=== PATIENT | female | born 1955 | race Caucasian/White ===

== ENCOUNTER → 2023-08-30 11:39 | Outpatient (REF) | payer OTHER, MEDICARE, SELFPAY | LOC: RAD 11:39 | PROVIDERS: ATTENDING PHYSICIAN Surgery Vascular Surgery; FAMILY PHYSICIAN Psychiatry & Neurology Neurology | DX: I65.22 Occlusion and stenosis of left carotid artery (principal) | CPT/HCPCS: 93880 ==

== ENCOUNTER 2023-10-27 18:59 | Inpatient (IN) | payer OTHER, MEDICARE, SELFPAY ==
[2023-10-27 15:24] VITALS: BP 167/66
[2023-10-27 15:29] LABS: Glucose - Point of Care 462 mg/dl (70-99)
[2023-10-27 15:51] VITALS: BMI 39.2
--- NOTE | 2023-10-27 16:17 | ED.GENMED ---
History of Present Illness
<Blaise Quintana PA-C - Last Filed: 10/27/23 17:53>
General
Chief Complaint: Blood Sugar Problem
Source: patient
Exam Limitations: none
Time Seen by Provider: 10/27/23 15:53
Travel History
Have you had any contact with someone who has COVID-19?: No
Do you have any symptoms of coronavirus? Fever > 100 degrees, chills, cough, shortness of breath, sore throat, loss of taste or smell, muscle aches, or headache?: No
History of Present Illness
History of Present Illness:
68-year-old female insulin-dependent diabetic with history of kidney transplant presents with generalized feeling of fatigue and weakness. She states she has had elevated blood sugars at home. She is on insulin. She denies chest pain. No
shortness of breath. She denies abdominal pain but does note about 7 episodes of loose stool daily. No urinary symptoms. She denies any blood in the stool. No other complaints at this time
Past History
<Blaise Quintana PA-C - Last Filed: 10/27/23 17:53>
Past History
ED Past Medical History: Asthma, CHF, HTN, Hypercholesterolemia, IDDM, NIDDM, Renal failure, Hypothyroidism, Psychiatric (Depression), Other (Left internal carotid artery 70% stenosis May 2022) and Other (History of sarcoidosis, diverticulitis,
pancreatitis, IBS, Migraine, TIA May 2022); Negative CAD
ED Past Surgical History: Cholecystectomy, Gynecological (Hysterectomy), Orthopedic (Carpal tunnel), Urological (Kidney tranplant 2013) and Other (Left arm fistula, hysterectomy and D&C, carpal tunnel surgery)
Social History
Tobacco: Former smoker
Alcohol: None
Drug: None and Former user
Personal:
Living: with family
Employment: Disabled
Family History
Family History: Hypertension
Phy Exam
<Blaise Quintana PA-C - Last Filed: 10/27/23 17:53>
Physical Exam
Physical Exam:
General: Well-appearing female no acute respiratory distress
HEENT: Normocephalic atraumatic
Heart: Regular rate and rhythm no murmurs
Lungs: Clear to auscultation bilaterally no wheezing
Abdomen: Soft nontender nondistended no guarding or rebound
Extremities: No cyanosis or edema
Course
<Blaise Quintana PA-C - Last Filed: 10/27/23 17:53>
Orders/Labs/Results
Orders:
Orders
10/27/23 Dinner
1800 calorie (15 carb) Diabetic
At Your Request: Limited Participation
Diabetic Diet: Low Residue
10/27/23 16:44
Complete Blood Count/With Diff Urgent
Comprehensive Metabolic Panel Urgent
Magnesium Urgent
10/27/23 17:29
0.9% Sodium Chloride 1000 ml [Nss] 1,000 ml IV BOLUS
10/27/23 17:39
Urinalysis Reflex To Culture Urgent
Date Specimen was Collected: 10/27/23
Time Specimen was Collected: 17:37
Urine Microscopic Reflex Cult Urgent
Urine Culture Urgent
KYMBER[facility] Source: U
Specimen Description:
Date Specimen was Collected: 10/27/23
Time Specimen was Collected: 17:37
10/27/23 17:50
Stool Culture Urgent
KYMBERLY Source: Feces/Stool
Specimen Description:
10/27/23 17:51
STOOL [C difficile Antigen & Toxins] Urgent
KYMB[facility] Source: Feces/Stool
Specimen Description:
Stool Culture Urgent
KYMB[facility] Source: Feces/Stool
Specimen Description:
10/27/23 17:55
Giardia/Cryptosporidium Ag Urgent
KYMBER[facility] Source: Feces/Stool
Specimen Description:
10/27/23 17:56
Add On- LAB Routine
Tests Added?: mag level
10/27/23 18:11
CR Abdomen - 2 Views Urgent
Comment:
Reason For Exam: abdominal pain
10/27/23 18:13
Insulin Aspart Pen [Novolog Flexpen] 20 units SC NOW STA
10/27/23 18:18
Insulin Aspart Pen [Novolog Flexpen] 25 units SC NOW STA
10/27/23 18:30
0.9% Sodium Chloride 1000 ml [Nss] 1,000 ml IV 120 mls/hr
Abnormal Lab Results
10/27/23 10/27/23 10/27/23
15:27 16:44 17:39
RBC 3.99 L 10^6/uL
(4.20-5.40)
Hgb 10.9 L g/dL
(12.0-16.0)
Hct 33.4 L %
(37.0-47.0)
MCHC 32.6 L g/dL
(33.0-37.0)
MPV 10.7 H fL
(7.4-10.4)
Absolute Neuts (auto) 7.4 H 10^3/uL
(1.4-6.5)
Absolute Monos (auto) 0.7 H 10^3/uL
(0.1-0.6)
Neutrophils % 75.5 H %
(42.2-75.2)
Lymphocytes % 12.6 L %
(20.5-51.1)
Sodium 127 L mmol/L
(135-145)
Potassium 5.7 H mmol/L
(3.5-5.1)
Carbon Dioxide 21 L mmol/L
(22-30)
BUN 26 H mg/dl
(7-17)
Glucose 422 H mg/dl
(70-99)
Leukocyte Esterase Rfl Trace A
(Negative)
Urine Bacteria (Reflex) Moderate A
(Negative)
Urine Glucose 3+ A
(Negative)
POC Glucose 462 H* mg/dl
(70-99)
10/27/23 16:44
10/27/23 16:44
Vital Signs
Initial and Last Documented VS:
Initial Vital Signs
Temp Pulse Resp BP Pulse Ox
97.9 F 64 18 167/66 98
10/27/23 15:24 10/27/23 15:24 10/27/23 15:24 10/27/23 15:24 10/27/23 15:24
Last Documented Vital Signs
Temp Pulse Resp BP Pulse Ox
97.9 F 64 18 167/66 97
10/27/23 15:24 10/27/23 15:24 10/27/23 15:24 10/27/23 15:24 10/27/23 16:38
<Jamia Miller MD - Last Filed: 10/27/23 18:20>
Orders/Labs/Results
Orders:
Orders
10/27/23 Dinner
1800 calorie (15 carb) Diabetic
At Your Request: Limited Participation
Diabetic Diet: Low Residue
10/27/23 16:44
Complete Blood Count/With Diff Urgent
Comprehensive Metabolic Panel Urgent
Magnesium Urgent
10/27/23 17:29
0.9% Sodium Chloride 1000 ml [Nss] 1,000 ml IV BOLUS
10/27/23 17:39
Urinalysis Reflex To Culture Urgent
Date Specimen was Collected: 10/27/23
Time Specimen was Collected: 17:37
Urine Microscopic Reflex Cult Urgent
Urine Culture Urgent
KYMB[facility] Source: U
Specimen Description:
Date Specimen was Collected: 10/27/23
Time Specimen was Collected: 17:37
10/27/23 17:50
Stool Culture Urgent
[facility] Source: Feces/Stool
Specimen Description:
10/27/23 17:51
STOOL [C difficile Antigen & Toxins] Urgent
[facility] Source: Feces/Stool
Specimen Description:
Stool Culture Urgent
[facility] Source: Feces/Stool
Specimen Description:
10/27/23 17:55
Giardia/Cryptosporidium Ag Urgent
[facility] Source: Feces/Stool
Specimen Description:
10/27/23 17:56
Add On- LAB Routine
Tests Added?: mag level
10/27/23 18:11
CR Abdomen - 2 Views Urgent
Comment:
Reason For Exam: abdominal pain
10/27/23 18:13
Insulin Aspart Pen [Novolog Flexpen] 20 units SC NOW STA
10/27/23 18:18
Insulin Aspart Pen [Novolog Flexpen] 25 units SC NOW STA
10/27/23 18:30
0.9% Sodium Chloride 1000 ml [Nss] 1,000 ml IV 120 mls/hr
Abnormal Lab Results
10/27/23 10/27/23 10/27/23
15:27 16:44 17:39
RBC 3.99 L 10^6/uL
(4.20-5.40)
Hgb 10.9 L g/dL
(12.0-16.0)
Hct 33.4 L %
(37.0-47.0)
MCHC 32.6 L g/dL
(33.0-37.0)
MPV 10.7 H fL
(7.4-10.4)
Absolute Neuts (auto) 7.4 H 10^3/uL
(1.4-6.5)
Absolute Monos (auto) 0.7 H 10^3/uL
(0.1-0.6)
Neutrophils % 75.5 H %
(42.2-75.2)
Lymphocytes % 12.6 L %
(20.5-51.1)
Sodium 127 L mmol/L
(135-145)
Potassium 5.7 H mmol/L
(3.5-5.1)
Carbon Dioxide 21 L mmol/L
(22-30)
BUN 26 H mg/dl
(7-17)
Glucose 422 H mg/dl
(70-99)
Leukocyte Esterase Rfl Trace A
(Negative)
Urine Bacteria (Reflex) Moderate A
(Negative)
Urine Glucose 3+ A
(Negative)
POC Glucose 462 H* mg/dl
(70-99)
10/27/23 16:44
10/27/23 16:44
Vital Signs
Initial and Last Documented VS:
Initial Vital Signs
Temp Pulse Resp BP Pulse Ox
97.9 F 64 18 167/66 98
10/27/23 15:24 10/27/23 15:24 10/27/23 15:24 10/27/23 15:24 10/27/23 15:24
Last Documented Vital Signs
Temp Pulse Resp BP Pulse Ox
97.9 F 64 18 167/66 97
10/27/23 15:24 10/27/23 15:24 10/27/23 15:24 10/27/23 15:24 10/27/23 16:38
<Blaise Quintana PA-C - Last Filed: 10/27/23 17:53>
MDM/Problems Addressed
Differential Diagnosis Includes:
Diarrhea. Elevated blood sugars. Benign abdominal exam. Will check labs to evaluate for acidosis. Fingerstick blood sugar 462. Check for electrolyte abnormality otherwise.
<Blaise Quintana PA-C - Last Filed: 10/27/23 17:53>
*Critical Care Note
Total Time (30-74mins, 75-104mins- exclusive of procedures): Not Applicable
<Blaise Quintana PA-C - Last Filed: 10/27/23 17:53>
Update Note
Update Note:
Sodium 127. Serum glucose 422. No anion gap. Patient overall feels unwell looks dry on exam will hydrate. Stool studies ordered secondary to diarrhea. Will hydrate with saline. Admit to hospitalist. Renal transplant status hyperglycemia and
dehydration
ED Attending Note
<Blaise Quintana PA-C - Last Filed: 10/27/23 17:53>
-
Portions of this chart may have been created with voice recognition software.� Occasional wrong word or��sound alike� substitutions may have occurred due to the inherent limitations of voice recognition software.
<Jamia Miller MD - Last Filed: 10/27/23 18:20>
ED Attending Note
Patient seen and examined by attending physician: Yes
I performed the substantive portion of visit, reviewed & personally made and approve the management plan that is documented in note by myself or LOTTIE.: Yes
ED Attending Note:
Patient appears nontoxic. Lungs are clear abdomen is soft nontender. Patient will be admitted for [id number] blood sugar and dehydration.
Discharge Plan
Departure
Patient Disposition: Admit
Date of Disposition: 10/27/23
Time of Disposition: 17:52
Admit to: Med/Surg
Presentation/result/management discussed w/ accepting MD/DO: Hospitalist
Discharge Problem:
Dehydration
Prescriptions:
No Action
pantoprazole 40 MG tablet,delayed release (DR/EC)
40 mg PO DAILY
tacrolimus 1 MG capsule
4 mg PO BID
escitalopram oxalate 20 MG tablet
20 mg PO DAILY
mycophenolate sodium 180 MG tablet,delayed release (DR/EC)
360 mg PO BID
acetaminophen [Tylenol Extra Strength] 500 MG tablet
1,000 mg PO BIDPRN PRN (Reason: mild pain)
cyanocobalamin (vitamin B-12) 1,000 MCG tablet
1,000 mcg PO HS
magnesium oxide 500 MG tablet
500 mg PO BID
ezetimibe 10 MG tablet
10 mg PO DAILY
spironolactone 25 mg Tablet
25 mg PO DAILY Qty: 30 0RF
losartan 50 mg Tablet
50 mg PO BID Qty: 60 0RF
carvedilol 6.25 mg Tablet
6.25 mg PO BID
loperamide [Imodium] 2 mg Capsule
2 mg PO DAILY
aspirin 81 mg Tablet,Delayed Release (Dr/Ec)
81 mg PO HS
albuterol sulfate 90 mcg/actuation Hfa Aerosol Inhaler
2 puff INHALATION R Q4HPRN PRN (Reason: sob)
insulin lispro [Humalog KwikPen Insulin] 100 unit/mL Insulin Pen
15 unit SC AC
budesonide-formoterol 160-4.5 mcg/actuation HFA aerosol inhaler
1 puff INHALATION R BID
omega 2-syl-hos-fish oil [Fish Oil] 1,000 mg (120 mg-180 mg) Capsule
1 cap PO BID
insulin glargine U-300 conc [Toujeo Max U-300 SoloStar] 300 unit/mL (3 mL) Insulin Pen
68 unit SC HS
atorvastatin 80 mg tablet
80 mg PO HS
hydralazine 50 mg tablet
50 mg PO BID
Referrals:
PRIVATE,PHYSICIAN [Family Provider] -
Interventions
Interventions:
*Risk Screen - Suicide Last Done: 10/27/23 15:24
*General Assessment Last Done: 10/27/23 15:24
*Neglect/Abuse Screening Last Done: 10/27/23 15:24
*ED COVID-19 Vaccine History Last Done: 10/27/23 15:24
ED- Cardiac Assessment Last Done: 10/27/23 15:52
ED- Neurological Assessment Last Done: 10/27/23 16:38
ED- Pulmonary Assessment Last Done: 10/27/23 16:38
Discharge Date and Time
Print Language: CAP[place] VERDE[place]
[2023-10-27 16:52] LABS: % Basophils 0.5 % (0-2); % Eosinophils 3.9 % (0-6); % Immature Granulocytes 0.4 % (0-0.5); % Lymphocytes 12.6 % (20.5-51.1); % Monocytes 7.1 % (1.7-9.3); % Neutrophils 75.5 % (42.2-75.2); Absolute Basophils 0.1 10^3/uL (0-0.2); Absolute Eosinophils 0.4 10^3/uL (0-0.7); Absolute Lymphocytes 1.2 10^3/uL (1.2-3.4); Absolute Monocytes 0.7 10^3/uL (0.1-0.6); Absolute Neutrophils 7.4 10^3/uL (1.4-6.5); Hematocrit 33.4 % (37.0-47.0); Hemoglobin 10.9 g/dL (12.0-16.0); Mean Corp Hgb Conc. 32.6 g/dL (33.0-37.0); Mean Corpuscular Hgb 27.3 pg (27.0-31.0); Mean Corpuscular Volume 83.7 fL (81.0-99.0); Mean Platelet Volume 10.7 fL (7.4-10.4); Nucleated Red Blood Cells % 0 %; Platelet Count 241 10^3/uL (130-400); Red Blood Cell Count 3.99 10^6/uL (4.20-5.40); Red Cell Dist. Width 13.7 % (11.5-14.5); White Blood Cell Count 9.8 10^3/uL (4.8-10.8)
[2023-10-27 17:07] LABS: ALT (SGPT) 15 U/L (0-35); AST (SGOT) 17 U/L (14-36); Albumin 3.5 g/dl (3.5-5.0); Alkaline Phosphatase 82 U/L (38-126); Blood Urea Nitrogen 26 mg/dl (7-17); Calcium 9.9 mg/dl (8.4-10.2); Carbon Dioxide 21 mmol/L (22-30); Chloride 100 mmol/L (98-107); Estimated Creatinine Clearance 90 ml/min; Glucose 422 mg/dl (70-99); Potassium 5.7 mmol/L (3.5-5.1); Sodium 127 mmol/L (135-145); Total Bilirubin 0.6 mg/dl (0.2-1.3); Total Protein 6.6 g/dl (6.3-8.2); eGFR > 60.00
[2023-10-27] MEDS: NSS 1000 IV ×2 (17:45→20:37)
[2023-10-27 17:53] LABS: Urine Albumin Negative (Neg - Trace); Urine Bilirubin Negative (Negative); Urine Character Clear (Clear); Urine Color Yellow; Urine Glucose 3+ (Negative); Urine Ketone Negative (Negative); Urine Leukocyte Trace (Negative); Urine Nitrite Negative (Negative); Urine Occult Blood Negative (Negative); Urine Urobilinogen Negative (Neg - 1+)
[2023-10-27 18:01] LABS: Urine Red Blood Cell 0-2 /HPF (0-2); Urine White Cell 0-2 /HPF (0-5)
[2023-10-27 18:02] LABS: Urine Bacteria Moderate (Negative)
--- NOTE | 2023-10-27 18:04 | HPS.HSE ---
Addendum entered and electronically signed by Mohit Lugo MD 10/28/23 07:48:
see separate note
Original Note:
Family Physician
-
Family Physician: PHYSICIAN PRIVATE
Chief Complaint
-
Diarrhea and Elevated Glucose
History of Present Illness
Patient is a 68 y/o female who a past medical history of diabetes mellitus, kidney transplant, asthma/chronic obstructive pulmonary disease, heart failure, hypertension, hyperlipidemia, depression, left carotid artery stenosis, and gastroesophageal
reflux disease who presents for chronic diarrhea for about 8 months and high blood sugars with fatigue for the past few months. She reports intermittent episodes of diarrhea with 7 to 8 loose to liquid stools per day. She admits to occasional
constipation during this time period with the last episode occurring many weeks ago. She reports blood sugar readings in the 300s to 400s over the past few months. She states that she sometimes titrates her insulin to account for high blood sugar
but does not often do this. She denies vomiting, abdominal pain, hematochezia, chest pain, and shortness of breath.
Medical History
Past Medical History
Past Medical History: Reports Other
Additional Past Medical History:
Diabetes Mellitus, Insulin Dependent
Essential Hypertension
Hyperlipidemia
Renal Transplant
Sarcoidosis
Asthma
Depression
GERD
Irritable Bowel Syndrome
Left Carotid Artery Stenosis s/p Endarterectomy
Past Surgical History: Reports Other
Additional Past Surgical History:
Kidney Transplant
Left Endarterectomy
Hysterectomy
Bilateral Carpal Tunnel
Social History
Tobacco: Former Smoker
Alcohol: Occasional
Family History
Family History: Not pertinent
Allergies / Home Medications
Allergies reflects when Allergies were last updated in [facility].
Home Medications with original date entered in [facility]
Allergy/Medication List:
Allergies
Allergy/AdvReac Type Severity Reaction Status Date / Time
adhesive tape [Adhesive Tape] Allergy Rash Verified 10/27/23 15:26
Cephalosporins Allergy resp.failur Verified 10/27/23 15:26
e
exenatide [From [place]] Allergy pancreatiti Verified 10/27/23 18:17
s
penicillin V Allergy resp.failur Verified 10/27/23 15:26
e
pollen extracts Allergy Hayfever Verified 10/27/23 15:26
sulfamethoxazole Allergy low blood Verified 10/27/23 18:17
sugar
tree and shrub pollen Allergy Unknown Verified 10/27/23 15:26
trimethoprim Allergy low blood Verified 10/27/23 18:17
sugar
SOME BERRIES Allergy Unknown Uncoded 10/27/23 15:26
Home Medications
escitalopram oxalate 20 mg tablet 20 mg PO DAILY Mental Health/Anxiety 08/05/16
mycophenolate sodium 180 mg tablet,delayed release 360 mg PO BID Transplant 08/05/16
pantoprazole 40 mg tablet,delayed release 40 mg PO DAILY Gastrointestinal issue 08/05/16
tacrolimus 1 mg capsule, immediate-release 4 mg PO BID Transplant 08/05/16
acetaminophen 500 mg tablet (Tylenol Extra Strength) 1,000 mg PO BIDPRN PRN mild pain 09/05/19
cyanocobalamin (vitamin B-12) 1,000 mcg tablet 1,000 mcg PO HS Supplement 09/01/21
ezetimibe 10 mg tablet 10 mg PO DAILY High cholesterol 09/01/21
magnesium oxide 500 mg PO BID Electrolyte Repletion 09/01/21
losartan 50 mg tablet 50 mg PO BID Blood pressure #60 tabs 06/10/22
spironolactone 25 mg tablet 25 mg PO DAILY Blood pressure #30 tabs 06/10/22
albuterol sulfate 90 mcg/actuation aerosol inhaler 2 puff inhalation R Q4HPRN PRN sob 10/27/23
aspirin 81 mg tablet,delayed release 81 mg PO HS 10/27/23
atorvastatin 80 mg tablet 80 mg PO HS High cholesterol 10/27/23
budesonide-formoterol HFA 160 mcg-4.5 mcg/actuation aerosol inhaler 1 puff inhalation R BID 10/27/23
carvedilol 6.25 mg tablet 6.25 mg PO BID 10/27/23
hydralazine 50 mg tablet 50 mg PO BID Blood pressure 10/27/23
insulin glargine U-300 conc 300 unit/mL (3 mL) subcutaneous pen (Toujeo Max U-300 SoloStar) 68 unit SC HS 10/27/23
insulin lispro 100 unit/mL subcutaneous pen (Humalog KwikPen (U-100) Insulin) 15 unit SC AC 10/27/23
loperamide 2 mg capsule 2 mg PO DAILY 10/27/23
omega 4-pau-cix-fish oil 1,000 mg (120 mg-180 mg) capsule (Fish Oil) 1 cap PO BID 10/27/23
Review of Systems
-
A 12 point ROS was completed and negative except as noted: Yes
Constitutional: Denies Fever or Chills
Respiratory: Denies Cough or Trouble Breathing
Cardiac: Denies Chest Pain or Palpitations
Abdomen/GI: Reports See HPI
Physical Exam
Vital Signs
Vital Signs
Temp Pulse Resp BP Pulse Ox
97.9 F 64 18 167/66 97
10/27/23 15:24 10/27/23 15:24 10/27/23 15:24 10/27/23 15:24 10/27/23 16:38
Physical Exam
General: Comfortable and Conversant
HEENT: Anicteric and Atraumatic
Respiratory: Clear and Non Labored Respirations
Cardiac: S1/S2 and Regular Rhythm
GI: Soft, Non Tender and Non Distended
Rectal: Deferred by Provider
Musculoskeletal: No Clubbing, No Cyanosis and No Edema
Skin: Warm and Dry
Neuro: Awake, Alert and Oriented
Psych: Calm
Laboratory Results
-
10/27/23 16:44
10/27/23 16:44
Laboratory Results
Total Bilirubin 0.6 mg/dl (0.2-1.3) 10/27/23 16:44
AST 17 U/L (14-36) 10/27/23 16:44
ALT 15 U/L (0-35) 10/27/23 16:44
Alkaline Phosphatase 82 U/L (38-126) 10/27/23 16:44
Data Reviewed
-
Lab Data: Labs Reviewed by me
Old Records: Reviewed
Impression/Plan
-
Diarrhea
-Patient with prior history of irritable bowel syndrome
-Consult GI
-Check stool studies
-Change Protonix to Pepcid
-Hold magnesium supplement as possible contributing factor
-Allow low residue diet
Hyperkalemia
-Hold losartan and Spironolactone
-Continue IVFs
-Recheck potassium later this evening
Hyponatremia, mild
-Corrected sodium 132
-Continue IVFs
-Recheck sodium in AM
Diabetes Mellitus, Insulin Dependent - Currently with Hyperglycemia
-Check HgbA1c
-Continue Lantus 35 units BID
-Give Novolog 25 units Now- then continue 15 units with meals
-Further changes based on sugars
Essential Hypertension
-Continue Coreg, and hydralazine
-Hold losartan and spironolactone due to hyperkalemia
Hyperlipidemia
-Continue atorvastatin and ezetimibe
Renal Transplant
-Continue mycophenolate and tacrolimus
Asthma / COPD, no acute exacerbation
-Continue budesonide
Depression
-Continue Lexapro
GERD
-Change Protonix to Pepcid
Hx Left Carotid Artery Stenosis s/p Left Carotid Endarterectomy
-Continue aspirin
Sarcoidosis with Bone/Joint Involvement
-Stable
DVT Proph: Lovenox
Code Status: Full Code
--- NOTE | 2023-10-27 18:15 | W.PN.UPDATE ---
Update Note
Progress Note Update
I saw and examined the patient.
The WELL TESTER or PA's note was reviewed and I agree with the note.
Formulated the plan together
Comment:
Female with multiple medical problems has been having diarrhea for the past 8 months. She has not seen a GI doctor since then. She has also been seeing elevated blood sugars for the past couple of months. She usually follows up with Dr. Valerio
from GI and also with Dr. Duffy from endocrinology. Patient denies any abdominal pain. She denies any recent antibiotic intake. Patient has a history of cadaveric renal transplant at [facility] 10 years ago. Follows up with
Glory .
She was feeling weak and blood sugars were elevated therefore came to the hospital. On examination nontoxic-appearing awake alert oriented
Not in any distress denies any abdominal pain cardiovascular system S1-S2 appreciated
Chest clear to auscultation
Abdomen soft and nontender
Neuroexam is nonfocal
No pedal edema
# Diarrhea
Immunocompromised patient
Stool studies ordered
Check x-ray of the abdomen to rule out constipation
Colonoscopy 03/04/2022-stool in the entire examined colon diverticulosis in sigmoid colon and descending colon. Internal hemorrhoids
Hold magnesium
GI consultation
# Hyponatremia-spurious from elevated blood sugar
Repeat BMP later tonight
# Hyperkalemia secondary to hyperglycemia
Repeat BMP tonight
# Poorly controlled diabetes with neuropathy
Change Lantus insulin to 35 units twice daily
NovoLog insulin 25 units now
update hemoglobin A1c
IV Fluids
15 units with sliding scale coverage
1800 ADA diet
Dietary consultation
# Renal transplant 10 years ago- donor transplant at [facility]-2013
Continue tacrolimus 4 mg p.o. twice daily, mycophenolate 360 g p.o. twice daily
Check tacrolimus level
# Ugoqsovyymzo-yvvdduhgt-xlinzehhc
hold losartan and Aldactone until potassium is stable
Continue hydralazine, Coreg
# Hyperlipidemia-continue Zetia, atorvastatin
# Depression-continue Lexapro
# Anemia check iron studies
# History of TIA 05/30/22-status post left CEA 06/01/2022
# Asthma-continue desonide and albuterol inhalers or:
# Fibromyalgia
# Chronic HFpEF
Echo 10/21/2021-normal LV size and function. EF 55 to 60%. Mild to moderate LVH.
# Chronic back pain
# Diverticulosis
# Sarcoidosis by history
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
# Obesity with a BMI of 39 weight loss recommended
# DVT prophylaxis-Lovenox
# Full code
See H&P for details
complex decision making
[2023-10-27 18:30] LABS: Magnesium 1.8 mg/dl (1.6-2.3)
[2023-10-27 18:35] LABS: Iron 66 ug/dl (37-170)
[2023-10-27 18:44] LABS: Percent Saturation 25 % (20-50); Total Iron Binding Capacity 257 ug/dl (265-497)
[2023-10-27 18:59] LABS: Glucose - Point of Care 353 mg/dl (70-99)
[2023-10-27 19:29] LABS: Ferritin 53.9 ng/ml (11.1-264.0)
[2023-10-27 19:43] LABS: Vitamin B12 898 pg/ml (239-931)
[2023-10-27 19:50] VITALS: BMI 39.4
[2023-10-27 19:59] VITALS: BP 200/94
[2023-10-27] MEDS: SYMBICORT 160/4.5 MCG INHALER 1 PUFF INH (20:01)
[2023-10-27 20:37] LABS: Glucose - Point of Care 325 mg/dl (70-99)
[2023-10-27] MEDS: NOVOLOG FLEXPEN 25 UNITS SC (20:37)
[2023-10-27] MEDS: APRESOLINE 50 MG PO (20:38)
[2023-10-27] MEDS: COREG 6.25 MG PO (20:38)
[2023-10-27] MEDS: MYFORTIC DELAYED REL. 360 MG PO (20:38)
[2023-10-27] MEDS: PROGRAF 4 MG PO (20:39)
[2023-10-27 20:45] VITALS: BP 148/56
[2023-10-27 21:05] LABS: Blood Urea Nitrogen 24 mg/dl (7-17); Calcium 9.7 mg/dl (8.4-10.2); Carbon Dioxide 20 mmol/L (22-30); Chloride 101 mmol/L (98-107); Estimated Creatinine Clearance 90 ml/min; Glucose 316 mg/dl (70-99); Potassium 5.3 mmol/L (3.5-5.1); Sodium 129 mmol/L (135-145); eGFR > 60.00
[2023-10-27 21:15] VITALS: BMI 39.2
[2023-10-27 21:36] LABS: TSH Reflex To Free T4 1.18 uIU/ml (0.47-4.68)
[2023-10-27 22:58] LABS: Glucose - Point of Care 240 mg/dl (70-99)
[2023-10-27] MEDS: LANTUS 0.349999999999999978 UNITS SC (23:00)
[2023-10-27] MEDS: LIPITOR 80 MG PO (23:12)
[2023-10-27] MEDS: VITAMIN B-12 1000 MCG PO (23:12)
[2023-10-27] MEDS: ASPIR LOW (ENTERIC COATED) 81 MG PO (23:12)
[2023-10-27 23:18] VITALS: BP 145/58
[2023-10-28] VITALS (12 sets, daily range): BP systolic 16–187; BP diastolic 37–85; PULSE 64; BMI 39.2
[2023-10-28] MEDS: NSS 1000 IV (04:57)
[2023-10-28 06:00] LABS: Hematocrit 30.2 % (37.0-47.0); Hemoglobin 9.8 g/dL (12.0-16.0); Mean Corp Hgb Conc. 32.5 g/dL (33.0-37.0); Mean Corpuscular Hgb 27.5 pg (27.0-31.0); Mean Corpuscular Volume 84.6 fL (81.0-99.0); Mean Platelet Volume 10.7 fL (7.4-10.4); Platelet Count 239 10^3/uL (130-400); Red Blood Cell Count 3.57 10^6/uL (4.20-5.40); Red Cell Dist. Width 13.8 % (11.5-14.5); White Blood Cell Count 9.6 10^3/uL (4.8-10.8)
[2023-10-28 06:39] LABS: Blood Urea Nitrogen 23 mg/dl (7-17); Calcium 9.2 mg/dl (8.4-10.2); Carbon Dioxide 20 mmol/L (22-30); Chloride 106 mmol/L (98-107); Estimated Creatinine Clearance 90 ml/min; Glucose 201 mg/dl (70-99); Magnesium 1.7 mg/dl (1.6-2.3); Potassium 4.7 mmol/L (3.5-5.1); Sodium 132 mmol/L (135-145); eGFR > 60.00
--- NOTE | 2023-10-28 07:45 | PTCARENOTE ---
Patient arrived on unit @1945 from ED via stretcher, ambulate from stretcher to bed. Patient AAOx3, denies any pain or discomfort. Skin assessment completed, oriented to unit, call birch within reach.
[2023-10-28 08:03] LABS: Glucose - Point of Care 199 mg/dl (70-99)
[2023-10-28] MEDS: SYMBICORT 160/4.5 MCG INHALER 1 PUFF INH ×2 (08:35→20:52)
[2023-10-28] MEDS: NOVOLOG FLEXPEN 15 UNITS SC ×2 (08:36→16:16)
[2023-10-28] MEDS: NOVOLOG FLEXPEN-MODERATE RESISTANCE 1 UNITS SC (08:37)
[2023-10-28] MEDS: MYFORTIC DELAYED REL. 360 MG PO ×2 (08:37→19:31)
[2023-10-28] MEDS: PROGRAF 4 MG PO ×2 (08:37→19:31)
[2023-10-28] MEDS: COREG 6.25 MG PO ×2 (08:37→19:31)
[2023-10-28] MEDS: APRESOLINE 50 MG PO ×2 (08:38→19:31)
[2023-10-28] MEDS: LEXAPRO 20 MG PO (08:38)
[2023-10-28] MEDS: PEPCID 20 MG PO (08:39)
[2023-10-28] MEDS: ZETIA 10 MG PO (08:39)
[2023-10-28] MEDS: MAGNESIUM SULFATE 102 GRAMS IV (08:45)
[2023-10-28] MEDS: LANTUS 0.359999999999999987 UNITS SC (08:45)
[2023-10-28 08:53] LABS: Glycohemoglobin (HgbA1c) 12.8 % (4.0-5.6)
--- NOTE | 2023-10-28 08:55 | CON.GI ---
Addendum entered and electronically signed by Ella Valerio MD 10/28/23 15:40:
I saw and examined the patient.
The HYDRAULICS TEACHER or PA's note was reviewed and I agree with the note.
Comment: 68-year-old female with history of sarcoidosis, kidney transplant, currently on immunosuppression with tacrolimus, COPD, CVA, fibromyalgia, history of cholecystectomy presenting with acute on chronic diarrhea. She has history of chronic
diarrhea for several years, she was previously tested for celiac disease that was negative, biopsies showing mild increase in intraepithelial lymphocytes on upper endoscopy without any villous blunting, could not confirm for celiac disease.
Previous colonoscopy with acute on chronic inflammation on biopsies in 2021, CMV negative, thought to be self-limiting enterocolitis, no evidence of inflammatory bowel disease noted. Testing negative for bowel obstruction. Baseline bowel movements
at least 3-4 but in the last several months about 7 to 8-week nocturnal episodes and urgency. No blood or mucus. Recent weight loss of 10 pounds in the last 1 month but not prior to that. This admission coming in with diarrhea and some
electrolyte abnormalities.
She is currently on tacrolimus and also magnesium through her transplant team.
-Acute on chronic diarrhea, unclear etiology
Stool studies negative for C. difficile, Cryptosporidium, Giardia, norovirus, cultures pending. Previous workup negative for infection
Agree with rechecking celiac panel, fecal fat
Flexible sigmoidoscopy showed normal colon, random biopsies still pending
Okay for low residue, low lactose diet
Monitor electrolytes and replete
Avoid artificial sweeteners. Magnesium supplements would cause diarrhea, could see if we can cut down on the magnesium as an outpatient. As an inpatient we could hold the magnesium and monitor electrolytes while she is in the hospital to see if
the diarrhea improves as well.
Will do MR enterography to evaluate the small bowel.
Will follow-up
Original Note:
Consultation
-
Date/Time Consultation Requested: 10/27/23 @ 19:45
Date/Time Consultation Performed: 10/28/23 @ 08:30
Requesting Provider: Jonna Rae PA-C
Performing Provider: ASHLEIGH Martinez; Dr. Ella Valerio
Reason for Consultation: diarrhea
Medical History
Chief Complaint / HPI
Chief Complaint: diarrhea, elevated glucose
History of Present Illness:
The pt is a 68 yo female with a complex medical history significant for renal transplant in 2013 on Tacrolimus, diabetes mellitus on insulin, IBS with chronic diarrhea, hypertension, hyperlipidemia, COPD, chronic CHF, left carotid artery stenosis,
depression, chronic GERD, hiatal hernia, who presented to the emergency room secondary to ongoing diarrhea and elevated glucose. We are being asked to evaluate for the presenting symptoms. The patient is well-known to Dr. Valerio outpatient, had
been previously seen in October 2021 with complaints of chronic diarrhea with intermittent worsening bouts. She had EGD and colonoscopy at that time, with a colonoscopy revealing normal endoscopic exam but biopsies consistent with a focal active
colitis without chronicity and CMV negative. EGD without convincing evidence for celiac disease. She had also undergone evaluation for diarrhea in the past in 2016 in which colonoscopy was done showing concern for possible lymphocytic colitis but
inconclusive. Fecal fats were normal at this time. She had CT imaging done in 2021 without contrast secondary to her history of kidney disease and kidney transplant which did not show any concerning GI findings aside from a relatively stable 5.8
cm right lobe liver cyst. She has not followed up in the office since 2021, but reports she has been having ongoing diarrhea over the past 8 months. She notes that she will have anywhere from 7-8 bowel movements daily with urgency and fecal
incontinence. She notes they are primarily loose with occasional formed stool every few weeks but primarily with diarrhea. She does use Imodium once daily which does help at times but other times does not. She will get constipated as mentioned
above but does not take anything as she is afraid to have the opposite effect with her ongoing diarrhea. She is on chronic magnesium supplement with magnesium oxide twice daily as directed by her keyboarding teacher after her kidney transplant which she
has been on for 10 years. She otherwise denies any abdominal pain, nausea, vomiting, heartburn, reflux, dysphagia, odynophagia, melena, hematochezia, hematemesis, fevers, or chills. She does note she has lost about 10 pounds over the past month
but did not notice this and her appetite has not been changed. She denies regular use of NSAIDs. She does reports infrequent alcohol use. She denies any new medications. She does endorse using artificial sweeteners as she is diabetic and does
drink diet soda. She does not admit to any intolerance of lactose or gluten. She denies any family history's for colon cancer or other GI cancers or disorders. Per nursing she had 2 bowel movements yesterday and none as of this morning. Upon
admission stool studies were sent for Giardia, crypto, C. difficile, stool WBC, and stool culture which are pending. Significant lab findings on admission include sodium 127, potassium 5.7, WBC 9.8, hemoglobin 10.9, BUN 26, creatinine 0.7, glucose
422, magnesium 1.8, serum iron 66, TIBC 257, iron saturation 25, ferritin 53.9, total bilirubin 0.6, AST 17, ALT 15, alk phos 82, vitamin B12 898, TSH 1.18. She did undergo an x-ray of her abdomen which did not show any significant stool burden
with a nonobstructive bowel gas pattern. She was admitted for further evaluation by GI and for monitoring of her electrolytes. Noted this morning with a sodium of 132 and potassium of 4.7. Magnesium was placed on hold at the time of admission.
Past Medical History
Past Medical History: Asthma, CHF, COPD, CVA, Fibromyalgia, GERD, HTN, Hypercholesterolemia, IDDM and Other (Renal transplant, sarcoidosis, gout, obesity, depression, hypomagnesemia, vitamin D deficiency, osteoporosis)
Past Surgical History: Cholecystectomy and Other (Renal transplant 2013, history of AV fistula left upper extremity, left carpal tunnel release, hysterectomy, right carpal tunnel release, rectocele/cystocele repair 2015)
Social History
Tobacco: Non-Smoker
Alcohol: None
Drug: None
Family History
Family History: Reviewed & Not Pertinent
Allergies / Home Medications
Allergy/AdvReac Type Severity Reaction Status Date / Time
adhesive tape [Adhesive Tape] Allergy Rash Verified 10/27/23 15:26
Cephalosporins Allergy resp.failur Verified 10/27/23 15:26
e
exenatide [From [place]] Allergy pancreatiti Verified 10/27/23 18:17
s
penicillin V Allergy resp.failur Verified 10/27/23 15:26
e
pollen extracts Allergy Hayfever Verified 10/27/23 15:26
sulfamethoxazole Allergy low blood Verified 10/27/23 18:17
sugar
tree and shrub pollen Allergy Unknown Verified 10/27/23 15:26
trimethoprim Allergy low blood Verified 10/27/23 18:17
sugar
SOME BERRIES Allergy Unknown Uncoded 10/27/23 15:26
�Medication �Instructions �Recorded
escitalopram oxalate 20 mg tablet 20 mg PO DAILY Mental 08/05/16
Health/Anxiety
mycophenolate sodium 180 mg 360 mg PO BID Transplant 08/05/16
tablet,delayed release
pantoprazole 40 mg tablet,delayed 40 mg PO DAILY Gastrointestinal 08/05/16
release issue
tacrolimus 1 mg capsule, 4 mg PO BID Transplant 08/05/16
immediate-release
acetaminophen 500 mg tablet 1,000 mg PO BIDPRN PRN mild pain 09/05/19
(Tylenol Extra Strength)
cyanocobalamin (vitamin B-12) 1,000 mcg PO HS Supplement 09/01/21
1,000 mcg tablet
ezetimibe 10 mg tablet 10 mg PO DAILY High cholesterol 09/01/21
magnesium oxide 500 mg PO BID Electrolyte Repletion 09/01/21
losartan 50 mg tablet 50 mg PO BID Blood pressure #60 06/10/22
tabs
spironolactone 25 mg tablet 25 mg PO DAILY Blood pressure #30 06/10/22
tabs
albuterol sulfate 90 mcg/actuation 2 puff inhalation R Q4HPRN PRN sob 10/27/23
aerosol inhaler
aspirin 81 mg tablet,delayed 81 mg PO HS 10/27/23
release
atorvastatin 80 mg tablet 80 mg PO HS High cholesterol 10/27/23
budesonide-formoterol HFA 160 1 puff inhalation R BID 10/27/23
mcg-4.5 mcg/actuation aerosol
inhaler
carvedilol 6.25 mg tablet 6.25 mg PO BID 10/27/23
hydralazine 50 mg tablet 50 mg PO BID Blood pressure 10/27/23
insulin glargine U-300 conc 300 68 unit SC HS 10/27/23
unit/mL (3 mL) subcutaneous pen
(Toujeo Max U-300 SoloStar)
insulin lispro 100 unit/mL 15 unit SC AC 10/27/23
subcutaneous pen (Humalog KwikPen
(U-100) Insulin)
loperamide 2 mg capsule 2 mg PO DAILY 10/27/23
omega 7-eha-han-fish oil 1,000 mg 1 cap PO BID 10/27/23
(120 mg-180 mg) capsule (Fish Oil)
Review of Systems
-
History Source: Patient
Constitutional: Reports Weight Loss (10 pounds)
EENT: Reports No Symptoms
Respiratory: Reports No Symptoms
Cardiac: Reports No Symptoms
Abdomen/GI: Reports Diarrhea
: Reports No Symptoms
Musculoskeletal: Reports No Symptoms
Skin: Reports No Symptoms
Neurological: Reports No Symptoms
Vital Signs
Temp Pulse Resp BP Pulse Ox
97.7 F 65 16 187/85 96
10/28/23 07:30 10/28/23 08:49 10/28/23 08:49 10/28/23 07:30 10/28/23 08:49
Physical Exam
Exam
General: Well Developed, Well Nourished and No Apparent Distress
HEENT: Normocephalic, Anicteric and Atraumatic
Respiratory: Clear
Cardiac: S1/S2 and Regular Rhythm
Breast: Deferred by me
GI: Soft, Non Tender, Non Distended, Normal Bowel Sounds and Other (obese abdomen)
Rectal: Deferred by Provider
Musculoskeletal: No Edema
Skin: Warm and Dry
Neuro: Awake, Alert and Oriented
Psych: Calm
Results
WBC 9.6 10^3/uL (4.8-10.8) 10/28/23 05:47
Hgb 9.8 g/dL (12.0-16.0) L 10/28/23 05:47
Hct 30.2 % (37.0-47.0) L 10/28/23 05:47
MCV 84.6 fL (81.0-99.0) 10/28/23 05:47
Plt Count 239 10^3/uL (130-400) 10/28/23 05:47
Absolute Neuts (auto) 7.4 10^3/uL (1.4-6.5) H 10/27/23 16:44
Sodium 132 mmol/L (135-145) L 10/28/23 05:47
Potassium 4.7 mmol/L (3.5-5.1) 10/28/23 05:47
Chloride 106 mmol/L (98-107) 10/28/23 05:47
Carbon Dioxide 20 mmol/L (22-30) L 10/28/23 05:47
BUN 23 mg/dl (7-17) H 10/28/23 05:47
Creatinine 0.7 mg/dL (0.6-1.0) 10/28/23 05:47
Calcium 9.2 mg/dl (8.4-10.2) 10/28/23 05:47
Total Bilirubin 0.6 mg/dl (0.2-1.3) 10/27/23 16:44
AST 17 U/L (14-36) 10/27/23 16:44
ALT 15 U/L (0-35) 10/27/23 16:44
Alkaline Phosphatase 82 U/L (38-126) 10/27/23 16:44
Diagnostic Image Results:
10/27/23 XR abdomen: non-obstructive bowel gas pattern.
Prior GI Procedures:
EGD: 03/04/2022 Dr. Valerio: No gross lesions in the entire esophagus. Biopsied. Z-line variable, 38 cm from the incisors. Small hiatal hernia. Multiple gastric polyps. Resected and retrieved. Injected. Clips were placed. A single duodenal polyp.
Biopsied. Normal examined duodenum. Biopsied. Path showing mild increase in intraepithelial lymphocytes vascular congestion with preserved villous architecture of the small bowel suggesting less likely celiac disease. Small bowel/duodenal bulb
polyp consistent with foveolar gastric metaplasia. Stomach polyps consistent with hyperplastic polyps with focal ulceration negative for H. pylori. Esophageal biopsies negative.
2011 Dr. Valerio: No gross lesions in esophagus. Z-line irregular, 37 cm from the incisors. This was biopsied. Hiatus hernia. Gastric mucosal abnormality in the antrum characterized by erythema. This was biopsied. [id number] mucosal abnormality in
the gastric body characterized by erythema. This was biopsied. A few gastric polyps. This was biopsied. Bilious gastric fluid. Erythematous duodenopathy. Normal 2nd part of the duodenum. This was biopsied. Path showing chronic gastritis neg celiac,
h pylori, slade's.
Colonoscopy: 03/04/2022 Dr. Valerio: Preparation of the colon was fair. The examined portion of the ileum was normal. Stool in the entire examined colon. Normal mucosa in the entire examined colon. Biopsied. Diverticulosis in the sigmoid colon and in
the descending colon. Internal hemorrhoids. Path showing focal active colitis with focal cryptitis without chronicity suggestive of resolving infectious etiology.
2016 colonoscopy: One 2 mm polyp in the cecum, removed with a jumbo cold forceps. Resected and retrieved. The entire examined colon is normal. Biopsied. Diverticulosis in the sigmoid colon and in the descending colon. Path showing TA polyp, random
bx normal.
2011, Dr. Valerio:Preparation of the colon was fair. Non-thrombosed external hemorrhoids. The examined portion of the ileum was normal. One 3 mm polyp in the cecum. Resected and retrieved. One 5 mm polyp at the splenic flexure. Resected and
retrieved. One 3 mm polyp in the descending colon. Resected and retrieved. One 3 mm polyp in the rectum. Resected and retrieved. Diverticulosis in the sigmoid colon. One hemostatic clip was successfully placed. Path showing 2 TA polyps, 1 TV
adenomatous polyp.
Assessment / Plan
-
The pt is a 68 yo female with a complex medical history significant for renal transplant in 2013 on Tacrolimus, diabetes mellitus on insulin, IBS with chronic diarrhea, hypertension, hyperlipidemia, COPD, chronic CHF, left carotid artery stenosis,
depression, chronic GERD, hiatal hernia, who presented to the emergency room secondary to ongoing diarrhea and elevated glucose found to have significant hyponatremia and hyperkalemia. She has a longstanding history of intermittent diarrhea,
worsened over the past 8 months with no obvious triggers or changes in her medical therapy. She has had colonoscopies several times in the past in which biopsies were negative for lymphocytic colitis, but did show focally active colitis on
colonoscopy biopsies in 2021 which did not suggest any chronicity. She denies any recent antibiotics or new medications. She denies any other symptoms such as abdominal pain, melena, or hematochezia. She does take Imodium with no significant
improvement. She has history of renal transplant in 2013 and does take chronic tacrolimus and magnesium. Stool studies on admission negative for crypto/Giardia and C. difficile with stool culture pending. Her diarrhea has improved since holding
magnesium.
Problem list:
-Acute on chronic diarrhea
-History of renal transplant in 2013 on tacrolimus
-Hyponatremia, improving
-Hyperkalemia, resolved
-Insulin-dependent diabetes mellitus, hemoglobin A1c 12.8
-Normocytic anemia, acute on chronic with normal iron studies
Other pertinent medical hx:
-HTN
-HLD
-COPD
-Chronic CHF
-Carotid artery stenosis
-depression
-chronic GERD
-hiatal hernia
Recommendations:
-Etiology of diarrhea unclear, possibly medication induced with chronic magnesium v malabsorption v IBS v infectious v inflammatory cause v other.
---With chronicity less likely infectious but will await stool culture (giardia, crypto, cdiff is negative). X-ray of the abdomen did not show any overt constipation
-Reviewed with Dr. Valerio at the bedside along with the pt, plan to do flex sig today for bx given the chronicity of her symptoms to rule out lymphocytic colitis
-Will make n.p.o. at this time and give enema x 2 prior to the procedure
-Will send pancreatic elastase and fecal calprotectin
-Continue to hold magnesium for now. May need to reduce to once daily and have more frequent magnesium levels checked. She will need to discuss with her keyboarding teacher
-Pending above to consider small bowel imaging with MR enterography to rule out any small bowel etiology for her chronic symptom
-Will check a celiac panel as well although prior EGD biopsies did not suggest celiac disease
-Will limit her diet to low lactose and advised her to avoid artificial sweeteners as these can cause diarrhea
-Monitor stool output
-Follow electrolytes and replete as per hospitalist
-Will follow
Data Reviewed
-
Old Records: Reviewed
-
-
Thank you for consultation and allowing me to participate in the patient's care. Please call the agricultural extension agent GI physician during the after hours with any questions or concerns.
[2023-10-28] MEDS: LANTUS SC (09:04)
[2023-10-28 09:32] LABS: TSH 0.84 uIU/ml (0.47-4.68)
[2023-10-28 10:39] LABS: Glucose - Point of Care 187 mg/dl (70-99)
--- NOTE | 2023-10-28 11:03 | W.PN.HOSP.TC ---
Today's Communication/Plan
-
Flex Sig
Adjust insulin
Assessment / Plan
Assessment / Plan
Cardiovascular system S1-S2 appreciated
Chest clear to auscultation
Abdomen soft and nontender
Neuroexam is nonfocal
No pedal edema
Has a Head ache this am
# Diarrhea
Immunocompromised patient
Stool studies ordered
Abd X ray NAD
Colonoscopy 03/04/2022-stool in the entire examined colon diverticulosis in sigmoid colon and descending colon. Internal hemorrhoids
Hold PO magnesium-May need slow mag at discharge
Flex Sig today
GI consultation
# Hyponatremia-spurious from elevated blood sugar
Repeat BMP better
# Hyperkalemia secondary to hyperglycemia
Repeat BMP better
# Poorly controlled diabetes with neuropathy
Change Lantus insulin to 37U HS and 36U in am
Update hemoglobin A1c
IV Fluids can be stopped
15 units with sliding scale coverage, titrate up as needed
1800 ADA diet
Dietary consultation
# Renal transplant 10 years ago- donor transplant at [facility]-2013
Continue tacrolimus 4 mg p.o. twice daily, mycophenolate 360 g p.o. twice daily
Check tacrolimus level
# Jpskuvpwkare-laegvgoqz-zkqnqhmkh
hold losartan and Aldactone until potassium is stable
Continue hydralazine, Coreg, restart Losartan if BP runs higher
# Hyperlipidemia-continue Zetia, atorvastatin
# Depression-continue Lexapro
# Anemia check iron studies
# History of TIA 05/30/22-status post left CEA 06/01/2022
# Asthma-continue desonide and albuterol inhalers or:
# Fibromyalgia
# Chronic HFpEF
Echo 10/21/2021-normal LV size and function. EF 55 to 60%. Mild to moderate LVH.
# Chronic back pain
# Diverticulosis
# Sarcoidosis by history
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
# Obesity with a BMI of 39 weight loss recommended
# DVT prophylaxis-Lovenox
# Full code
D/W RN at bed side
Anticipated Discharge: 24 - 48 hours
Subjective/Interval History
-
Date of Service: October 28, 2023
Objective Data
-
Labs:
Laboratory Results
10/28/23
05:47
WBC 9.6
Hgb 9.8 L
Hct 30.2 L
Plt Count 239
Sodium 132 L
Potassium 4.7
Chloride 106
Carbon Dioxide 20 L
BUN 23 H
Creatinine 0.7
Glucose 201 H
Calcium 9.2
Vital Signs:
Vital Signs
Temp Pulse Resp BP Pulse Ox
97.7 F 64 16 100/56 96
10/28/23 07:30 10/28/23 09:02 10/28/23 08:49 10/28/23 09:02 10/28/23 08:49
I&O
10/27/23 10/28/23 10/29/23
06:59 06:59 06:59
Intake Total 1656 / 1656
Balance 1656 / 1656
[2023-10-28] MEDS: TYLENOL 1000 MG PO (11:07)
[2023-10-28] MEDS: NOVOLOG FLEXPEN SC (12:00)
[2023-10-28] MEDS: NOVOLOG FLEXPEN-MODERATE RESISTANCE SC ×2 (12:01→17:26)
[2023-10-28 12:42] LABS: Glucose - Point of Care 137 mg/dl (70-99)
--- NOTE | 2023-10-28 14:17 | W.PN.UPDATE ---
Update Note
Progress Note Update
s/p Flex sigmoidoscopy-
- Normal mucosa in the rectum, in the recto-sigmoid colon, in the sigmoid colon, in the descending colon, at the splenic flexure and in the transverse colon. Biopsied.
- Diverticulosis in the sigmoid colon and in the descending colon.
- The examination was otherwise normal.
Plan
- Await pathology results.
- Lactose free diet and low residue diet, diabetic diet.
- Telephone GI clinic for pathology results in 2 weeks.
- Resume previous diet.
- No ibuprofen, naproxen, or other non-steroidal anti-inflammatory drugs for 5 days after biopsy.
--- NOTE | 2023-10-28 15:26 | CM ---
Met with pt at bedside
Lives with her in a 2 story condo
Reports independent with ADL's, household management
DME - includes rolling walker, wheel chair, shower chair
SNF - denies past history
HH - has had [facility] in past
PCP - Dr Latrice Pearce
Pharm - [facility]
Has ride at d/c
PT recs - no needs at this time
Plan - anticipate home no needs vs with VN
[2023-10-28 16:15] LABS: Glucose - Point of Care 110 mg/dl (70-99)
[2023-10-28] MEDS: LOVENOX 40 MG SC (17:27)
[2023-10-28] MEDS: MYLICON 80 MG PO (18:48)
[2023-10-28 21:20] LABS: Glucose - Point of Care 101 mg/dl (70-99)
[2023-10-28] MEDS: ASPIR LOW (ENTERIC COATED) 81 MG PO (21:47)
[2023-10-28] MEDS: LIPITOR 80 MG PO (21:47)
[2023-10-28] MEDS: LANTUS 0.369999999999999996 UNITS SC (21:47)
[2023-10-28] MEDS: VITAMIN B-12 1000 MCG PO (21:47)
[2023-10-29 03:35] VITALS: BP 146/69
[2023-10-29 06:00] VITALS: BMI 39.2
[2023-10-29 07:00] VITALS: BP 159/73
[2023-10-29 07:51] LABS: Glucose - Point of Care 135 mg/dl (70-99)
[2023-10-29] MEDS: SYMBICORT 160/4.5 MCG INHALER 1 PUFF INH ×2 (08:02→18:10)
[2023-10-29] MEDS: LEXAPRO 20 MG PO (08:55)
[2023-10-29] MEDS: COREG 6.25 MG PO ×2 (08:55→20:28)
[2023-10-29] MEDS: PEPCID 20 MG PO (08:55)
[2023-10-29] MEDS: APRESOLINE 50 MG PO ×2 (08:56→20:29)
[2023-10-29] MEDS: MYFORTIC DELAYED REL. 360 MG PO ×2 (08:56→20:30)
[2023-10-29] MEDS: PROGRAF 4 MG PO ×2 (08:56→20:31)
[2023-10-29] MEDS: ZETIA 10 MG PO (08:56)
[2023-10-29] MEDS: LANTUS 0.359999999999999987 UNITS SC (08:58)
[2023-10-29] MEDS: NOVOLOG FLEXPEN 15 UNITS SC ×2 (09:02→12:15)
[2023-10-29] MEDS: NOVOLOG FLEXPEN-MODERATE RESISTANCE SC (09:05)
[2023-10-29 09:23] LABS: Hematocrit 32.8 % (37.0-47.0); Hemoglobin 10.6 g/dL (12.0-16.0); Mean Corp Hgb Conc. 32.3 g/dL (33.0-37.0); Mean Corpuscular Hgb 27.4 pg (27.0-31.0); Mean Corpuscular Volume 84.8 fL (81.0-99.0); Mean Platelet Volume 10.6 fL (7.4-10.4); Platelet Count 243 10^3/uL (130-400); Red Blood Cell Count 3.87 10^6/uL (4.20-5.40); Red Cell Dist. Width 14.2 % (11.5-14.5); White Blood Cell Count 9.1 10^3/uL (4.8-10.8)
--- NOTE | 2023-10-29 10:39 | W.PN.HOSP.TC ---
Today's Communication/Plan
-
Start Cipro for UTI
Watch BMS
MRE
Assessment / Plan
Assessment / Plan
Cardiovascular system S1-S2 appreciated
Chest clear to auscultation
Abdomen soft and nontender
Neuroexam is nonfocal
No pedal edema
# Diarrhea
Immunocompromised patient
Stool studies ordered
Abd X ray NAD
Colonoscopy 03/04/2022-stool in the entire examined colon diverticulosis in sigmoid colon and descending colon. Internal hemorrhoids
Hold PO magnesium-May need slow mag at discharge
Flex Sig 10/28/2023-normal mucosa in the rectum, rectosigmoid colon, sigmoid colon, descending colon, splenic flexure and transverse colon. Biopsies were taken. Few large mouth and small mouth diverticula in the sigmoid and descending colon.
MRE ordered. Not done today because patient was not NPO. Made n.p.o. for tomorrow
C. difficile negative, cultures pending, Cryptosporidium/Giardia/norovirus negative
GI consultation
#UTI- In transplant and immunocompromised pt- will need AB
Check EKG to see if we can start Cipro (Allergy to PCN and Cephalosporin)
# Hyponatremia-spurious from elevated blood sugar
Repeat BMP better
# Hyperkalemia secondary to hyperglycemia
Repeat BMP better
# Poorly controlled diabetes with neuropathy
Change Lantus insulin to 37U HS and 36U in am
Hemoglobin A1c 12.8 indicates poor control as outpatient
IV Fluids can be stopped
15 units with sliding scale coverage, titrate up as needed
Sugars much better
1800 ADA diet
Dietary consultation placed for education
# Renal transplant 10 years ago- donor transplant at [facility]-2013
Continue tacrolimus 4 mg p.o. twice daily, mycophenolate 360 g p.o. twice daily
Tacrolimus level pending
# Ufbelkundiws-maedjshsu-zmlcrtxnq
hold Aldactone
Continue hydralazine, Coreg, restart Losartan
# Hyperlipidemia-continue Zetia, atorvastatin
# Depression-continue Lexapro
# Anemia NOS
# History of TIA 05/30/22-status post left CEA 06/01/2022
# Asthma-continue Budesonide and albuterol inhalers
# Fibromyalgia
# Chronic HFpEF
Echo 10/21/2021-normal LV size and function. EF 55 to 60%. Mild to moderate LVH.
# Chronic back pain
# Diverticulosis
# Sarcoidosis by history
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
# Obesity with a BMI of 39 weight loss recommended
# DVT prophylaxis-Lovenox
# Full code
D/W RN at bed side
Anticipated Discharge: 24 - 48 hours
Subjective/Interval History
-
Date of Service: October 29, 2023
Objective Data
-
Labs:
Laboratory Results
10/29/23
08:44
WBC 9.1
Hgb 10.6 L
Hct 32.8 L
Plt Count 243
Sodium Pending
Potassium Pending
Chloride Pending
Carbon Dioxide Pending
BUN Pending
Creatinine Pending
Glucose Pending
Calcium Pending
Vital Signs:
Vital Signs
Temp Pulse Resp BP Pulse Ox
98.0 F 64 18 159/73 96
10/29/23 07:00 10/29/23 08:56 10/29/23 08:06 10/29/23 08:56 10/29/23 08:06
I&O
10/28/23 10/29/23 10/30/23
06:59 06:59 06:59
Intake Total 1656 / 1656 540 / 540
Balance 1656 / 1656 540 / 540
[2023-10-29 10:46] LABS: Blood Urea Nitrogen 19 mg/dl (7-17); Calcium 9.4 mg/dl (8.4-10.2); Carbon Dioxide 21 mmol/L (22-30); Chloride 110 mmol/L (98-107); Estimated Creatinine Clearance 90 ml/min; Glucose 128 mg/dl (70-99); Potassium 5.1 mmol/L (3.5-5.1); Sodium 135 mmol/L (135-145); eGFR > 60.00
[2023-10-29 11:25] VITALS: BP 158/62
[2023-10-29 11:27] LABS: Glucose - Point of Care 240 mg/dl (70-99)
--- NOTE | 2023-10-29 11:35 | W.PN.GI.CBS2 ---
Today's Communication / Plan
-
-Acute on chronic diarrhea, unclear etiology
Stool studies negative for C. difficile, Cryptosporidium, Giardia, norovirus, cultures pending. Previous workup negative for infection
Agree with rechecking celiac panel, fecal fat
Flexible sigmoidoscopy showed normal colon, random biopsies still pending
Continue for low residue, low lactose diet
Monitor electrolytes and replete
Avoid artificial sweeteners. Magnesium supplements would cause diarrhea, could see if we can cut down on the magnesium as an outpatient. As an inpatient we could hold the magnesium and monitor electrolytes while she is in the hospital to see if
the diarrhea improves as well.
Await MR enterography to evaluate the small bowel.
Will follow-up
Assessment / Plan
-
-Acute on chronic diarrhea, unclear etiology
Stool studies negative for C. difficile, Cryptosporidium, Giardia, norovirus, cultures pending. Previous workup negative for infection
Agree with rechecking celiac panel, fecal fat
Flexible sigmoidoscopy showed normal colon, random biopsies still pending
Continue for low residue, low lactose diet
Monitor electrolytes and replete
Avoid artificial sweeteners. Magnesium supplements would cause diarrhea, could see if we can cut down on the magnesium as an outpatient. As an inpatient we could hold the magnesium and monitor electrolytes while she is in the hospital to see if
the diarrhea improves as well.
Await MR enterography to evaluate the small bowel.
Will follow-up
Subjective
Subjective
Date of Service: October 29, 2023
reports 1 loose stool after flexible sigmoidoscopy yesterday but nothing since.
On low residue diet but feels full.
Objective
Data Reviewed
Laboratory Data:
Laboratory Results
10/29/23 08:44
10/29/23 08:44
Laboratory Results
Magnesium 1.7 mg/dl (1.6-2.3) 10/28/23 05:47
Total Bilirubin 0.6 mg/dl (0.2-1.3) 10/27/23 16:44
AST 17 U/L (14-36) 10/27/23 16:44
ALT 15 U/L (0-35) 10/27/23 16:44
Alkaline Phosphatase 82 U/L (38-126) 10/27/23 16:44
Vital Signs and I&O:
Vital Signs
Temp Pulse Resp BP Pulse Ox
98.0 F 64 18 158/62 97
10/29/23 07:00 10/29/23 08:56 10/29/23 08:06 10/29/23 11:25 10/29/23 08:35
I&O
10/28/23 10/29/23 10/30/23
06:59 06:59 06:59
Intake Total 1656 / 1656 540 / 540
Balance 1656 / 1656 540 / 540
Physical Exam
Physical Exam
GI: Soft, Non Distended and Non Tender
[2023-10-29 11:36] LABS: Magnesium 2.1 mg/dl (1.6-2.3)
[2023-10-29] MEDS: COZAAR 50 MG PO ×2 (12:14→20:30)
[2023-10-29] MEDS: CIPRO 500 MG PO ×2 (12:15→20:30)
[2023-10-29] MEDS: NOVOLOG FLEXPEN-MODERATE RESISTANCE 3 UNITS SC (12:16)
[2023-10-29 15:00] VITALS: BP 127/79
[2023-10-29 17:28] LABS: Glucose - Point of Care 160 mg/dl (70-99)
[2023-10-29] MEDS: NOVOLOG FLEXPEN-MODERATE RESISTANCE 1 UNITS SC (17:58)
[2023-10-29] MEDS: NOVOLOG FLEXPEN 16 UNITS SC (17:58)
[2023-10-29] MEDS: LOVENOX 40 MG SC (17:59)
[2023-10-29 18:54] LABS: Endomysial IgA Antibody Titer <1:10 (<1:10)
[2023-10-29 20:54] LABS: Tacrolimus (Prograft - FK506) 7.8 ng/mL
[2023-10-29 21:29] LABS: Glucose - Point of Care 94 mg/dl (70-99)
[2023-10-29 22:26] LABS: Glucose - Point of Care 87 mg/dl (70-99)
[2023-10-29] MEDS: VITAMIN B-12 1000 MCG PO (22:58)
[2023-10-29] MEDS: ASPIR LOW (ENTERIC COATED) 81 MG PO (22:58)
[2023-10-29] MEDS: LANTUS 0.100000000000000006 UNITS SC (22:58)
[2023-10-29] MEDS: LIPITOR 80 MG PO (22:58)
--- NOTE | 2023-10-29 23:01 | PTCARENOTE ---
Patient's BS 87, FABRICATION SUPERVISOR made aware patient has Lantus 37 units ordered. New order received for Lantus 10 units tonight.
[2023-10-29] MEDS: LANTUS SC (23:03)
[2023-10-29 23:46] VITALS: BP 147/62
[2023-10-30 01:07] LABS: Fat, Fecal - Neutral Normal (Normal); Fat, Fecal - Split Normal (Normal)
[2023-10-30] MEDS: TYLENOL 650 MG PO ×2 (03:21→22:23)
[2023-10-30 03:30] VITALS: BP 141/57
[2023-10-30 05:39] VITALS: BMI 39.1
[2023-10-30 06:13] LABS: Glucose - Point of Care 146 mg/dl (70-99)
[2023-10-30] MEDS: NOVOLOG FLEXPEN SC (07:30)
[2023-10-30 07:48] LABS: Glucose - Point of Care 164 mg/dl (70-99)
[2023-10-30 08:03] VITALS: BP 143/65
[2023-10-30] MEDS: SYMBICORT 160/4.5 MCG INHALER 1 PUFF INH ×2 (08:18→21:11)
[2023-10-30] MEDS: PROGRAF 4 MG PO ×2 (08:27→20:05)
[2023-10-30] MEDS: LANTUS 0.359999999999999987 UNITS SC (08:27)
[2023-10-30] MEDS: MYFORTIC DELAYED REL. 360 MG PO ×2 (08:28→20:05)
[2023-10-30] MEDS: ZETIA 10 MG PO (08:29)
[2023-10-30] MEDS: LEXAPRO 20 MG PO (08:29)
[2023-10-30] MEDS: COREG 6.25 MG PO ×2 (08:29→20:04)
[2023-10-30] MEDS: CIPRO 500 MG PO ×2 (08:29→20:03)
[2023-10-30] MEDS: COZAAR 50 MG PO ×2 (08:29→20:04)
[2023-10-30] MEDS: APRESOLINE 50 MG PO ×2 (08:29→20:02)
[2023-10-30] MEDS: PEPCID 20 MG PO (08:29)
--- NOTE | 2023-10-30 08:55 | CM ---
Chart reviewed: ABX for UTI; pending MR enterography; monitoring electrolytes
CM will continue to follow for home health VN need; Per PT, no PT needs
[2023-10-30 11:47] LABS: Glucose - Point of Care 196 mg/dl (70-99)
[2023-10-30 11:54] VITALS: BP 119/65
[2023-10-30] MEDS: NOVOLOG FLEXPEN 16 UNITS SC ×2 (12:38→17:34)
[2023-10-30] MEDS: NOVOLOG FLEXPEN-MODERATE RESISTANCE 1 UNITS SC ×2 (12:39→17:34)
--- NOTE | 2023-10-30 13:45 | W.PN.GI.CBS2 ---
Today's Communication / Plan
-
-Acute on chronic diarrhea, unclear etiology
Stool studies negative for C. difficile, Cryptosporidium, Giardia, norovirus, cultures. Previous workup negative for infection
NEG celiac panel
Flexible sigmoidoscopy showed normal colon, random biopsies still pending
Continue for low residue, low lactose diet
Monitor electrolytes and replete
Avoid artificial sweeteners. Magnesium supplements would cause diarrhea, could see if we can cut down on the magnesium as an outpatient. As an inpatient we could hold the magnesium and monitor electrolytes while she is in the hospital to see if
the diarrhea improves as well.
MR enterography WITH MILD ileal thickeing but no suspicion for crohns as per radiology.
Will see her as OP and will possibly do SB capsule
Assessment / Plan
-
MRE- Mild amount of mucosal hyperenhancement in multiple distal ileal small bowel loops (including the terminal ileum) suggesting a mild enteritis.
No MRI evidence for sinus tract, fistula, interloop abscess, or mesenteric lymphadenopathy to strongly suggest the presence of Crohn's disease.Mild circumferential wall thickening throughout the sigmoid colon with adjacent fibrofatty mesenteric
proliferation and moderate diverticulosis (probably chronic diverticular disease and less likely inflammatory bowel disease.
-Acute on chronic diarrhea, unclear etiology
Stool studies negative for C. difficile, Cryptosporidium, Giardia, norovirus, cultures. Previous workup negative for infection
NEG celiac panel
Flexible sigmoidoscopy showed normal colon, random biopsies still pending
Continue for low residue, low lactose diet
Monitor electrolytes and replete
Avoid artificial sweeteners. Magnesium supplements would cause diarrhea, could see if we can cut down on the magnesium as an outpatient. As an inpatient we could hold the magnesium and monitor electrolytes while she is in the hospital to see if
the diarrhea improves as well.
MR enterography WITH MILD ileal thickeing but no suspicion for crohns as per radiology.
Will see her as OP and will possibly do SB capsule
Subjective
Subjective
Date of Service: October 30, 2023
Pt reports 1 stool yesterday and 1 this am but loose stool after MR contrast, no abdominal pain
Objective
Data Reviewed
Laboratory Data:
Laboratory Results
10/29/23 08:44
10/29/23 08:44
Laboratory Results
Magnesium 2.1 mg/dl (1.6-2.3) 10/29/23 08:44
Total Bilirubin 0.6 mg/dl (0.2-1.3) 10/27/23 16:44
AST 17 U/L (14-36) 10/27/23 16:44
ALT 15 U/L (0-35) 10/27/23 16:44
Alkaline Phosphatase 82 U/L (38-126) 10/27/23 16:44
Vital Signs and I&O:
Vital Signs
Temp Pulse Resp BP Pulse Ox
97.6 F 60 18 119/65 96
10/30/23 11:54 10/30/23 11:54 10/30/23 11:54 10/30/23 11:54 10/30/23 11:54
I&O
10/29/23 10/30/23 10/31/23
06:59 06:59 06:59
Intake Total 540 / 540 480 / 480
Balance 540 / 540 480 / 480
Physical Exam
Physical Exam
GI: Soft, Non Distended and Non Tender
--- NOTE | 2023-10-30 13:57 | W.PN.HOSP.TC ---
Today's Communication/Plan
-
Watch bowel movements with initiation of ciprofloxacin
Await biopsy
Decrease Lantus to 35 units in the morning
Assessment / Plan
Assessment / Plan
Cardiovascular system S1-S2 appreciated
Chest clear to auscultation
Abdomen soft and nontender
Neuroexam is nonfocal
No pedal edema
Had an accident while in MRI and more stools afterwards.
MR angiogram-mild ileal thickening no suspicion for Crohn's as per radiology.
# Diarrhea
Immunocompromised patient
Stool studies ordered
Colonoscopy 03/04/2022-stool in the entire examined colon diverticulosis in sigmoid colon and descending colon. Internal hemorrhoids
Hold PO magnesium-May need slow mag at discharge
Flex Sig 10/28/2023-normal mucosa in the rectum, rectosigmoid colon, sigmoid colon, descending colon, splenic flexure and transverse colon. Biopsies were taken. Few large mouth and small mouth diverticula in the sigmoid and descending colon.
MRE noted. Patient will need small bowel capsule study as outpatient
C. difficile negative, cultures pending, Cryptosporidium/Giardia/norovirus negative
GI consultation appreciated
Had more bowel movements today likely secondary to initiation of ciprofloxacin
#UTI- In transplant and immunocompromised pt-
Started on ciprofloxacin
# Hyponatremia-spurious from elevated blood sugar
Repeat BMP better
# Hyperkalemia secondary to hyperglycemia
Repeat BMP better
# Poorly controlled diabetes with neuropathy
Change Lantus insulin to 37U HS and 35U in am
Hemoglobin A1c 12.8 indicates poor control as outpatient
IV Fluids can be stopped
16 units with sliding scale coverage, titrate up as needed
Sugars much better
1800 ADA diet
Dietary consultation placed for education
# Renal transplant 10 years ago- donor transplant at [facility]-2013
Continue tacrolimus 4 mg p.o. twice daily, mycophenolate 360 g p.o. twice daily
Tacrolimus level pending
# Eowclwfrvfgm-kksaaprjn-hvgxcklkb
hold Aldactone as blood pressure does not need it and also potassium 5.1
Continue hydralazine, Coreg, restarted Losartan
# Hyperlipidemia-continue Zetia, atorvastatin
# Depression-continue Lexapro
# Anemia NOS
# History of TIA 05/30/22-status post left CEA 06/01/2022
# Asthma-continue Budesonide and albuterol inhalers
# Fibromyalgia
# Chronic HFpEF
Echo 10/21/2021-normal LV size and function. EF 55 to 60%. Mild to moderate LVH.
# Chronic back pain
# Diverticulosis
# Sarcoidosis by history
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
# Obesity with a BMI of 39 weight loss recommended
# DVT prophylaxis-Lovenox
# Full code
D/W RN at bed side
Discussed with GI
Anticipated Discharge: 24 - 48 hours
Subjective/Interval History
-
Date of Service: October 30, 2023
Objective Data
-
Vital Signs:
Vital Signs
Temp Pulse Resp BP Pulse Ox
97.6 F 60 18 119/65 96
10/30/23 11:54 10/30/23 11:54 10/30/23 11:54 10/30/23 11:54 10/30/23 11:54
I&O
10/29/23 10/30/23 10/31/23
06:59 06:59 06:59
Intake Total 540 / 540 480 / 480
Balance 540 / 540 480 / 480
[2023-10-30] MEDS: IMODIUM 2 MG PO (15:13)
[2023-10-30 15:30] VITALS: BP 94/71
[2023-10-30 16:48] LABS: Glucose - Point of Care 162 mg/dl (70-99)
--- NOTE | 2023-10-30 17:29 | CON.ID ---
Consultation
-
Date/Time Consultation Requested: October 30, 2023 [id number]
Date/Time Consultation Performed: October 30, 2023 1730
Requesting Provider: Dr. Mohit Lugo
Performing Provider: Dr. Taisha Fuentes
Reason for Consultation: Renal txp with UTI, chronic diarrhea
Chief Complaint / Past History
Chief Complaint
High blood sugar
History of Present Illness
68-year-old female with diabetes mellitus, hypertension, renal transplant in 2013 who came to the hospital on October 26 due to persistently high glucose of 300s. She also has been complaining of diarrhea x 8 months. No fevers or chills. Stool
cultures/studies negative. She had colonoscopy which showed diverticulosis. She had MRE. Her admission urine culture + E.coli She was started on Cipro yesterday. Initially she had worsening diarrhea with the Cipro. However today the diarrhea
is improved. She never had UTI in the past. No urinary symptoms of dysuria or urinary urgency. No kidney transplant pain. Last night she did have urinary frequency along with the increased diarrhea. Regarding the penicillin allergy, she was
born prematurely; she received penicillin twice and both times she had respiratory failure. She she has never taken cephalosporins in the past.
Past History
Additional Past Medical History:
Diabetes Mellitus, Insulin Dependent
Renal transplant (2013)
Essential Hypertension
Hyperlipidemia
COPD
HFpEF
Hx Sarcoidosis/ erythema nodosum
Depression
GERD
TIA
Irritable Bowel Syndrome
Right eye blindness
Left Carotid Artery Stenosis s/p Endarterectomy
Bilateral capal tunnel surgery
Allergy History:
adhesive tape [Adhesive Tape] Allergy (Verified 10/27/23 15:26)
Rash
Cephalosporins Allergy (Verified 10/27/23 15:26)
resp.failure
exenatide [From [place]] Allergy (Verified 10/27/23 18:17)
pancreatitis
penicillin V Allergy (Verified 10/27/23 15:26)
resp.failure
pollen extracts Allergy (Verified 10/27/23 15:26)
Hayfever
sulfamethoxazole Allergy (Verified 10/27/23 18:17)
low blood sugar
tree and shrub pollen Allergy (Verified 10/27/23 15:26)
Unknown
trimethoprim Allergy (Verified 10/27/23 18:17)
low blood sugar
SOME BERRIES Allergy (Uncoded 10/27/23 15:26)
Unknown
Medications Reviewed: Yes
Current Antibiotics:
Ciprofloxacin day 2
Social History
Tobacco: Former Smoker
Alcohol: Occasional
Drug: None
Family History
Family History: Not Pertinent
Review of Systems
Review of Systems
General: Negative Fever, Chills or Change in Appetite
HEENT: Negative Sinus Problems or Headache
Respiratory: Negative Dyspnea or Cough
Gasteroenterology: Negative Nausea or Vomiting
Genital / Urological: Negative Dysuria or Hematuria
Endocrine: Negative Weakness
Skin / Hair / Nails: Negative Rash
Neurological: Negative Headache or Dizziness
All systems: All other systems were reviewed and were negative
Vital Signs
Temp Pulse Resp BP Pulse Ox
97.7 F 68 16 94/71 96
10/30/23 15:30 10/30/23 15:30 10/30/23 15:30 10/30/23 15:30 10/30/23 15:30
Physical Exam
Physical Exam
Constitutional: No Acute Distress, Comfortable, Non-toxic and Obese
Eyes: Sclera Anicteric
Cardiovascular: Regular Rate and S1/S2
Pulmonary: Clear
Gastrointestinal: Soft, Non Tender and Non Distended
Genito-Urinary: Other (right lower abd transplanted kidney, nontender); Negative Suprapubic Tenderness
Extremities: Negative Edema
Neurological: AO x 3
Lab / Diagnostic Study Results
10/29/23 08:44
10/29/23 08:44
Abs Immat Gran (auto) 0.0 10^3/uL (0-0.05) 10/27/23 16:44
Absolute Neuts (auto) 7.4 10^3/uL (1.4-6.5) H 10/27/23 16:44
Absolute Lymphs (auto) 1.2 10^3/uL (1.2-3.4) 10/27/23 16:44
Absolute Monos (auto) 0.7 10^3/uL (0.1-0.6) H 10/27/23 16:44
Absolute Basos (auto) 0.1 10^3/uL (0-0.2) 10/27/23 16:44
Immature Gran % 0.4 % (0-0.5) 10/27/23 16:44
Neutrophils % 75.5 % (42.2-75.2) H 10/27/23 16:44
Lymphocytes % 12.6 % (20.5-51.1) L 10/27/23 16:44
Monocytes % 7.1 % (1.7-9.3) 10/27/23 16:44
Eosinophils % 3.9 % (0-6) 10/27/23 16:44
Basophils % 0.5 % (0-2) 10/27/23 16:44
Ur Squamous Epith Cells 6-10 /LPF (Few) 10/27/23 17:39
Microbiology Results
Micro:
10/28/23 01:10 Salmonella/Shigella Culture - Final
Feces/Stool No Salmonella, Shigella, Aeromonas or Plesiomonas species
isolated.
Campylobacter Culture - Final
No Campylobacter species isolated.
Shiga Toxin Test - Pending
10/27/23 17:39 Urine Culture - Final
Urine Escherichia coli
10/28/23 01:10 - Final
Feces/Stool Negative for Norovirus GI and GII.
10/28/23 01:10 C. difficile GDH Antigen & Toxins - Final
Feces/Stool Negative for toxigenic C.difficile
10/28/23 01:10 Cryptosporidium/Giardia - Final
Feces/Stool Negative for Cryptosporidium and/or Giardia Lamblia
antigens.
Assessment / Plan
# Renal transplant on immunosuppressive meds
# Severe PCN allergy
# Asymptomatic E. coli bacteruria
-UA without significant pyuria
- treat x 3 days only. 3rd dose of cipro tonight, then in am levofloxacin 500mg po x 1, then stop.
# Chronic diarrhea
- C. diff neg. Stool cultures negative.
- Work-up as per GI.
ID will sign off.
[2023-10-30] MEDS: LOVENOX 40 MG SC (17:34)
[2023-10-30 19:39] VITALS: BP 131/60
[2023-10-30 21:33] LABS: Glucose - Point of Care 100 mg/dl (70-99)
[2023-10-30] MEDS: LIPITOR 80 MG PO (22:23)
[2023-10-30] MEDS: ASPIR LOW (ENTERIC COATED) 81 MG PO (22:23)
[2023-10-30] MEDS: VITAMIN B-12 1000 MCG PO (22:23)
[2023-10-30] MEDS: LANTUS 0.200000000000000011 UNITS SC (22:24)
[2023-10-30] MEDS: LANTUS SC (22:28)
--- NOTE | 2023-10-30 22:29 | PTCARENOTE ---
Patient's BS 100, TELEGRAPH OFFICE TELEPHONE CLERK made aware, new order received for Lantus 20 units tonight.
[2023-10-30 23:25] VITALS: BP 122/56
[2023-10-31 03:31] VITALS: BP 125/58
[2023-10-31 05:29] LABS: IgA 595 mg/dl (70-400)
[2023-10-31 05:53] VITALS: BMI 39.1
[2023-10-31 07:00] VITALS: BP 160/64
--- NOTE | 2023-10-31 07:27 | W.PN.HOSP.TC ---
Addendum entered and electronically signed by Gustavo Singletary MD 10/31/23 15:31:
Total time spent on d/c = 40 min. This included today's physical exam, progress note, review of laboratory and diagnostic data, preparation of discharge documents and prescriptions, and discussions about the pt's hospital course and discharge plan
with the patient and other nurses medical assistants phlebotomists involved in the patient's care.
Addendum entered and electronically signed by Gustavo Singletary MD 10/31/23 15:31:
In discussing the patient's discharge medication reconciliation I did go over the patient's insulin doses. Over the last 36 hours her blood glucoses have been better controlled and she has had some insulin doses held. The patient reports she has
had diabetes since her 20s. She knows the symptoms of hypoglycemia and has glucometers at home. She expressed concern at decreasing her home insulin doses with an A1c of 12.8%. I explained to the patient that I will continue her insulins as
ordered prior to admission but she needs to keep a close eye out for symptoms of hypoglycemia. She verbally acknowledged understanding of this.
Original Note:
Today's Communication/Plan
-
possible d/c today if OK with GI
Assessment / Plan
Assessment / Plan
Gen: NAD, AAOx3.
Eyes: EOMI, PERRLA, no scleral icterus.
Neck: supple.
CV: RRR, +S1/S2, no m/r/g.
Resp: CTAB, no rales, wheezes, or rhonchi.
Abd: +BS, soft, NT, ND
Skin: No rashes.
Neuro: CN 2-12 intact, non-focal.
Psych: Normal mood and affect.
10/28/23 01:10 Feces/Stool Salmonella/Shigella Culture - Final
No Salmonella, Shigella, Aeromonas or Plesiomonas species
isolated.
10/28/23 01:10 Feces/Stool Campylobacter Culture - Final
No Campylobacter species isolated.
10/27/23 17:39 Urine Urine Culture - Final
Escherichia coli
10/28/23 01:10 Feces/Stool - Final
Negative for Norovirus GI and GII.
10/28/23 01:10 Feces/Stool C. difficile GDH Antigen & Toxins - Final
Negative for toxigenic C.difficile
10/28/23 01:10 Feces/Stool Cryptosporidium/Giardia - Final
Negative for Cryptosporidium and/or Giardia Lamblia
antigens.
MR enterography:
1. Mild amount of mucosal hyperenhancement in multiple distal ileal small bowel loops (including the terminal ileum) suggesting a mild enteritis.
2. Mild circumferential wall thickening throughout the sigmoid colon with adjacent fibrofatty mesenteric perforation and moderate diverticulosis (probably chronic diverticular disease and less likely inflammatory bowel disease).
3. No MRI evidence for sinus tract, fistula, interloop abscess, or mesenteric lymphadenopathy to strongly suggest the presence of Crohn's disease.
4. Mild splenomegaly containing bands of calcification (possibly chronic infarcts).
5. Severe bilateral atrophy of the mentasta kidneys.
6. Right lower quadrant renal transplant in place without evidence for complication.
7. Mild biliary dilatation without evidence for choledocholithiasis.
8. Previous cholecystectomy and hysterectomy.
9. 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
Diarrhea
-Immunocompromised patient
-MR enterography above, notable for mild enteritis
-Stool studies negative for acute bacterial or viral infection
-Flex Sig 10/28/2023: normal mucosa in the rectum, rectosigmoid colon, sigmoid colon, descending colon, splenic flexure and transverse colon. Biopsies were taken. Few large mouth and small mouth diverticula in the sigmoid and descending colon.
-will need small bowel capsule study as outpatient
-GI following
Acute UTI:
-in transplant and immunocompromised pt
-3 days tx with ciprofloxacin then Levaquin as per ID
DM2 with diabetic neuropathy:
-poorly controlled, Hba1c 12.8%
-cont Lantus/premeal Novolog/SSI/accuchecks/diabetic diet
-diabetes ROVING CARRIER to see
Other problems:
Pseudohyponatremia
Hyperkalemia, resolved
Renal transplant at [facility] in 2013: cont tacrolimus/mycophenolate
Essential Hypertension: Cont hydralazine/Coreg/Losartan
Hyperlipidemia: continue Zetia/atorvastatin
Depression: continue Lexapro
Anemia of chronic disease
h/o TIA 05/30/22 s/p L CEA 06/01/2022
Asthma: continue Budesonide/albuterol
Fibromyalgia
Chronic HFpEF: cont BB
Chronic back pain
Diverticulosis
Sarcoidosis by history
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
Obesity due to excess calories: Encourage weight loss. Affects all aspects of care.
FULL/Lovenox
Anticipated Discharge: Today
Subjective/Interval History
-
Date of Service: October 31, 2023
No new complaints. Denies diarrhea today.
Objective Data
-
Vital Signs:
Vital Signs
Temp Pulse Resp BP Pulse Ox
98.2 F 66 18 125/58 95
10/31/23 03:31 10/31/23 03:31 10/31/23 03:31 10/31/23 03:31 10/31/23 03:31
I&O
10/30/23 10/31/23 11/01/23
06:59 06:59 06:59
Intake Total 480 / 480 1080 / 1080
Balance 480 / 480 1080 / 1080
[2023-10-31] MEDS: SYMBICORT 160/4.5 MCG INHALER 1 PUFF INH (07:56)
[2023-10-31 08:28] LABS: Glucose - Point of Care 176 mg/dl (70-99)
[2023-10-31] MEDS: PEPCID 20 MG PO (08:41)
[2023-10-31] MEDS: LEXAPRO 20 MG PO (08:44)
[2023-10-31] MEDS: COZAAR 50 MG PO (08:44)
[2023-10-31] MEDS: PROGRAF 4 MG PO (08:44)
[2023-10-31] MEDS: COREG 6.25 MG PO (08:45)
[2023-10-31] MEDS: MYFORTIC DELAYED REL. 360 MG PO (08:45)
[2023-10-31] MEDS: LEVAQUIN 500 MG PO (08:45)
[2023-10-31] MEDS: APRESOLINE 50 MG PO (08:46)
[2023-10-31] MEDS: NOVOLOG FLEXPEN-MODERATE RESISTANCE 1 UNITS SC (08:46)
[2023-10-31] MEDS: NOVOLOG FLEXPEN 16 UNITS SC ×2 (08:46→12:24)
[2023-10-31] MEDS: ZETIA 10 MG PO (08:46)
[2023-10-31] MEDS: LANTUS 0.349999999999999978 UNITS SC (08:47)
[2023-10-31 12:09] LABS: Glucose - Point of Care 200 mg/dl (70-99)
[2023-10-31] MEDS: NOVOLOG FLEXPEN-MODERATE RESISTANCE 3 UNITS SC (12:25)
--- NOTE | 2023-10-31 13:48 | W.PN.GI.CBS2 ---
Addendum entered and electronically signed by ASHLEIGH Luke 10/31/23 14:53:
per up to date cellcept 24-53% diarrhea
Original Note:
Today's Communication / Plan
-
Etiology of diarrhea unclear
stool cx neg
celiac neg
panc elastase pending
Flexible sigmoidoscopy showed normal colon, random biopsies random bx no pathology
MR enterography WITH MILD ileal thickening but no suspicion for crohns as per radiology- messages sent to arrange OP capsule study
ok for Imodium 1 dose day
Continue low residue, low lactose diet
Monitor electrolytes
Avoid artificial sweeteners. Magnesium supplements would cause diarrhea
also discussed with patient to review cellcept with ordering MD as can also cause diarrhea
reviewed with Dr. Singletary for discharge today
Assessment / Plan
-
Pt is a 68 yo female with a complex medical history significant for renal transplant in 2013 on Tacrolimus and cellcept diabetes mellitus on insulin, IBS with chronic diarrhea, hypertension, hyperlipidemia, COPD, chronic CHF, left carotid artery
stenosis, depression, chronic GERD, hiatal hernia, who presented to the emergency room secondary to ongoing diarrhea and elevated glucose found to have significant hyponatremia and hyperkalemia. She has a longstanding history of intermittent
diarrhea, worsened over the past 8 months with no obvious triggers or changes in her medical therapy. She has had colonoscopies several times in the past in which biopsies were negative for lymphocytic colitis, but did show focally active colitis
on colonoscopy biopsies in 2021 which did not suggest any chronicity. She denies any recent antibiotics or new medications. She denies any other symptoms such as abdominal pain, melena, or hematochezia. She does take Imodium with no significant
improvement. She has history of renal transplant in 2013 and does take chronic tacrolimus and magnesium. Stool studies on admission negative for crypto/Giardia and C. difficile with stool culture pending. Her diarrhea has improved since holding
magnesium.
10/30/23 MRE- Mild amount of mucosal hyperenhancement in multiple distal ileal small bowel loops (including the terminal ileum) suggesting a mild enteritis.
No MRI evidence for sinus tract, fistula, interloop abscess, or mesenteric lymphadenopathy to strongly suggest the presence of Crohn's disease.Mild circumferential wall thickening throughout the sigmoid colon with adjacent fibrofatty mesenteric
proliferation and moderate diverticulosis (probably chronic diverticular disease and less likely inflammatory bowel disease.
10/28/23-flex sig - Normal mucosa in the rectum, in the recto-sigmoid
colon, in the sigmoid colon, in the descending colon,
at the splenic flexure and in the transverse colon.
Biopsied.
- Diverticulosis in the sigmoid colon and in the
descending colon.
- The examination was otherwise normal.
-Acute on chronic diarrhea
-ecoli + urine s/p ID evaluation
-History of renal transplant in 2013 on tacrolimus and cellcept
-Hyponatremia, improving
-Hyperkalemia, resolved
-Insulin-dependent diabetes mellitus, hemoglobin A1c 12.8
-Normocytic anemia, acute on chronic with normal iron studies
Other pertinent medical hx:
-HTN
-HLD
-COPD
-Chronic CHF
-Carotid artery stenosis
-depression
-chronic GERD
-hiatal hernia
PLAN:
Etiology of diarrhea unclear
stool cx neg
celiac neg
panc elastase pending
Flexible sigmoidoscopy showed normal colon, random biopsies random bx no pathology
MR enterography WITH MILD ileal thickening but no suspicion for crohns as per radiology- messages sent to arrange OP capsule study
ok for Imodium 1 dose day
Continue low residue, low lactose diet
Monitor electrolytes
Avoid artificial sweeteners. Magnesium supplements would cause diarrhea
also discussed with patient to review cellcept with ordering MD as can also cause diarrhea
reviewed with Dr. Singletary for discharge today
Subjective
Subjective
Date of Service: October 31, 2023
still with brown/donnelly stool, on low residue diet
Objective
Data Reviewed
Laboratory Data:
Laboratory Results
04/27/24 08:44
10/29/23 08:44
Laboratory Results
Magnesium 2.1 mg/dl (1.6-2.3) 10/29/23 08:44
Total Bilirubin 0.6 mg/dl (0.2-1.3) 10/27/23 16:44
AST 17 U/L (14-36) 10/27/23 16:44
ALT 15 U/L (0-35) 10/27/23 16:44
Alkaline Phosphatase 82 U/L (38-126) 10/27/23 16:44
Vital Signs and I&O:
Vital Signs
Temp Pulse Resp BP Pulse Ox
97.6 F 60 16 160/64 96
10/31/23 07:00 10/31/23 08:44 10/31/23 07:59 10/31/23 08:44 10/31/23 09:33
I&O
10/30/23 10/31/23 11/01/23
06:59 06:59 06:59
Intake Total 480 / 480 1080 / 1080
Balance 480 / 480 1080 / 1080
Physical Exam
Physical Exam
HEENT: Anicteric and Moist mucous membranes
Cardiology: Normal Sinus Rhythm
Pulmonary: Clear
GI: Soft, Non Distended and Non Tender
Extremities: No Edema
Neuro: Non Focal
[2023-10-31 15:00] VITALS: BP 142/66
--- NOTE | 2023-10-31 15:18 | CM ---
Case management following for d/c planning
Pt declining HH when offered
For discharge
Given IMM
Has ride home with
Plan - anticipate home no needs
--- NOTE | 2023-10-31 15:46 | W.DCSUMMARY ---
Discharge Summary
Discharge Data
Date of Admission: 10/27/23
Date of Discharge: 10/31/23
-
Pending Results: No
Hospital Course
Primary diagnoses:
Diarrhea, possibly related to CellCept
Acute urinary tract infection
Secondary diagnoses:
Type 2 diabetes mellitus, poorly controlled, with diabetic neuropathy
Pseudohyponatremia
Hyperkalemia
Renal transplant at [facility] [address] in 2013
Essential Hypertension
Hyperlipidemia
Depression
Anemia of chronic disease
h/o transient ischemic attack 05/30/22 s/p left carotid endarterectomy 06/01/2022
Asthma
Fibromyalgia
Chronic heart failure with preserved ejection fraction
Chronic back pain
Diverticulosis
Sarcoidosis by history
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
Obesity due to excess calories
Consultants:
Gastroenterology
Imaging:
MR enterography:
1. Mild amount of mucosal hyperenhancement in multiple distal ileal small bowel loops (including the terminal ileum) suggesting a mild enteritis.
2. Mild circumferential wall thickening throughout the sigmoid colon with adjacent fibrofatty mesenteric perforation and moderate diverticulosis (probably chronic diverticular disease and less likely inflammatory bowel disease).
3. No MRI evidence for sinus tract, fistula, interloop abscess, or mesenteric lymphadenopathy to strongly suggest the presence of Crohn's disease.
4. Mild splenomegaly containing bands of calcification (possibly chronic infarcts).
5. Severe bilateral atrophy of the [place] kidneys.
6. Right lower quadrant renal transplant in place without evidence for complication.
7. Mild biliary dilatation without evidence for choledocholithiasis.
8. Previous cholecystectomy and hysterectomy.
9. 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
Abd Xray: Nonobstructive bowel gas pattern.
68-year-old female who presented with chief complaints of diarrhea and hyperglycemia as outlined in the H&P done on admission. Hospital course per problem list:
Diarrhea, possibly related to CellCept: Due to the patient's history of renal transplantation the patient has been immunocompromise. She was seen in consultation by GI. MR enterography above, notable for mild enteritis. Stool studies were negative
for acute bacterial or viral infection. The patient underwent flexible sigmoidoscopy on 10/28/2023 showing normal mucosa in the rectum, rectosigmoid colon, sigmoid colon, descending colon, splenic flexure and transverse colon. Biopsies were taken.
Few large mouth and small mouth diverticula in the sigmoid and descending colon. She will need a small bowel capsule endoscopy in the outpatient setting. I did discuss the case with gastroenterology on the day of discharge. They did clear the
patient for discharge on Imodium. Her small bowel capsule study was being arranged at the time of discharge by GI. Her diarrhea resolved at the time of discharge.
Acute UTI: The patient was treated with 3 days total of antibiotic therapy as per infectious disease.
DM2 with diabetic neuropathy: Poorly controlled, Hba1c 12.8%. In discussing the patient's discharge medication reconciliation I did go over the patient's insulin doses. Over the last 36 hours her blood glucoses have been better controlled and she
has had some insulin doses held. The patient reports she has had diabetes since her 20s. She knows the symptoms of hypoglycemia and has glucometers at home. She expressed concern at decreasing her home insulin doses with an A1c of 12.8%. I
explained to the patient that I will continue her insulins as ordered prior to admission but she needs to keep a close eye out for symptoms of hypoglycemia. She verbally acknowledged understanding of this.
Discharge Plan
-
Patient Disposition: Home (Routine Discharge)
Discharge Diagnosis/Procedures: Diarrhea, poorly controlled diabetes, low sodium, history of renal transplant, hypertension, high cholesterol, depression, anemia, acute urinary tract infection, asthma, chronic heart failure, diverticulosis
Diet: 2 Gram Sodium, Low Residue and Diabetic, Carb Controlled
Additional Diets: Low lactose, avoid artificial sweeteners, magnesium supplement can cause diarrhea
Activity: As tolerated
Driving Restrictions: As prior to admission
Blood Work: BMP in 3 days, script from PCP
Other Services: VN
Activity Restrictions/Additional Instructions:
Weight loss advised
Referrals:
Sallie Duffy MD [Consulting Staff] -
PRIVATE,PHYSICIAN [Family Provider] - in less than 1 week
Ella Valerio MD [Active] - 01/03/24 11:30 am
(Please call to reschedule if you can not keep this appointment. If your insurance requires a referral please contact your primary care physician prior to your appointment.
call office to review with Coby for capsule testing. )
Rc Holder MD [Active] -
Prescriptions:
New
Slow-Mag 71.5 mg tablet,delayed release (DR/EC)
71.5 mg PO DAILY Qty: 30 0RF
Continued
pantoprazole 40 MG tablet,delayed release (DR/EC)
40 mg PO DAILY
tacrolimus 1 MG capsule
4 mg PO BID
escitalopram oxalate 20 MG tablet
20 mg PO DAILY
mycophenolate sodium 180 MG tablet,delayed release (DR/EC)
360 mg PO BID
acetaminophen [Tylenol Extra Strength] 500 MG tablet
1,000 mg PO BIDPRN PRN (Reason: mild pain)
cyanocobalamin (vitamin B-12) 1,000 MCG tablet
1,000 mcg PO HS
ezetimibe 10 MG tablet
10 mg PO DAILY
losartan 50 mg Tablet
50 mg PO BID Qty: 60 0RF
carvedilol 6.25 mg Tablet
6.25 mg PO BID
aspirin 81 mg Tablet,Delayed Release (Dr/Ec)
81 mg PO HS
albuterol sulfate 90 mcg/actuation Hfa Aerosol Inhaler
2 puff INHALATION R Q4HPRN PRN (Reason: sob)
budesonide-formoterol 160-4.5 mcg/actuation HFA aerosol inhaler
1 puff INHALATION R BID
omega 4-wyu-fad-fish oil [Fish Oil] 1,000 mg (120 mg-180 mg) Capsule
1 cap PO BID
atorvastatin 80 mg tablet
80 mg PO HS
hydralazine 50 mg tablet
50 mg PO BID
loperamide 2 mg Capsule
2 mg PO DAILY Qty: 30 0RF
Changed
insulin lispro [Humalog KwikPen Insulin] 100 unit/mL Insulin Pen
16 unit SC AC Qty: 0 0RF
insulin glargine U-300 conc [Toujeo Max U-300 SoloStar] 300 unit/mL (3 mL) Insulin Pen
37 unit SC BID Qty: 0 0RF
Discontinued
magnesium oxide 500 MG tablet
500 mg PO BID
spironolactone 25 mg Tablet
25 mg PO DAILY Qty: 30 0RF
Discharge Orders:
Discharge Patient (As Directed); Ordered 10/31/23
Ordered By: Gustavo Singletary
Discharge Date and Time
Print Language: ANGUILLAN
[2023-11-02 14:27] LABS: tTG IgA Antibody 36.2 EU/ml (0-19); tTG IgG Antibody 11.1 EU/ml (0-19)
[2023-11-03 22:18] LABS: Calprotectin, Fecal 12 ug/g (<=49)
[2023-11-03 22:20] LABS: Pancreatic Elastase, Fecal 51 ug/g (>=100)
== END 2023-10-31 17:11 | disposition home or self-care (01) | DRG 638 ==
LOC: 3 WEST ACU 18:59
PROVIDERS: Emergency Medicine; Nurse Practitioner Family; Physician Assistant; Physician Assistant Medical; ADMITTING PHYSICIAN Hospitalist; ATTENDING PHYSICIAN Internal Medicine; CONSULT PHYSICIAN Internal Medicine Gastroenterology; CONSULT PHYSICIAN Internal Medicine Infectious Disease; EMERGENCY PHYSICIAN Emergency Medicine
PROC: 0DBN8ZX Excision of Sigmoid Colon, Via Natural or Artificial Opening Endoscopic, Diagnostic (ICD-10-PCS; 2023-10-28)
DX: E11.65 Type 2 diabetes mellitus with hyperglycemia (principal); D84.821 Immunodeficiency due to drugs; E87.1 Hypo-osmolality and hyponatremia; Z94.0 Kidney transplant status; I50.32 Chronic diastolic (congestive) heart failure; Z16.24 Resistance to multiple antibiotics; N39.0 Urinary tract infection, site not specified; E86.0 Dehydration; K52.9 Noninfective gastroenteritis and colitis, unspecified; E11.40 Type 2 diabetes mellitus with diabetic neuropathy, unspecified; E87.5 Hyperkalemia; E03.9 Hypothyroidism, unspecified; E78.00 Pure hypercholesterolemia, unspecified; F32.A Depression, unspecified; I11.0 Hypertensive heart disease with heart failure; J44.89 Other specified chronic obstructive pulmonary disease; M79.7 Fibromyalgia; G89.29 Other chronic pain; M54.9 Dorsalgia, unspecified; K57.30 Diverticulosis of large intestine without perforation or abscess without bleeding; D86.9 Sarcoidosis, unspecified; K44.9 Diaphragmatic hernia without obstruction or gangrene; H54.8 Legal blindness, as defined in USA; D63.8 Anemia in other chronic diseases classified elsewhere; B96.20 Unspecified Escherichia coli [E. coli] as the cause of diseases classified elsewhere; E66.09 Other obesity due to excess calories; K21.9 Gastro-esophageal reflux disease without esophagitis; I65.22 Occlusion and stenosis of left carotid artery; J30.1 Allergic rhinitis due to pollen; K64.8 Other hemorrhoids; Z87.891 Personal history of nicotine dependence; Z79.82 Long term (current) use of aspirin; Z79.4 Long term (current) use of insulin; Z79.51 Long term (current) use of inhaled steroids; Z86.73 Personal history of transient ischemic attack (TIA), and cerebral infarction without residual deficits; Z68.39 Body mass index [BMI] 39.0-39.9, adult; Z88.1 Allergy status to other antibiotic agents; Z88.0 Allergy status to penicillin; Z91.018 Allergy to other foods; Z91.048 Other nonmedicinal substance allergy status; Z90.49 Acquired absence of other specified parts of digestive tract; Z87.19 Personal history of other diseases of the digestive system; Z79.621 Long term (current) use of calcineurin inhibitor
CPT/HCPCS: 88305; 72197; 74019; 74183; 80048; 80053; 80197; 81003; 81015; 82607; 82653; 82705; 82728; 82784; 82962; 83036; 83516; 83540; 83550; 83735; 83993; 84443; 85025; 85027; 86231; 87045; 87046; 87077; 87086; 87186; 87324; 87328; 87329; 87427; 87449; 87798; 93005; 94640; 96360; 97162; 99285; A9575

== ENCOUNTER 2023-11-10 15:22 | Day surgery (SDC) | payer OTHER, MEDICARE, SELFPAY ==
[2023-11-10] VITALS (16 sets, daily range): BP systolic 157–181; BP diastolic 51–91; BMI 37.1
--- NOTE | 2023-11-10 12:39 | ED.GENMED ---
History of Present Illness
General
Chief Complaint: Fall
Source: patient
Exam Limitations: none
Time Seen by Provider: 11/10/23 12:26
Nursing documentation reviewed up to this point in time: agreed with
Travel History
Have you had any contact with someone who has COVID-19?: No
Do you have any symptoms of coronavirus? Fever > 100 degrees, chills, cough, shortness of breath, sore throat, loss of taste or smell, muscle aches, or headache?: No
History of Present Illness
History of Present Illness:
Patient is a 68 year old female with history HTN, HLD, CHF, DM presenting to emergency department for evaluation of left wrist injury following fall earlier today. Patient reports a slip and fall in the shower earlier today coming down landing on
her left hand. She reports significant pain in left hand and left wrist with small laceration with small cut on volar aspect. She called EMS for transportation to emergency department. She is also endorsing some mild left hip pain. Patient has
not taken anything for pain. Patient has not had anything to eat since 9 PM last night.
Past History
Past History
ED Past Medical History: Asthma, CHF, HTN, Hypercholesterolemia, IDDM, NIDDM, Renal failure, Hypothyroidism, Psychiatric (Depression), Other (Left internal carotid artery 70% stenosis May 2022) and Other (History of sarcoidosis, diverticulitis,
pancreatitis, IBS, Migraine, TIA May 2022); Negative CAD
ED Past Surgical History: Cholecystectomy, Gynecological (Hysterectomy), Orthopedic (Carpal tunnel), Urological (Kidney tranplant 2013) and Other (Left arm fistula, hysterectomy and D&C, carpal tunnel surgery)
Social History
Tobacco: Former smoker
Alcohol: None
Drug: None and Former user
Personal:
Living: with family
Employment: Disabled
Family History
Family History: Hypertension
Phy Exam
Physical Exam
Physical Exam:
Vitals: Patient's vital signs are stable
General: Patient is in moderate distress due to pain, no acute distress
Skin: Warm and dry, no rashes or lesions; small approx 1cm bleeding wound on left medial volar wrist
Head: Normocephalic, atraumatic
Eyes: Sclera nonicteric. EOMs intact. No nystagmus.
Throat: Protecting airway
Neck: Normal ROM, no cervical spine tenderness, no meningismus
Cardiac: Regular rate and rhythm, no murmurs.
Pulm: Normal respiratory effort, no wheezes, rales, rhonchi heard on exam.
Abdomen: No abdominal tenderness.
Back: No midline spinal tenderness
Extremities: Significant edema, bruising, obvious deformity of left wrist with small open wound as described above and palmar displacement, distal pulses intact in left upper extremity; left hip without any palpable tenderness, no pain with
internal/external rotation, full range of motion intact, no obvious deformity of left hip, left lower extremity neurovascularly
Neuro: AAOx3. CN II-XII intact. No focal neurologic deficits.
Psychiatric: Normal affect.
Course
Orders/Labs/Results
Orders:
Orders
11/10/23 11:57
Wrist, Left 3 Views CR [CR Wrist - Left Min 3 Views] Urgent
Comment:
Reason For Exam: pain after fall
11/10/23 12:38
Hip, Left 2-3 Views [CR Hip - LT w/wo Pel 2-3 Vw*] Urgent
Comment:
Reason For Exam: fall, left hip pain
Include a pelvis x-ray?: Yes
11/10/23 13:16
Morphine Sulfate 2 mg IV NOW STA
11/10/23 13:40
Splints/Slings/Crut- Treatment ONCE
Location: Left
Type of Splint: Volar
11/10/23 14:15
CeFAZolin 1 GRAM [Ancef] 1 gram in 5 ml IV NOW
11/10/23 14:54
HYDROmorphone [Dilaudid] 0.5 mg IV NOW STA
11/10/23 15:17
Dexamethasone Sod Phosphate [Decadron] 20 mg .ROUTE .STK-MED ONE
Fentanyl Citrate/Pf [Sublimaze] 100 mcg .ROUTE .STK-MED ONE
Midazolam HCl [Versed] 2 mg .ROUTE .STK-MED ONE
Ondansetron Injectable [Zofran] 4 mg .ROUTE .STK-MED ONE
Propofol [Diprivan] 20 ml .ROUTE .STK-MED
Rocuronium [place] [Rocuronium] 50 mg .ROUTE .STK-MED ONE
11/10/23 15:25
Bupivacaine Pf 0.5% [Sensorcaine 0.5% Single Dose] 30 ml .ROUTE .STK-MED ONE
11/10/23 15:28
HYDROmorphone [Dilaudid] 0.25 mg IV PACU-Q5MPRN PRN
HYDROmorphone [Dilaudid] 0.5 mg IV PACU-Q5MPRN PRN
Meperidine [Demerol] 12.5 mg IV PACU-Q5MPRN PRN
Ondansetron Injectable [Zofran] 4 mg IV PACU-ONCEPRN PRN
Prochlorperazine [Compazine] 5 mg IV PACU-ONCEPRN PRN
Notify MD As Directed
Notify physician if: for SDS patients with known or suspected sleep obstructive sleep apnea, monitor in the
PACU.
Notify MD for any apneic/desaturation episodes
O2 Therapy [RESP] Urgent
Titrate/Wean O2 to maintain O2 sat greater than (%): 92
Special Instructions: -Provide supplemental oxygen to achieve O2 sat of 92% or greater.
-After 15 min, may wean O2 and discontinue if patient is able to maintain O2 sat of 92%
or greater during recovery period.
If patient is a discharge home, without oxygen therapy, notify anestheiologist if
unable to maintain O2 SAT of 92% or greater on room air for MD clearance.
11/10/23 15:30
Normosol (Mult Electrolytes) [Normosol-R] 1,000 ml IV PER PROTOCOL
11/10/23 15:52
CeFAZolin SODIUM [Ancef] 1,000 mg .ROUTE .STK-MED ONE
11/10/23 15:55
Fentanyl Citrate/Pf [Sublimaze] 100 mcg .ROUTE .STK-MED ONE
11/10/23 17:15
HYDROmorphone [Dilaudid] 0.5 mg .ROUTE .STK-MED ONE
11/10/23 17:24
HYDROmorphone [Dilaudid] 0.5 mg .ROUTE .STK-MED ONE
11/10/23 17:52
Acetaminophen 1000MG/100Ml [Ofirmev] 1,000 mg in 100 ml IV ONCE
Acetaminophen IV Indication:: Ileus/Delayed Bowel Func.
11/10/23 18:00
Acetaminophen [Tylenol] 650 mg PO SDS-Q4HPRN PRN
Ibuprofen [Motrin] 600 mg PO SDS-Q6HPRN PRN
Normosol (Mult Electrolytes) [Normosol-R] 1,000 ml IV SDS-ONCE
Ondansetron Injectable [Zofran] 4 mg IV SDS-ONCEPRN PRN
Oxycodone [Roxicodone] 10 mg PO SDS-Q4HPRN PRN
Oxycodone [Roxicodone] 5 mg PO SDS-Q4HPRN PRN
Abnormal Lab Results
11/10/23 11/10/23 11/10/23
15:04 17:08 19:10
POC Glucose 159 H mg/dl 143 H mg/dl 187 H mg/dl
(70-99) (70-99) (70-99)
Vital Signs
Initial and Last Documented VS:
Initial Vital Signs
Temp Pulse Resp BP Pulse Ox
98.7 F 61 20 171/91 98
11/10/23 11:55 11/10/23 11:55 11/10/23 11:55 11/10/23 11:55 11/10/23 11:55
Last Documented Vital Signs
Temp Pulse Resp BP Pulse Ox
97.9 F 73 16 168/71 94
11/10/23 18:25 11/10/23 19:18 11/10/23 19:18 11/10/23 19:18 11/10/23 19:18
MDM/Problems Addressed
Differential Diagnosis Includes:
Not limited to: Wrist sprain, wrist fracture, hip fracture
MDM/Problems Addressed:
Patient is a 68-year-old female with history as documented presenting for evaluation following slip and fall in shower earlier today. Complaining of significant pain in left wrist and mild pain in left hip. Patient did not hit her head or lose
conscious. Vital signs are stable. Exam as above. She does have a significant deformity of left wrist with small open area suggesting possible open fracture of left wrist. Distal pulses intact. No tenderness at left hip with internal or
external rotation. Active range of motion of left hip fully intact. Will check x-ray of left wrist. Given history/age�will check x-ray of left hip/pelvis. 2 mg morphine for pain.
Hip x-ray shows no signs of acute fracture or dislocation. X-ray of left wrist does show a comminuted impacted angulated fracture of the distal left radius with possible avulsed fragment of ulnar styloid.
Patient declines any hematoma block and reduction. Consider possible moderate sedation and reduction with Ortho follow-up. Discussed with orthopedic surgeon on-call. He has open time in OR this afternoon and will take patient to the OR for
washout/reduction this afternoon. Will give 1 g IV Ancef. Patient states this tolerated the past without difficulty. Per orthopedics�iodine, gauze over open area and volar splint until OR. Patient still with significant discomfort. Will give
0.5 mg Dilaudid. Volar splint placed. Patient stable and taken to the OR.
Chronic conditions affecting care:
Hypertension, hyperlipidemia, CHF, diabetes
Acute Exacerbation and/or Progression of Chronic Illness:
Acutely hypertensive
*Radiology
Radiology exam reviewed: preliminary read by ED provider and radiology read reviewed
*Pulse Oximetry
Patient hypoxic: no
*EKG
Interpreted by ED Provider?: NA
*Airframe Technician Interpretation
Rate: Airframe Technician- N/A
*Critical Care Note
Total Time (30-74mins, 75-104mins- exclusive of procedures): Not Applicable
Patient Management
Discussion with other providers: Compliance Clerk (Dr. John Jackson-orthopedic surgeon)
ED Attending Note
-
Portions of this chart may have been created with voice recognition software.� Occasional wrong word or��sound alike� substitutions may have occurred due to the inherent limitations of voice recognition software.
Discharge Plan
Departure
Patient Disposition: Admit
Date of Disposition: 11/10/23
Time of Disposition: 14:26
Admit to: OR
Presentation/result/management discussed w/ accepting MD/DO: Dr. Jackson
Discharge Problem:
Open fracture of left distal radius
Interventions
Interventions:
*Risk Screen - Suicide Last Done: 11/10/23 12:50
*General Assessment Last Done: 11/10/23 12:55
*Neglect/Abuse Screening Last Done: 11/10/23 12:50
ED- Fall Risk Assessment Last Done: 11/10/23 12:55
*ED COVID-19 Vaccine History Last Done: 11/10/23 11:55
*Nursing Disposition Last Done: 11/10/23 15:21
ED-Musculoskeletal Assessment Last Done: 11/10/23 12:51
ED- Neurological Assessment Last Done: 11/10/23 12:51
ED-Skin Assessment Last Done: 11/10/23 12:51
Discharge Date and Time
Discharge Date/Time: 11/10/23 15:20
[2023-11-10] MEDS: MORPHINE SULFATE 2 MG IV (14:02)
[2023-11-10] MEDS: ANCEF 5 IV (14:28)
[2023-11-10] MEDS: DILAUDID 0.5 MG IV ×3 (15:00→17:25)
[2023-11-10 15:05] LABS: Glucose - Point of Care 159 mg/dl (70-99)
[2023-11-10 17:10] LABS: Glucose - Point of Care 143 mg/dl (70-99)
[2023-11-10] MEDS: OFIRMEV 100 IV (18:05)
[2023-11-10 19:11] LABS: Glucose - Point of Care 187 mg/dl (70-99)
== END 2023-11-10 19:45 | disposition home or self-care (01) ==
LOC: SDS 15:22
PROVIDERS: ATTENDING PHYSICIAN Orthopaedic Surgery; EMERGENCY PHYSICIAN Emergency Medicine; FAMILY PHYSICIAN Family Medicine
PROC: 0PSJ04Z Reposition Left Radius with Internal Fixation Device, Open Approach (ICD-10-PCS; 2023-11-10)
DX: S52.572B Other intraarticular fracture of lower end of left radius, initial encounter for open fracture type I or II (principal); W18.2XXA Fall in (into) shower or empty bathtub, initial encounter; J45.909 Unspecified asthma, uncomplicated; E11.9 Type 2 diabetes mellitus without complications
CPT/HCPCS: 25609; 73110; 73502; 82962; 96374; 96375; 99285; C1713

== ENCOUNTER 2024-02-16 05:42 | Inpatient (IN) | payer OTHER, MEDICARE, SELFPAY ==
[2024-02-16] VITALS (15 sets, daily range): BP systolic 114–191; BP diastolic 37–131; PULSE 79–80; BMI 37.2; BMI 36.9
--- NOTE | 2024-02-16 03:00 | ED.GENMED ---
History of Present Illness
General
Chief Complaint: Weakness
Source: patient and ambulance crew
Exam Limitations: none
Time Seen by Provider: 02/16/24 02:57
Nursing documentation reviewed up to this point in time: agreed with
History of Present Illness
History of Present Illness:
69-year-old female presents emergency department due to a fall. She got up and then fell to the ground. She complains of urinary frequency and incontinence. She denies any chest pain.
Past History
Past History
ED Past Medical History: Asthma, CHF, HTN, Hypercholesterolemia, IDDM, NIDDM, Renal failure, Hypothyroidism, Psychiatric (Depression), Other (Left internal carotid artery 70% stenosis May 2022) and Other (History of sarcoidosis, diverticulitis,
pancreatitis, IBS, Migraine, TIA May 2022); Negative CAD
ED Past Surgical History: Cholecystectomy, Gynecological (Hysterectomy), Orthopedic (Carpal tunnel), Urological (Kidney tranplant 2013) and Other (Left arm fistula, hysterectomy and D&C, carpal tunnel surgery)
Social History
Tobacco: Former smoker
Alcohol: None
Drug: None and Former user
Personal:
Living: with family
Employment: Disabled
Family History
Family History: Hypertension
Review of Systems
Review of Systems
Allergies reviewed?: Yes
All Other Systems: Not applicable
Constitutional: Reports no symptoms
EENT: Reports no symptoms
Respiratory: Reports no symptoms
Cardiac: Reports no symptoms
ABD/GI: Reports no symptoms
: Reports frequency and incontinence
Musculoskeletal: Reports no symptoms
Skin: Reports no symptoms
Neurological: Reports other (confusion)
Endocrine: Reports polyuria
Hematologic/Lymphatic: Reports no symptoms
Psychiatric: Reports no symptoms
Phy Exam
Physical Exam
Physical Exam:
Physical Exam
General: mild distress
Neck: supple. no meningeal signs. normal posterior pharynx
Heart: s1/s2 regular rate and rhythm, no murmur. equal radial
pulses.
HEENT: Pupils equal round reactive to light, EOMI
Lungs: no acute respiratory distress. clear bilaterally
Abdomen: normal bowel sounds. not tender. no CVAT
Neuro: alert and oriented. no focal neurological deficits cranial nerves II through XII intact
Skin: no rash
Psychiatric: well kept. interactive and cooperative
Extremities: no edema. no calf tenderness. negative homans. good distal pulses
Course
Orders/Labs/Results
Orders:
Orders
02/16/24 02:57
Straight cath- Treatment ONCE
02/16/24 02:59
CT Head W/o Iv Contrast Urgent
Comment:
Reason For Exam: confusion
02/16/24 03:10
B-Hydroxybutyrate Urgent
Complete Blood Count/With Diff Urgent
Comprehensive Metabolic Panel Urgent
02/16/24 03:47
Insulin Human Regular [Novolin R] 10 units IV NOW STA
02/16/24 03:53
0.9% Sodium Chloride 1000 ml [Nss] 1,000 ml IV BOLUS
02/16/24 04:25
Urinalysis Reflex To Culture Urgent
Date Specimen was Collected: 02/16/24
Time Specimen was Collected: 04:23
Urine Microscopic Reflex Cult Urgent
Venous Blood Gas Urgent
%Oxygen/Room Air: 95/RA
02/16/24 04:38
Electrocardiogram (*1) Urgent
Reason for Study: Other
Other Reason for Exam: hyperkalemia
EKG- Treatment ONCE
02/16/24 04:41
Reg Insulin 100 Units/100 ml [Novolin R Insulin Infusion] 100 units in 100 ml IV NOW
Abnormal Lab Results
02/16/24 02/16/24
03:10 04:25
WBC 20.0 H 10^3/uL
(4.8-10.8)
Hgb 11.9 L g/dL
(12.0-16.0)
Hct 34.6 L %
(37.0-47.0)
MCV 79.7 L fL
(81.0-99.0)
MPV 11.0 H fL
(7.4-10.4)
Abs Immat Gran (auto) 0.2 H 10^3/uL
(0-0.05)
Absolute Neuts (auto) 17.0 H 10^3/uL
(1.4-6.5)
Absolute Lymphs (auto) 0.8 L 10^3/uL
(1.2-3.4)
Absolute Monos (auto) 1.9 H 10^3/uL
(0.1-0.6)
Immature Gran % 0.7 H %
(0-0.5)
Neutrophils % 85.0 H %
(42.2-75.2)
Lymphocytes % 3.9 L %
(20.5-51.1)
VBG HCO3 21.6 L mmol/L
(22-27)
Sodium 123 L mmol/L
(135-145)
Potassium 5.7 H mmol/L
(3.5-5.1)
Chloride 90 L mmol/L
(98-107)
Carbon Dioxide 20 L mmol/L
(22-30)
BUN 31 H mg/dl
(7-17)
Creatinine 1.2 H mg/dL
(0.6-1.0)
Glucose 609 H* mg/dl
(70-99)
Calcium 10.4 H mg/dl
(8.4-10.2)
Total Bilirubin 1.5 H mg/dl
(0.2-1.3)
Urine Ketones 2+ A
(Negative)
Ur Occult Blood Reflex Trace A
(Negative)
Leukocyte Esterase Rfl Trace A
(Negative)
Urine Glucose 3+ A
(Negative)
B-Hydroxybutyrate 1.71 H mmol/L
(0.02-0.27)
02/16/24 03:10
02/16/24 03:10
Vital Signs
Initial and Last Documented VS:
Initial Vital Signs
Pulse Ox
98
02/16/24 02:57
Last Documented Vital Signs
Temp Pulse Resp BP Pulse Ox
98.3 F 92 15 137/45 95
02/16/24 02:59 02/16/24 03:30 02/16/24 03:30 02/16/24 03:28 02/16/24 03:30
MDM/Problems Addressed
Differential Diagnosis Includes:
DKA, CVA, intracranial hemorrhage
MDM/Problems Addressed:
69-year-old female with hyperglycemia, possible mild DKA., No signs of intracranial hemorrhage. Insulin drip initiated. IV fluids given. Admit to hospitalist.
Chronic conditions affecting care: DM and HTN
Acute Exacerbation and/or Progression of Chronic Illness: DM and HTN
*Radiology
Radiology exam reviewed: radiology read reviewed (CT head no acute findings)
*Pulse Oximetry
Patient hypoxic: no
*EKG
Interpreted by ED Provider?: Yes
EKG Intrepretation Date: 02/16/24
EKG Intrepretation Time: 04:43
Interpretation: abnormal
Comparison EKG: changes noted
Heart Rate: 86
Rate: normal
Rhythm: sinus
[place]: normal axis
Interval: normal interval
QRS Pattern: left vent hypertrophy
Ischemia: non-specific ST changes
*Clinical Documentation Improvement Specialist Interpretation
Rate: normal
Interpretation: normal
Heart Rate: 92
Rhythm: sinus
*Critical Care Note
Total Time (30-74mins, 75-104mins- exclusive of procedures): 30
comment:
Critical care statement: A total of 30 minutes of critical care time was provided for this patient. This includes management of unstable vital signs, evaluation of the patient at bedside, reviewing the patient's pertinent medical records, discussion
with consultants, review of old EKGs and review of pertinent medical records. This time with separate from time utilized to perform the aforementioned documented procedures
Data Reviewed
Review of Other/Old Records Reveals: Labs (Prior potassium 5.1 on 10/29/2023)
Source: records
Patient Management
Social determinants of health affecting care: Living situation
Discussion with other providers: Hospitalist
Escalation/DeEscalation of care consider admission/obs:
Admit indicated
ED Attending Note
-
Portions of this chart may have been created with voice recognition software.� Occasional wrong word or��sound alike� substitutions may have occurred due to the inherent limitations of voice recognition software.
Discharge Plan
Departure
Patient Disposition: Admit
Date of Disposition: 02/16/24
Time of Disposition: 03:49
Admit to: IMU
Presentation/result/management discussed w/ accepting MD/DO: Hospitalist
Patient with high blood pressure during this ER visit?: Yes
Condition: Fair
Discharge Problem:
Acute hyperglycemia, Acute hyperkalemia
Prescriptions:
No Action
pantoprazole 40 MG tablet,delayed release (DR/EC)
40 mg PO DAILY
tacrolimus 1 MG capsule
4 mg PO BID
escitalopram oxalate 20 MG tablet
20 mg PO DAILY
mycophenolate sodium 180 MG tablet,delayed release (DR/EC)
360 mg PO BID
acetaminophen [Tylenol Extra Strength] 500 MG tablet
1,000 mg PO BIDPRN PRN (Reason: mild pain)
cyanocobalamin (vitamin B-12) 1,000 MCG tablet
1,000 mcg PO HS
ezetimibe 10 MG tablet
10 mg PO DAILY
losartan 50 mg Tablet
50 mg PO BID Qty: 60 0RF
carvedilol 6.25 mg Tablet
6.25 mg PO BID
aspirin 81 mg Tablet,Delayed Release (Dr/Ec)
81 mg PO HS
albuterol sulfate 90 mcg/actuation Hfa Aerosol Inhaler
2 puff INHALATION R Q4HPRN PRN (Reason: sob)
budesonide-formoterol 160-4.5 mcg/actuation HFA aerosol inhaler
1 puff INHALATION R BID
omega 0-xul-ezz-fish oil [Fish Oil] 1,000 mg (120 mg-180 mg) Capsule
1 cap PO BID
atorvastatin 80 mg tablet
80 mg PO HS
hydralazine 50 mg tablet
50 mg PO BID
insulin lispro [Humalog KwikPen Insulin] 100 unit/mL Insulin Pen
16 unit SC AC Qty: 0 0RF
insulin glargine U-300 conc [Toujeo Max U-300 SoloStar] 300 unit/mL (3 mL) Insulin Pen
37 unit SC BID Qty: 0 0RF
Slow-Mag 71.5 mg tablet,delayed release (DR/EC)
71.5 mg PO DAILY Qty: 30 0RF
loperamide 2 mg Capsule
2 mg PO DAILY Qty: 30 0RF
Interventions
Interventions:
*Risk Screen - Suicide Last Done: 02/16/24 02:59
*General Assessment Last Done: 02/16/24 02:59
*Neglect/Abuse Screening Last Done: 02/16/24 02:59
ED- Fall Risk Assessment Last Done: 02/16/24 02:57
*ED COVID-19 Vaccine History Last Done: 02/16/24 02:57
ED- Cardiac Assessment Last Done: 02/16/24 02:57
ED- Neurological Assessment Last Done: 02/16/24 02:57
ED- Pulmonary Assessment Last Done: 02/16/24 02:57
Discharge Date and Time
Print Language: CITIZEN OF [place]
[2024-02-16 03:22] LABS: % Basophils 0.4 % (0-2); % Eosinophils 0.7 % (0-6); % Immature Granulocytes 0.7 % (0-0.5); % Lymphocytes 3.9 % (20.5-51.1); % Monocytes 9.3 % (1.7-9.3); Absolute Basophils 0.1 10^3/uL (0-0.2); Absolute Eosinophils 0.1 10^3/uL (0-0.7); Absolute Immature Granulocytes 0.2 10^3/uL (0-0.05); Absolute Lymphocytes 0.8 10^3/uL (1.2-3.4); Absolute Monocytes 1.9 10^3/uL (0.1-0.6); Hematocrit 34.6 % (37.0-47.0); Hemoglobin 11.9 g/dL (12.0-16.0); Mean Corp Hgb Conc. 34.4 g/dL (33.0-37.0); Mean Corpuscular Hgb 27.4 pg (27.0-31.0); Mean Corpuscular Volume 79.7 fL (81.0-99.0); Nucleated Red Blood Cells % 0 %; Platelet Count 332 10^3/uL (130-400); Red Blood Cell Count 4.34 10^6/uL (4.20-5.40); Red Cell Dist. Width 13.2 % (11.5-14.5)
[2024-02-16 03:35] LABS: ALT (SGPT) 14 U/L (0-35); AST (SGOT) 16 U/L (14-36); Albumin 3.8 g/dl (3.5-5.0); Alkaline Phosphatase 106 U/L (38-126); Blood Urea Nitrogen 31 mg/dl (7-17); Calcium 10.4 mg/dl (8.4-10.2); Carbon Dioxide 20 mmol/L (22-30); Chloride 90 mmol/L (98-107); Estimated Creatinine Clearance 52 ml/min; Glucose 609 mg/dl (70-99); Potassium 5.7 mmol/L (3.5-5.1); Sodium 123 mmol/L (135-145); Total Bilirubin 1.5 mg/dl (0.2-1.3); Total Protein 6.8 g/dl (6.3-8.2)
[2024-02-16 03:41] LABS: B-Hydroxybutyrate 1.71 mmol/L (0.02-0.27)
[2024-02-16] MEDS: NSS 1000 IV ×4 (04:33→20:36)
[2024-02-16 04:35] LABS: Venous Blood Gas B.E. -4.1 mmol/L (-4 to +4); Venous Blood Gas HCO3 21.6 mmol/L (22-27); Venous Blood Gas O2 Sat % 81.7 %; Venous Blood Gas pCO2 41 mmHg (35-48); Venous Blood Gas pH 7.33 (7.32-7.43); Venous Blood Gas pO2 46 mmHg (30-50)
[2024-02-16] MEDS: NOVOLIN R 10 UNITS IV (04:36)
[2024-02-16 04:38] LABS: Urine Albumin Negative (Neg - Trace); Urine Bilirubin Negative (Negative); Urine Character Clear (Clear); Urine Color Straw; Urine Glucose 3+ (Negative); Urine Ketone 2+ (Negative); Urine Leukocyte Trace (Negative); Urine Nitrite Negative (Negative); Urine Occult Blood Trace (Negative); Urine Specific Gravity 1.015 (<1.030); Urine Urobilinogen Negative (Neg - 1+)
--- NOTE | 2024-02-16 05:05 | HPS.HSE ---
Addendum entered and electronically signed by Marky Leung DO 02/16/24 05:24:
A/P:
Chronic Diarrhea
- Somewhat improved. Presumably secondary to CellCept.
- Continue loperamide.
- Follow / quantify stools during hospital stay.
- IVF / volume replacement as noted above.
Original Note:
Family Physician
-
Family Physician: Lizize Pearce
Chief Complaint
-
Fall at Home, Weakness
History of Present Illness
Patient is a 69y F with PMH significant for insulin-dependent DM, CKD s/p renal transplant and ASCVD / carotid disease who presents to ED complaining of fall at home. Patient states that she woke to use the bathroom around 3 AM. She was trying
to lie back down on her bed when she lost her balance and fell. She states that she saw 'black spots on the ceiling' prior to falling. She denies feeling lightheaded or dizzy. She denies any chest pain or dyspnea. Patient called to her
for help and was brought to the ED for further evaluation. She denies any significant pain at this time.
Patient denies striking her head during the fall. She denies any LOC.
Patient states that this is her second fall in the past 3 months.
Patient admits that she has been feeling poorly for several weeks. She complains of generalized weakness, poor appetite and variable diarrhea.
She notes that her sugars have been very poorly controlled at home - typically in the 400s and never below 200.
She has loose stools between 0-5 BM per day - despite loperamide.
Patient complains of recent cough and sore throat.
She is tearful at times in the ED.
Patient was last admitted here in October for diarrhea that was felt to be secondary to her antirejection medications.
She feels that her symptoms have improved somewhat with loperamide.
Medical History
Past Medical History
Past Medical History: Reports Other
Additional Past Medical History:
Diabetes Mellitus, Insulin Dependent
Essential Hypertension
Hyperlipidemia
Renal Transplant
Sarcoidosis
Asthma
Depression
GERD
Irritable Bowel Syndrome
Left Carotid Artery Stenosis s/p Endarterectomy
Past Surgical History: Reports Other
Additional Past Surgical History:
Kidney Transplant
Left Endarterectomy
Hysterectomy
Bilateral Carpal Tunnel
Social History
Tobacco: Former Smoker
Alcohol: Occasional
Family History
Family History: Not pertinent
Allergies / Home Medications
Allergies reflects when Allergies were last updated in [facility].
Home Medications with original date entered in [facility]
Allergy/Medication List:
Allergies
Allergy/AdvReac Type Severity Reaction Status Date / Time
adhesive tape [Adhesive Tape] Allergy Rash Verified 11/10/23 11:56
Cephalosporins Allergy resp.failure Verified 11/10/23 11:56
(never had
cephalospoirin)
exenatide [From [place]] Allergy pancreatiti Verified 11/10/23 11:56
s
penicillin V Allergy resp.failure Verified 11/10/23 11:56
x2
()
pollen extracts Allergy Hayfever Verified 11/10/23 11:56
sulfamethoxazole Allergy low blood Verified 11/10/23 11:56
sugar
tree and shrub pollen Allergy Unknown Verified 11/10/23 11:56
trimethoprim Allergy low blood Verified 11/10/23 11:56
sugar
SOME BERRIES Allergy Unknown Uncoded 11/10/23 11:56
Home Medications
escitalopram oxalate 20 mg tablet 20 mg PO DAILY Mental Health/Anxiety 08/05/16
mycophenolate sodium 180 mg tablet,delayed release 360 mg PO BID Transplant 08/05/16
pantoprazole 40 mg tablet,delayed release 40 mg PO DAILY Gastrointestinal issue 08/05/16
tacrolimus 1 mg capsule, immediate-release 4 mg PO BID Transplant 08/05/16
acetaminophen 500 mg tablet (Tylenol Extra Strength) 1,000 mg PO BIDPRN PRN mild pain 09/05/19
cyanocobalamin (vitamin B-12) 1,000 mcg tablet 1,000 mcg PO HS Supplement 09/01/21
ezetimibe 10 mg tablet 10 mg PO DAILY High cholesterol 09/01/21
losartan 50 mg tablet 50 mg PO BID Blood pressure #60 tabs 06/10/22
albuterol sulfate 90 mcg/actuation aerosol inhaler 2 puff inhalation R Q4HPRN PRN sob 10/27/23
aspirin 81 mg tablet,delayed release 81 mg PO HS Blood Clot Prevention/Tx 10/27/23
atorvastatin 80 mg tablet 80 mg PO HS High cholesterol 10/27/23
budesonide-formoterol HFA 160 mcg-4.5 mcg/actuation aerosol inhaler 1 puff inhalation R BID Lung/Breathing Issues 10/27/23
carvedilol 6.25 mg tablet 6.25 mg PO BID Heart Disease/Condition 10/27/23
hydralazine 50 mg tablet 50 mg PO BID Blood pressure 10/27/23
omega 0-bbp-yre-fish oil 1,000 mg (120 mg-180 mg) capsule (Fish Oil) 1 cap PO BID Supplement 10/27/23
insulin glargine U-300 conc 300 unit/mL (3 mL) subcutaneous pen (Toujeo Max U-300 SoloStar) 37 unit (0.1233 mL) SC BID Diabetes #0 mL 10/29/23
insulin lispro 100 unit/mL subcutaneous pen (Humalog KwikPen (U-100) Insulin) 16 unit (0.16 mL) SC AC Diabetes #0 mL 10/29/23
magnesium chloride 71.5 mg (magnesium chloride) tablet,delayed release (Slow-Mag) 71.5 mg PO DAILY Electrolyte Repletion #30 tabs 10/29/23
loperamide 2 mg capsule 2 mg PO DAILY diarrhea #30 caps 10/31/23
Review of Systems
-
History Source: Patient
A 12 point ROS was completed and negative except as noted: Yes
Constitutional: Reports Fatigue; Denies Fever or Chills
EENT: Reports Sore Throat
Respiratory: Reports Cough; Denies Hemoptysis or Trouble Breathing
Cardiac: Reports Chest Pain; Denies Diaphoresis, Palpitations or Syncope
Abdomen/GI: Reports Diarrhea and Anorexia; Denies Abdominal Pain, Nausea, Vomiting, Bloody Stools or Black Stools
: Reports Frequency and Incontinence; Denies Dysuria
Musculoskeletal: Denies Joint Pain or Edema
Neurological: Reports Weakness; Denies Dizzy or Headache
Psych: Reports Depression and Anxiety
Physical Exam
Vital Signs
Vital Signs
Temp Pulse Resp BP Pulse Ox
98.3 F 89 20 140/49 96
02/16/24 02:59 02/16/24 04:30 02/16/24 04:30 02/16/24 04:00 02/16/24 04:30
Physical Exam
General: Other (69y F in no acute distress.)
HEENT: Other (Thick neck, dry MM. )
Respiratory: Other (Decreased at bases - otherwise clear.)
Cardiac: S1/S2, Regular Rhythm and Murmur (II/ DON)
GI: Non Tender, Non Distended, Normal Bowel Sounds and Other (Obese.)
Musculoskeletal: No Clubbing, No Cyanosis and No Edema
Neuro: AO x 3 and Nonfocal/grossly intact
Psych: Anxious and Depressed
Laboratory Results
-
02/16/24 03:10
02/16/24 03:10
Laboratory Results
Total Bilirubin 1.5 mg/dl (0.2-1.3) H 02/16/24 03:10
AST 16 U/L (14-36) 02/16/24 03:10
ALT 14 U/L (0-35) 02/16/24 03:10
Alkaline Phosphatase 106 U/L (38-126) 02/16/24 03:10
Impression/Plan
-
A/P: Patient is a 69y F with PMH significant for DM, CKD s/p renal transplant and chronic diarrhea who presents to ED for evaluation s/p fall at home early this AM.
DM with Hyperglycemia
Hyperkalemia
Hypercalcemia
VIANEY on CKD II
Pseudohyponatremia
- Admit to IMU for further evaluation and treatment.
- Patient is not acidemic and does not have an elevated anion gap.
- Labs and exam would suggest significant volume depletion.
- IVF replacement with NSS.
- Follow glucose closely.
- Give AM basal dose now and then continue with SSI.
- Consider insulin gtt for improved control if glucose does not respond to fluids / subcut insulin.
- Hold ARB acutely.
- Follow for improvement in labs / lytes with volume / insulin.
- Follow for clinical improvement coincident with correction of metabolic disturbance(s).
Fall at Home
- No evident injury.
- CT head in the ED was unremarkable.
- Patient denies any prodrome to the fall.
- Monitor on telemetry for now.
- Correct metabolic issues as noted above.
- Follow for any new symptoms / focal complaints.
- PT / OT evaluations.
Leukocytosis
- Likely stress response / hypovolemia.
- Afebrile and non-toxic.
- Observe off of abx and follow for changes.
Renal Transplant Status
- VIANEY as noted above.
- Check tacro levels.
- IVFs / volume support as noted above and follow for return to baseline SCr (0.7).
- Nephrology evaluation.
ASCVD / Carotid Disease
- Stable. Continue ASA / statin.
Asthma without Exacerbation
- Continue inhaler regimen / albuterol PRN.
Anxiety / Depression
- Patient tearful / depressed in the ED.
- Continue Lexapro. Consider med / dose adjustment.
Obesity due to excess calories
- Affects all aspects of care.
- Encourage healthy diet and increased activity with goal of weight loss.
DVT Prophylaxis: Lovenox
Code Status: Full
[2024-02-16 05:10] LABS: Urine Bacteria Few (Negative); Urine Red Blood Cell 0-2 /HPF (0-2)
[2024-02-16] MEDS: LANTUS 0.3 UNITS SC (06:22)
[2024-02-16 06:27] LABS: Glucose - Point of Care 415 mg/dl (70-99)
--- NOTE | 2024-02-16 07:46 | PHANOTE ---
med rec note- patient unable to communicate with out what she takes at home, she can not find her words and kept saying her on his way. will use physician and pharmacy at this time and will call spouse
[2024-02-16] MEDS: SYMBICORT 160/4.5 MCG INHALER 1 PUFF INH ×2 (08:08→19:35)
[2024-02-16 08:22] LABS: Glucose - Point of Care 414 mg/dl (70-99)
--- NOTE | 2024-02-16 08:25 | W.CON.NEPH ---
Consultation
-
Date/Time Consultation Requested: 02/16/2024 8:15 AM
Date/Time Consultation Performed: 02/16/2024 815 AM
Requesting Provider: Dr. Nielsen
Performing Provider: Dr. Beaver
Reason for Consultation: VIANEY renal transplant
Medical History
-
Chief Complaint: VIANEY renal transplant hyponatremia hyperkalemia
History of Present Illness:
The patient is a 69-year-old female with a past medical history of kidney transplant chronically maintained on tacrolimus and mycophenolate, diabetes maintained on insulin therapy, and hypertension maintained on losartan hydralazine Aldactone and
carvedilol. She presented to the emergency room last evening after sustaining a fall at home. The patient has been feeling poorly for several weeks noting generalized weakness poor appetite and intermittent diarrhea. Her blood sugars have been
poorly controlled and were 609 on presentation she also has complaints including cough and sore throat. Nephrology was consulted in regards to her renal transplant hyperkalemia hyponatremia and acute kidney injury.
Past Medical History
s/p Left CEA 06/01/22
Chronic HFpEF
CKD s/p donor transplant at [facility] 09/2013 with excellent graft function
History sarcoidosis
History controlled hypertension
DM 2
Hyperlipidemia
Asthma
TIA/CVA
Chronic back pain
Anxiety
Social History
Tobacco: Non-Smoker
Alcohol: Occasional
Family History
no CKD
Allergies / Home Medications
Allergy/AdvReac Type Severity Reaction Status Date / Time
adhesive tape [Adhesive Tape] Allergy Rash Verified 11/10/23 11:56
Cephalosporins Allergy resp.failure Verified 11/10/23 11:56
(never had
cephalospoirin)
exenatide [From [place]] Allergy pancreatiti Verified 11/10/23 11:56
s
penicillin V Allergy resp.failure Verified 11/10/23 11:56
x2
()
pollen extracts Allergy Hayfever Verified 11/10/23 11:56
sulfamethoxazole Allergy low blood Verified 11/10/23 11:56
sugar
tree and shrub pollen Allergy Unknown Verified 11/10/23 11:56
trimethoprim Allergy low blood Verified 11/10/23 11:56
sugar
SOME BERRIES Allergy Unknown Uncoded 11/10/23 11:56
�Medication �Instructions �Recorded �Confirmed �Type
escitalopram oxalate 20 mg tablet 20 mg PO DAILY Mental 08/05/16 02/16/24 History
Health/Anxiety
mycophenolate sodium 180 mg 360 mg PO BID Transplant 08/05/16 02/16/24 History
tablet,delayed release
pantoprazole 40 mg tablet,delayed 40 mg PO DAILY Gastrointestinal 08/05/16 02/16/24 History
release issue
tacrolimus 1 mg capsule, 4 mg PO BID Transplant 08/05/16 02/16/24 History
immediate-release
acetaminophen 500 mg tablet 1,000 mg PO BIDPRN PRN mild pain 09/05/19 02/16/24 History
(Tylenol Extra Strength)
cyanocobalamin (vitamin B-12) 1,000 mcg PO HS Supplement 09/01/21 02/16/24 History
1,000 mcg tablet
ezetimibe 10 mg tablet 10 mg PO DAILY High cholesterol 09/01/21 02/16/24 History
losartan 50 mg tablet 50 mg PO BID Blood pressure #60 06/10/22 02/16/24 Rx
tabs
albuterol sulfate 90 mcg/actuation 2 puff inhalation R Q4HPRN PRN sob 10/27/23 02/16/24 History
aerosol inhaler
aspirin 81 mg tablet,delayed 81 mg PO HS Blood Clot 10/27/23 02/16/24 History
release Prevention/Tx
atorvastatin 80 mg tablet 80 mg PO HS High cholesterol 10/27/23 02/16/24 History
budesonide-formoterol HFA 160 1 puff inhalation R BID 10/27/23 02/16/24 History
mcg-4.5 mcg/actuation aerosol Lung/Breathing Issues
inhaler
carvedilol 6.25 mg tablet 6.25 mg PO BID Heart 10/27/23 02/16/24 History
Disease/Condition
hydralazine 50 mg tablet 50 mg PO BID Blood pressure 10/27/23 02/16/24 History
magnesium chloride 71.5 mg 71.5 mg PO DAILY Electrolyte 10/29/23 02/16/24 Rx
(magnesium chloride) Repletion #30 tabs
tablet,delayed release (Slow-Mag)
cyclobenzaprine 10 mg tablet 10 mg PO DAILYPRN PRN spasms 02/16/24 02/16/24 History
insulin degludec 100 unit/mL (3 36 unit SC BID 02/16/24 02/16/24 History
mL) subcutaneous pen (Tresiba
FlexTouch U-100 insulin)
insulin lispro 100 unit/mL 24 unit SC AC Diabetes 02/16/24 02/16/24 History
subcutaneous pen (Humalog KwikPen
(U-100) Insulin)
loperamide 2 mg capsule 2 mg PO QIDPRN PRN diarrhea 02/16/24 02/16/24 History
spironolactone 25 mg tablet 25 mg PO DAILY 02/16/24 02/16/24 History
Review of Systems
-
History Source: Patient
All other systems: Negative unless noted
Constitutional: Fatigue and Other (malaise)
EENT: Sore Throat
Respiratory: Cough
Cardiac: No Symptoms
Abdomen/GI: Vomiting and Diarrhea
: Frequency
Skin: No Symptoms
Neurological: No Symptoms
Endocrine: No Symptoms
Hematologic/Lymphatic: No Symptoms
Physical Exam
Vital Signs
Vital Signs
Temp Pulse Resp BP Pulse Ox
98.4 F 80 16 149/48 94
02/16/24 08:00 02/16/24 08:00 02/16/24 08:00 02/16/24 08:00 02/16/24 08:00
Lab Results
02/16/24 03:10
WBC 20.0 10^3/uL (4.8-10.8) H 02/16/24 03:10
RBC 4.34 10^6/uL (4.20-5.40) 02/16/24 03:10
Hgb 11.9 g/dL (12.0-16.0) L 02/16/24 03:10
Hct 34.6 % (37.0-47.0) L 02/16/24 03:10
Plt Count 332 10^3/uL (130-400) 02/16/24 03:10
eGFR 49.00 02/16/24 03:10
Albumin 3.8 g/dl (3.5-5.0) 02/16/24 03:10
Physical Exam
General: AOx3, Nontoxic , NAD, obese
HEENT: PERRL, EOMI, Anicteric, Conjunctivae Clear, Ear/Nose Intact, Hearing Normal, Oropharynx Clear/dry, Dentition Intact, Facial Symmetry, Neck Supple, Neck: Trachea Midline, No JVD and No Thyromegaly, no Bruits
Respiratory: Clear to auscultation bilaterally with normal lung exersion
Cardiac: S1/S2 and Regular Rate/Rhythm
Breast: Deferred by me
Abdomen: Soft, Nontender, Nondistended, Normal Bowel Sounds and No Hepatosplenomegaly
Rectal: Deferred by Provider
Genito-urinary: No Costovertebral Tenderness
Extremities: No Clubbing, No Cyanosis and No Edema
Skin: No Rash or open lesions
Neuro: Nonfocal/Grossly Intact, CN II-XII (Intact) and Strength (Musculoskeletal exam 5 out of 5 both upper and lower extremities)
Hematologic/Lymphatic: No Cervical Lymphadenopathy, No Submandibular Lymphadenopathy and No Supraclavicular Lymphadenopathy
Psych: Mood/afflect pleasant, Insight/judgement good and Appropriate
Vascular: plus 2 pedal and radial pulses, LUE AVF down
Data Reviewed
-
CT Scan: Report Reviewed by me (Head CT reviewed no acute intracranial process noted mild small vessel ischemic disease)
Medical Tests (Nuc Med, Echo etc): Other (EKG report personally reviewed normal sinus rhythm 86 beats per minute)
Labs: Labs Reviewed by me (BMP CBC reviewed)
Old Records: Reviewed (Reviewed previous nephrology consult from date 06/24 EMR)
Assessment/Plan
-
Impression
Hyperglycemia
Falls
Diarrhea
AG metabolic acidosis (21) with corrected Sodium
Renal transplant with baseline creatinine of 0.7 (2013)
Acute kidney and
Pseudo hyponatremia
Hyperkalemia
Hypertension
Diabetes
PVD
History of sarcoidosis
Hypercalcemia
ASCVD
Asthma
Anxiety and depression
Plan:
VIANEY:
-Likely due to volume depletion in setting of hyperglycemia/DKA
-Agree with IV fluid resuscitation and treatment of hyperglycemia (150cc/hr NSS )
-Holding ARB
-Obtain tacrolimus trough level
-check bladder scan given incontinence
Hyperkalemia
-Likely a function of hyperglycemia
-Correction of hyperglycemia will improve potassium
-Withholding ARB
Hyponatremia:
-Pseudohyponatremia serum glucose corrected to 131 with blood glucose of 609
Renal Transplant:
-Maintain mycophenolate and tacrolimus
[2024-02-16 09:41] LABS: COVID-19 Antigen Negative (Negative)
[2024-02-16 09:53] LABS: Blood Urea Nitrogen 31 mg/dl (7-17); Calcium 9.6 mg/dl (8.4-10.2); Carbon Dioxide 19 mmol/L (22-30); Chloride 97 mmol/L (98-107); Estimated Creatinine Clearance 62 ml/min; Glucose 429 mg/dl (70-99); Potassium 5.6 mmol/L (3.5-5.1); Sodium 127 mmol/L (135-145); eGFR > 60.00
[2024-02-16 10:13] LABS: Troponin I 0.269 ng/ml
--- NOTE | 2024-02-16 10:14 | PN.DE.MGMTRT ---
Insulin Management
- -
02/16/2024 Diabetes Management Consult
Patient admitted 02/15 s/p fall at home. PMH CHF, HTN, HCL, asthma, diabetes, renal failure with transplant, hypothyroid, depression, carotid artery stenosis, migraine, sarcoidosis, diverticulitis, pancreatitis, IBS. Prior to admission patient was
taking tresiba 36 units BID with humalog 24 units AC. Last A1C 12.8% October 2023, cr 1, eGFR >60, BUN 31.
Patient is awake, alert and oriented but drowsy. Able to discuss diabetes management. States she was diagnosed at age 22, did take oral diabetes meds for about 5 years then switched to insulin. She currently sees Dr. Sallie Duffy endocrine
for diabetes management.
Glucose on admission 609. She did receive 30 units lantus at 6AM this morning; glucose remained > 400. AM labs indicate GAP of 18.
Dr. Nielsen to start insulin infusion. Will follow until GAP closed.
Diabetes History
- -
Type of Diabetes: 2 requiring insulin
Pre-Admission Diabetes Regimen
02/16/24 02/16/24
03:10 08:45
Creatinine 1.2 H 1.0
Insulin Pump Settings
IP Diabetes Regimen
02/16/24 02/16/24 02/16/24
03:10 06:26 08:11
Glucose 609 H*
POC Glucose 415 H 414 H
02/16/24
08:45
Glucose 429 H
POC Glucose
Patient Education
[2024-02-16 10:16] LABS: Glucose 426 mg/dl (70-99)
[2024-02-16] MEDS: NOVOLOG FLEXPEN 16 UNITS SC (10:25)
[2024-02-16] MEDS: APRESOLINE 50 MG PO ×2 (10:28→20:28)
[2024-02-16] MEDS: IMODIUM 2 MG PO (10:28)
[2024-02-16] MEDS: LEXAPRO 20 MG PO (10:29)
[2024-02-16] MEDS: PROGRAF 4 MG PO ×2 (10:29→20:26)
[2024-02-16] MEDS: COREG 6.25 MG PO ×2 (10:29→20:28)
[2024-02-16] MEDS: MYFORTIC DELAYED REL. 360 MG PO ×2 (10:30→20:28)
[2024-02-16] MEDS: NOVOLOG FLEXPEN-LOW RESISTANCE 6 UNITS SC (10:30)
[2024-02-16] MEDS: TYLENOL 650 MG PO ×2 (10:30→23:34)
--- NOTE | 2024-02-16 11:08 | W.PN.HOSP.TC ---
Today's Communication/Plan
-
DKA management
Assessment / Plan
Assessment / Plan
Impression:
Patient is a 69y F with PMH significant for DM, CKD s/p renal transplant and chronic diarrhea who presents to ED for evaluation s/p fall at home early this AM.
DKA.
VIANEY on CKD 2.
Hyperkalemia
Pseudohyponatremia
Hypercalcemia
Leukocytosis
Non-CA troponin elevation
Falls at home
Conditions prior to admission:
IDDM
Renal transplant
Immunosuppression with Prograf and CellCept.
ASCVD/carotid artery disease.
Essential hypertension
Asthma.
Obesity with BMI of 36.
Chronic diarrhea
Anxiety/depression.
Plan:
Poorly controlled diabetes (hemoglobin A1c 10/25 at 12)
DKA. Corrected sodium with hyperglycemia, patient with elevated anion gap, elevated serum acetone level.
Hold subcutaneous insulin.
Transition to IV insulin drip at 6 units an hour with titration
Serial Accu-Cheks
Serial BMP
Okay for clear liquid diet.
Further adjustment of subcutaneous regimen after correction of acute metabolic abnormalities
VIANEY on CKD 2
renal transplant on immunosuppression with CellCept and Prograf.
Intravascularly depleted given DKA, polyuria, diarrhea.
Continue isotonic solution. Adjust IV fluids according to blood glucose and potassium levels with hyperglycemia correction.
Hyperkalemia is a function of hyperglycemia and acidosis.
Bladder scan rule out retention (patient reports incontinence)
Hold valsartan and spironolactone
Continue CellCept and Prograf. Follow level
Leukocytosis, likely stress-induced with acidosis.
Afebrile with no specific complaints suggestive of infection.
Suspect polyuria secondary to hyperglycemia
Urinalysis not consistent with UTI
Check blood cultures
Check chest x-ray.
Monitor closely off antibiotics while she is on immunosuppression.
Non-CA troponin elevation.
Most recent echo 2021 with preserved biventricular function. No documented CAD.
ECG normal sinus rhythm without ischemic changes
Suspect abnormal troponin due to decreased renal clearance
Monitor trend, if uptrending consider further evaluation
ASCVD/carotid disease
Continue aspirin and statin
Falls at home
Neurologic examination with no focal abnormalities
CT scan of the head with no acute abnormalities.
Physical therapy evaluation.
Asthma without Exacerbation
- Continue inhaler regimen / albuterol PRN.
Anxiety / Depression
- Patient tearful / depressed in the ED.
- Continue Lexapro. Consider med / dose adjustment.
Obesity due to excess calories
- Affects all aspects of care.
- Encourage healthy diet and increased activity with goal of weight loss.
DVT Prophylaxis: Lovenox
Code Status: Full
Anticipated Discharge: 24 - 48 hours
Subjective/Interval History
-
Date of Service: February 16, 2024
Objective Data
-
Labs:
Laboratory Results
02/16/24 02/16/24 02/16/24
03:10 08:45 09:39
WBC 20.0 H
Hgb 11.9 L
Hct 34.6 L
Plt Count 332
Sodium 123 L 127 L
Potassium 5.7 H 5.6 H
Chloride 90 L 97 L
Carbon Dioxide 20 L 19 L
BUN 31 H 31 H
Creatinine 1.2 H 1.0
Glucose 609 H* 429 H 426 H
Calcium 10.4 H 9.6
Total Bilirubin 1.5 H
AST 16
ALT 14
Alkaline Phosphatase 106
02/16/24 02/16/24 02/16/24
12:00 14:00 16:00
WBC
Hgb
Hct
Plt Count
Sodium Pending Pending Pending
Potassium Pending Pending Pending
Chloride Pending Pending Pending
Carbon Dioxide Pending Pending Pending
BUN Pending Pending Pending
Creatinine Pending Pending Pending
Glucose Pending Pending Pending
Calcium Pending Pending Pending
Total Bilirubin
AST
ALT
Alkaline Phosphatase
02/16/24 02/16/24 02/16/24
18:00 20:00 22:00
WBC
Hgb
Hct
Plt Count
Sodium Pending Pending Pending
Potassium Pending Pending Pending
Chloride Pending Pending Pending
Carbon Dioxide Pending Pending Pending
BUN Pending Pending Pending
Creatinine Pending Pending Pending
Glucose Pending Pending Pending
Calcium Pending Pending Pending
Total Bilirubin
AST
ALT
Alkaline Phosphatase
Vital Signs:
Vital Signs
Temp Pulse Resp BP Pulse Ox
98.4 F 79 20 149/48 94
02/16/24 08:00 02/16/24 09:30 02/16/24 09:30 02/16/24 08:00 02/16/24 09:30
Physical Exam
-
General: Well Developed and No Apparent Distress
HEENT: Normocephalic, Atraumatic and Moist Mucous Membranes
Respiratory: Clear to Auscultation
Cardiac: Regular Rhythm and S1/S2; Negative Murmur, Rub or Gallop
GI: Soft, Nontender, Nondistended and Normal Bowel Sounds; Negative Organomegaly
Rectal: Deferred by Provider
Musculoskeletal: No Clubbing, No Cyanosis and No Edema
Skin: Negative Rash
Neuro: Awake, Alert, Oriented, AO x 3 and Nonfocal/Grossly Intact
[2024-02-16] MEDS: NOVOLIN R INSULIN INFUSION 100 IV (11:15)
[2024-02-16 11:55] LABS: TSH Reflex To Free T4 0.57 uIU/ml (0.47-4.68)
[2024-02-16 12:36] LABS: Blood Urea Nitrogen 30 mg/dl (7-17); Calcium 9.4 mg/dl (8.4-10.2); Carbon Dioxide 20 mmol/L (22-30); Chloride 97 mmol/L (98-107); Estimated Creatinine Clearance 62 ml/min; Glucose 491 mg/dl (70-99); Sodium 126 mmol/L (135-145); eGFR > 60.00
[2024-02-16 12:47] LABS: Glucose - Point of Care 479 mg/dl (70-99)
[2024-02-16 13:14] LABS: Glucose - Point of Care 432 mg/dl (70-99)
[2024-02-16 14:07] LABS: Glucose - Point of Care 353 mg/dl (70-99)
--- NOTE | 2024-02-16 14:25 | PTCARENOTE ---
Late entry - Admitted to 3341 this am, IMU monitors placed and admission completed bedside. IVF initiated on arrival as ordered. Ate 100% of breakfast and Novolog 16 units + LDSSI given as documented. Bladder scanned 200ml on arrival MD
requested. Purewick in place. Tylenol given for mild chronic pain, along with all am meds.
Later this am Insulin gtt initiated as ordered. VAT team here and placed 2nd line. Discussed using left arm (Old AV Fistula non working and not needed) ok by Dr. Beaver to use if needed.
AAO forgetful / sleepy. Vs noted. Thirsty, ice chips provided. Now on clear liq diet. Latest accu check 353. LCTA, SR on tele BP 140s/60s. 600ml yellow urine in purewick container.
at bedside.
[2024-02-16 14:36] LABS: Glycohemoglobin (HgbA1c) 12.6 % (4.0-5.6)
[2024-02-16 14:55] LABS: Blood Urea Nitrogen 28 mg/dl (7-17); Calcium 9.6 mg/dl (8.4-10.2); Carbon Dioxide 22 mmol/L (22-30); Chloride 99 mmol/L (98-107); Estimated Creatinine Clearance 62 ml/min; Glucose 336 mg/dl (70-99); Potassium 4.6 mmol/L (3.5-5.1); Sodium 127 mmol/L (135-145); eGFR > 60.00
[2024-02-16 15:08] LABS: Troponin I 0.248 ng/ml
[2024-02-16 15:10] LABS: Glucose - Point of Care 339 mg/dl (70-99)
[2024-02-16 16:29] LABS: Glucose - Point of Care 335 mg/dl (70-99)
[2024-02-16 16:41] LABS: Blood Urea Nitrogen 29 mg/dl (7-17); Calcium 9.1 mg/dl (8.4-10.2); Carbon Dioxide 19 mmol/L (22-30); Chloride 99 mmol/L (98-107); Estimated Creatinine Clearance 69 ml/min; Glucose 331 mg/dl (70-99); Potassium 4.6 mmol/L (3.5-5.1); Sodium 125 mmol/L (135-145); eGFR > 60.00
--- NOTE | 2024-02-16 16:41 | CM ---
Addendum entered by Laury Nolasco RN 02/16/24 16:51:
Plan follow up after seen by PT/OT.
Original Note:
Patient with Dx Poorly controlled diabetes, DKA, VIANEY, Falls at home. Room air. Receiving IVF, Insulin gtt. Clear liquids. PT/OT on hold.
Met with patient and Handy;
the patient resides with her in a 2 story townhouse with 8 DOV.
The patient has been independent in ADLs and ambulation using her SPC, was able to drive short distances.
She has had 2 fals in the past few months: she fell in November and Fx her wrist, fell yesterday.
She was unwell yesterday and staying in her recliner couch. Last night before admission her legs were weak and she was unable to walk.
No housing/food/utility/transport insecurity.
DME - RW, SPC, electric w/c, 2 glucometers
No prior VN or SNF.
PCP - Lizzie Pearce
Pharmacy - [facility] [address], [place]
The patient has no children.
[2024-02-16 17:26] LABS: Glucose - Point of Care 289 mg/dl (70-99)
[2024-02-16] MEDS: LOVENOX 40 MG SC (17:35)
[2024-02-16] MEDS: NOVOLOG FLEXPEN-LOW RESISTANCE 3 UNITS SC (17:38)
[2024-02-16 18:43] LABS: Glucose - Point of Care 313 mg/dl (70-99)
[2024-02-16 18:51] LABS: Blood Urea Nitrogen 27 mg/dl (7-17); Carbon Dioxide 16 mmol/L (22-30); Chloride 98 mmol/L (98-107); Estimated Creatinine Clearance 69 ml/min; Glucose 312 mg/dl (70-99); Potassium 4.8 mmol/L (3.5-5.1); Sodium 124 mmol/L (135-145); eGFR > 60.00
--- NOTE | 2024-02-16 19:10 | PTCARENOTE ---
received pt from day shift. Pt aaox3, anxious and forgetful at times. Insulin gtt @ 5 u/hr (see worklist). NS gtt @ 150 mL/hr. VSS. Pt resting in bed with call birch in reach
[2024-02-16 19:41] LABS: Glucose - Point of Care 284 mg/dl (70-99)
[2024-02-16] MEDS: ASPIR LOW (ENTERIC COATED) 81 MG PO (20:27)
[2024-02-16] MEDS: LIPITOR 80 MG PO (20:28)
[2024-02-16 20:55] LABS: Glucose - Point of Care 250 mg/dl (70-99)
[2024-02-16 21:05] LABS: Blood Urea Nitrogen 26 mg/dl (7-17); Calcium 9.2 mg/dl (8.4-10.2); Carbon Dioxide 21 mmol/L (22-30); Chloride 98 mmol/L (98-107); Estimated Creatinine Clearance 78 ml/min; Glucose 248 mg/dl (70-99); Potassium 5.3 mmol/L (3.5-5.1); Sodium 125 mmol/L (135-145); eGFR > 60.00
[2024-02-16] MEDS: D5/0.45%NACL 1000 IV (21:07)
[2024-02-16 21:46] LABS: Glucose - Point of Care 296 mg/dl (70-99)
[2024-02-16 22:49] LABS: Glucose - Point of Care 259 mg/dl (70-99)
[2024-02-16 23:04] LABS: Blood Urea Nitrogen 23 mg/dl (7-17); Calcium 8.9 mg/dl (8.4-10.2); Carbon Dioxide 21 mmol/L (22-30); Chloride 97 mmol/L (98-107); Estimated Creatinine Clearance 69 ml/min; Glucose 274 mg/dl (70-99); Potassium 4.6 mmol/L (3.5-5.1); Sodium 125 mmol/L (135-145); eGFR > 60.00
[2024-02-16 23:49] LABS: Glucose - Point of Care 288 mg/dl (70-99)
[2024-02-17] VITALS (14 sets, daily range): BP systolic 127–172; BP diastolic 53–94; PULSE 70–83; O2SAT 95; BMI 38.0
[2024-02-17 00:51] LABS: Glucose - Point of Care 313 mg/dl (70-99)
[2024-02-17 01:40] LABS: Glucose - Point of Care 293 mg/dl (70-99)
[2024-02-17 01:50] LABS: Blood Urea Nitrogen 23 mg/dl (7-17); Calcium 8.9 mg/dl (8.4-10.2); Carbon Dioxide 19 mmol/L (22-30); Chloride 98 mmol/L (98-107); Estimated Creatinine Clearance 69 ml/min; Glucose 293 mg/dl (70-99); Potassium 4.9 mmol/L (3.5-5.1); Sodium 125 mmol/L (135-145); eGFR > 60.00
[2024-02-17 02:49] LABS: Glucose - Point of Care 258 mg/dl (70-99)
[2024-02-17 03:38] LABS: Blood Urea Nitrogen 23 mg/dl (7-17); Calcium 8.7 mg/dl (8.4-10.2); Carbon Dioxide 16 mmol/L (22-30); Chloride 101 mmol/L (98-107); Estimated Creatinine Clearance 70 ml/min; Glucose 280 mg/dl (70-99); Potassium 4.5 mmol/L (3.5-5.1); Sodium 126 mmol/L (135-145); eGFR > 60.00
[2024-02-17 03:50] LABS: Glucose - Point of Care 292 mg/dl (70-99)
[2024-02-17] MEDS: NOVOLIN R INSULIN INFUSION 100 IV (03:57)
--- NOTE | 2024-02-17 04:04 | PTCARENOTE ---
pt has been getting q2 BMP's all night, on the insulin gtt, titrated per protocol, q1 accu checks. notified covering [employer] about gap closing- BMP's changed to q4 at this time. next one ordered for 0600. pt did have a low grade temp tonight 100.5, PRN
tylenol given. during fever pt noted to be confused at times, forgetful, and restless. bed alarm on, [employer] also notified of event. once fever broke, pt noted to be oriented again, calm, and playing music on her phone. pt admits to remembering being
confused. pt currently sleeping on and off. care ongoing.
[2024-02-17 04:50] LABS: Glucose - Point of Care 263 mg/dl (70-99)
[2024-02-17] MEDS: D5/0.45%NACL 1000 IV (05:41)
[2024-02-17 05:44] LABS: Glucose - Point of Care 265 mg/dl (70-99)
[2024-02-17 06:05] LABS: Hematocrit 27.4 % (37.0-47.0); Hemoglobin 9.4 g/dL (12.0-16.0); Mean Corp Hgb Conc. 34.3 g/dL (33.0-37.0); Mean Corpuscular Hgb 27.5 pg (27.0-31.0); Mean Corpuscular Volume 80.1 fL (81.0-99.0); Mean Platelet Volume 10.8 fL (7.4-10.4); Platelet Count 227 10^3/uL (130-400); Red Blood Cell Count 3.42 10^6/uL (4.20-5.40); Red Cell Dist. Width 13.4 % (11.5-14.5)
[2024-02-17 06:23] LABS: Troponin I 0.331 ng/ml
[2024-02-17 06:26] LABS: Blood Urea Nitrogen 24 mg/dl (7-17); Calcium 8.7 mg/dl (8.4-10.2); Carbon Dioxide 19 mmol/L (22-30); Chloride 99 mmol/L (98-107); Estimated Creatinine Clearance 70 ml/min; Glucose 276 mg/dl (70-99); Magnesium 1.8 mg/dl (1.6-2.3); Phosphorus 2.7 mg/dl (2.5-4.5); Potassium 4.4 mmol/L (3.5-5.1); Sodium 125 mmol/L (135-145); eGFR > 60.00
[2024-02-17 06:51] LABS: Glucose - Point of Care 271 mg/dl (70-99)
[2024-02-17] MEDS: SYMBICORT 160/4.5 MCG INHALER 1 PUFF INH ×2 (07:24→20:06)
[2024-02-17] MEDS: NOVOLOG FLEXPEN-LOW RESISTANCE SC (07:30)
[2024-02-17 07:32] LABS: Glucose - Point of Care 278 mg/dl (70-99)
--- NOTE | 2024-02-17 08:02 | PN.DE.MGMTRT ---
Insulin Management
- -
02/17/2024 Diabetes Management Consult Follow up
Patient admitted 02/15 s/p fall at home. PMH CHF, HTN, HCL, asthma, diabetes, renal failure with transplant, hypothyroid, depression, carotid artery stenosis, migraine, sarcoidosis, diverticulitis, pancreatitis, IBS. Prior to admission patient was
taking tresiba 36 units BID with humalog 24 units AC. Last A1C 12.8% October 2023, cr 1, eGFR >60, BUN 31.
Patient is awake, alert and oriented but drowsy. Able to discuss diabetes management. States she was diagnosed at age 22, did take oral diabetes meds for about 5 years then switched to insulin. She currently sees Dr. Sallie Duffy endocrine
for diabetes management patient states Dr. Duffy told her she was probably misdiagnosed and has type 1 diabetes.
Glucose on admission 609. 8/15 AM labs indicate GAP of 18 insulin infusion started. A1C 12.6%.
Glucose remains > 200, GAP now 9.8. Will transition from IV insulin to subcutaneous insulin. Give 38 units lantus now, insulin infusion off in 2 hours. Will increase BID lantus to 38 units and novolog AC 25 units
Diabetes History
- -
Type of Diabetes: 2 requiring insulin
Pre-Admission Diabetes Regimen
02/16/24 02/16/24 02/16/24
08:45 11:45 14:09
Creatinine 1.0 1.0 1.0
02/16/24 02/16/24 02/16/24
16:11 18:32 20:45
Creatinine 0.9 0.9 0.8
02/16/24 02/17/24 02/17/24
22:42 00:43 02:41
Creatinine 0.9 0.9 0.9
02/17/24 02/17/24 02/17/24
04:00 05:40 08:00
Creatinine Cancelled 0.9 Cancelled
02/17/24
10:00
Creatinine Cancelled
Lab Results
Hemoglobin A1c 12.6 % (4.0-5.6) H 02/16/24 11:45
Insulin Pump Settings
IP Diabetes Regimen
02/16/24 02/16/24 02/16/24
08:11 08:45 09:39
Glucose 429 H 426 H
POC Glucose 414 H
02/16/24 02/16/24 02/16/24
11:29 11:45 13:01
Glucose 491 H*
POC Glucose 479 H* 432 H
02/16/24 02/16/24 02/16/24
13:55 14:09 14:59
Glucose 336 H
POC Glucose 353 H 339 H
02/16/24 02/16/24 02/16/24
16:11 16:16 17:14
Glucose 331 H
POC Glucose 335 H 289 H
02/16/24 02/16/24 02/16/24
18:31 18:32 19:29
Glucose 312 H
POC Glucose 313 H 284 H
02/16/24 02/16/24 02/16/24
20:44 20:45 21:34
Glucose 248 H
POC Glucose 250 H 296 H
02/16/24 02/16/24 02/16/24
22:37 22:42 23:38
Glucose 274 H
POC Glucose 259 H 288 H
02/17/24 02/17/24 02/17/24
00:38 00:43 01:29
Glucose 293 H
POC Glucose 313 H 293 H
02/17/24 02/17/24 02/17/24
02:37 02:41 03:39
Glucose 280 H
POC Glucose 258 H 292 H
02/17/24 02/17/24 02/17/24
04:00 04:39 05:32
Glucose Cancelled
POC Glucose 263 H 265 H
02/17/24 02/17/24 02/17/24
05:40 06:41 07:10
Glucose 276 H
POC Glucose 271 H 278 H
02/17/24 02/17/24
08:00 10:00
Glucose Cancelled Cancelled
POC Glucose
Patient Education
[2024-02-17 08:44] LABS: Glucose - Point of Care 256 mg/dl (70-99)
[2024-02-17] MEDS: MYFORTIC DELAYED REL. 360 MG PO ×2 (09:09→20:09)
[2024-02-17] MEDS: PROGRAF 4 MG PO ×2 (09:09→20:08)
[2024-02-17] MEDS: APRESOLINE 50 MG PO ×2 (09:10→20:08)
[2024-02-17] MEDS: IMODIUM PO (09:10)
[2024-02-17] MEDS: COREG 6.25 MG PO ×2 (09:10→20:08)
[2024-02-17] MEDS: LEXAPRO 20 MG PO (09:10)
[2024-02-17 09:46] LABS: Glucose - Point of Care 287 mg/dl (70-99)
[2024-02-17] MEDS: NOVOLOG FLEXPEN 25 UNITS SC ×3 (09:57→17:39)
[2024-02-17] MEDS: LANTUS 0.38 UNITS SC ×2 (09:58→20:51)
--- NOTE | 2024-02-17 11:13 | CON.CAR ---
Addendum entered and electronically signed by Mika Hall MD 02/17/24 19:21:
69-year-old woman with history of renal transplant and longstanding diabetes now admitted following a fall and found to have DKA. Elevated troponin of 0.3.
PMH: Longstanding diabetes, renal transplant on Prograf and CellCept, hypertension, asthma, obesity, anxiety and depression, sarcoid, HFpEF, GERD, TIA, blindness right eye, 5
SH: ORIF of left distal radius for open fracture, left CEA, bilateral carpal tunnel
Allergies: Cephalosporins, Byetta, penicillin, sulfa
Outpatient medications: Albuterol, aspirin 81 mg a day, atorvastatin 80 mg a day, budesonide/formoterol, carvedilol 6.25 twice daily, Flexeril, escitalopram 20 mg a day, ezetimibe 10 mg a day, hydralazine 50 mg twice daily, insulin, Lomotil,
losartan 50 mg twice daily, Slow-Mag, mycophenolate, pantoprazole, spironolactone 25 mg a day and tacrolimus
Current meds: Aspirin 81 mg a day, atorvastatin 80 mg a day, Symbicort, carvedilol 6.25 twice daily, Lexapro 20 mg a day, hydralazine 50 mg twice daily, Imodium, mycophenolate, tacrolimus, enoxaparin, and insulin
ROS: Negative except as above
166/59, pulse 76, afebrile, resp rate 16, weight is 103.5 kg, up 3 kg, no acute distress but slow to respond, says her memory is unwell, head neck exam is unremarkable, lungs are clear, JVD is okay, no obvious murmurs, regular rate and rhythm,
abdomen obese extremities without much edema
White count 13, hemoglobin 9.4, had been 11.9, sodium 125, was 123 on admission potassium 4.4, was 5.3 on admission CO2 19, BUN 24, creatinine 0.9, troponin 0.331, peak was 0.36
EKG sinus rhythm, prominent anterior T waves at admission, LVH nonspecific ST and T changes
Echo October 2021: Mild to moderate LVH, EF 55-60%, normal RV, normal atria, mitral annular calcification, no MR, aortic sclerosis, no tricuspid regurgitation
Impression:
Presented 02/16/2024 with fall, weakness, poor appetite and intermittent diarrhea
DKA, hemoglobin A1c 12.6%
Hyponatremia
Hyperkalemia, resolved
VIANEY, resolved
Abnormal troponin, peaked at 0.360
CVA/TIA/dysarthria 05/30/22
Carotid artery stenosis
s/p Left CEA 06/01/22Chronic HFpEF
CKD s/p donor transplant at [facility] 09/2013
Sarcoid
HTN
DM 2
Hyperlipidemia
Asthma
Chronic back pain
Anxiety
Hypomagnesemia, chronic
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
Left distal radius ORIF 11/2023
Plan:
She presents in DKA and an elevated troponin of approximately 0.4, likely represent a non-ACS related myocardial injury, previously known as demand ischemia or type II event.
She appears hemodynamically stable at this time. An echocardiogram done earlier today showed preserved systolic LV function and valvular heart disease.
At present would continue medical regimen of carvedilol, low-dose aspirin, hydralazine and atorvastatin.
Would recommend pharmacologic stress test when stabilized. This could be considered as an inpatient or an outpatient.
We will continue to follow.
Original Note:
Consultation
Consultation Request
Date/Time Consultation Requested: 02/17/2024
Date/Time Consultation Performed: 02/17/2024
Requesting Provider: Dr. Nielsen
Performing Provider: Melody Baumann PA-C for Dr. ILA Hall
Reason for Consultation: abnormal troponin
Medical History
-
History of Present Illness:
Patient is a 69-year-old female with a past medical history of heart failure with preserved ejection fraction, intermittent Mobitz 2 heart block, TIA, carotid artery stenosis status post left CEA, hyperlipidemia, asthma, kidney transplant
chronically maintained on tacrolimus and mycophenolate, diabetes maintained on insulin therapy, and hypertension maintained on losartan hydralazine Aldactone and carvedilol. She presented to the emergency room last evening after sustaining a fall
at home. The patient has been feeling poorly for several weeks noting generalized weakness poor appetite and intermittent diarrhea. She also has complained of including cough and sore throat. Her blood sugars have been poorly controlled and were
609 on presentation, hemoglobin A1c 12.6%. She was also noted to be hyponatremic with sodium of 125 and mild VIANEY with creatinine of 1.2. Chest x-ray showed no acute cardiopulmonary abnormality. Head CT showed no acute intracranial abnormality
with chronic small vessel disease which is stable. Cardiology being asked to see patient as she was found to have abnormal troponin which peaked at 0.360. EKG showed sinus rhythm at 86 bpm without evidence of ischemia.
At time of this evaluation patient reports she is feeling better. She is sitting up in chair in her room and denies chest pain, shortness of breath, dizziness, lightheadedness, palpitations, edema or orthopnea/PND.
PMH:
CVA/TIA/dysarthria 05/30/22
Carotid artery stenosis
s/p Left CEA 06/01/22
Chronic HFpEF
CKD s/p donor transplant at [facility] 09/2013
Sarcoid
HTN
DM 2
Hyperlipidemia
Asthma
Chronic back pain
Anxiety
Hypomagnesemia, chronic
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
Left distal radius ORIF 11/2023
Past Medical History
Past Medical History: Other (in HPI)
Past Surgical History: Cholecystectomy, Gynecological (hysterectomy), Orthopedic (Left distal radius ORIF 11/2023) and Other ( donor kidney transplant 09/2013 at [facility], )
Social History
Tobacco: Former Smoker
Alcohol: None
Drug: None
Personal:
Living: With Family
Family History
Family History: CAD and Diabetes
Allergies / Home Medications
Allergy/AdvReac Type Severity Reaction Status Date / Time
adhesive tape [Adhesive Tape] Allergy Rash Verified 11/10/23 11:56
Cephalosporins Allergy resp.failure Verified 11/10/23 11:56
(never had
cephalospoirin)
exenatide [From Byetta] Allergy pancreatiti Verified 11/10/23 11:56
s
penicillin V Allergy resp.failure Verified 11/10/23 11:56
x2
()
pollen extracts Allergy Hayfever Verified 11/10/23 11:56
sulfamethoxazole Allergy low blood Verified 11/10/23 11:56
sugar
tree and shrub pollen Allergy Unknown Verified 11/10/23 11:56
trimethoprim Allergy low blood Verified 11/10/23 11:56
sugar
SOME BERRIES Allergy Unknown Uncoded 11/10/23 11:56
�Medication �Instructions �Recorded �Confirmed �Type
escitalopram oxalate 20 mg tablet 20 mg PO DAILY Mental 08/05/16 02/16/24 History
Health/Anxiety
mycophenolate sodium 180 mg 360 mg PO BID Transplant 08/05/16 02/16/24 History
tablet,delayed release
pantoprazole 40 mg tablet,delayed 40 mg PO DAILY Gastrointestinal 08/05/16 02/16/24 History
release issue
tacrolimus 1 mg capsule, 4 mg PO BID Transplant 08/05/16 02/16/24 History
immediate-release
acetaminophen 500 mg tablet 1,000 mg PO BIDPRN PRN mild pain 09/05/19 02/16/24 History
(Tylenol Extra Strength)
cyanocobalamin (vitamin B-12) 1,000 mcg PO HS Supplement 09/01/21 02/16/24 History
1,000 mcg tablet
ezetimibe 10 mg tablet 10 mg PO DAILY High cholesterol 09/01/21 02/16/24 History
losartan 50 mg tablet 50 mg PO BID Blood pressure #60 06/10/22 02/16/24 Rx
tabs
albuterol sulfate 90 mcg/actuation 2 puff inhalation R Q4HPRN PRN sob 10/27/23 02/16/24 History
aerosol inhaler
aspirin 81 mg tablet,delayed 81 mg PO HS Blood Clot 10/27/23 02/16/24 History
release Prevention/Tx
atorvastatin 80 mg tablet 80 mg PO HS High cholesterol 10/27/23 02/16/24 History
budesonide-formoterol HFA 160 1 puff inhalation R BID 10/27/23 02/16/24 History
mcg-4.5 mcg/actuation aerosol Lung/Breathing Issues
inhaler
carvedilol 6.25 mg tablet 6.25 mg PO BID Heart 10/27/23 02/16/24 History
Disease/Condition
hydralazine 50 mg tablet 50 mg PO BID Blood pressure 10/27/23 02/16/24 History
magnesium chloride 71.5 mg 71.5 mg PO DAILY Electrolyte 10/29/23 02/16/24 Rx
(magnesium chloride) Repletion #30 tabs
tablet,delayed release (Slow-Mag)
cyclobenzaprine 10 mg tablet 10 mg PO DAILYPRN PRN spasms 02/16/24 02/16/24 History
insulin degludec 100 unit/mL (3 36 unit SC BID Diabetes 02/16/24 02/16/24 History
mL) subcutaneous pen (Tresiba
FlexTouch U-100 insulin)
insulin lispro 100 unit/mL 24 unit SC AC Diabetes 02/16/24 02/16/24 History
subcutaneous pen (Humalog KwikPen
(U-100) Insulin)
loperamide 2 mg capsule 2 mg PO QIDPRN PRN diarrhea 02/16/24 02/16/24 History
spironolactone 25 mg tablet 25 mg PO DAILY Blood Pressure 02/16/24 02/16/24 History
Review of Systems
-
History Source: Patient
All other systems: Negative unless noted
Physical Exam
Vital Signs
Temp Pulse Resp BP Pulse Ox
98.4 F 83 20 154/53 97
02/17/24 07:00 02/17/24 07:27 02/17/24 07:27 02/17/24 06:00 02/17/24 07:27
GEN: No distress, awake, Ox3, sitting up in chair
HEENT: supple, anicteric, mmm
LUNGS: CTA bilaterally, no wheezes/rales
CV: Reg, S1/S2, no murmur, rub or gallop
ABD: Obese, soft, BS+, NT/ND
EXT: No edema, clubbing or cyanosis
NEURO: Gross non-focal
SKIN: No rash, warm, dry, pink
Lab Results
02/17/24 05:40
02/17/24 10:00
Troponin I 0.331 ng/ml H* 02/17/24 05:40
Impression / Plan
-
PCP: Dr. Redd Caicedo
Primary Lead Loader: Dr. Monika Garza
Nephrology: Dr. Holder locally, transplant center is [facility]
Impression:
Presented 02/16/2024 with fall, weakness, poor appetite and intermittent diarrhea
DKA, hemoglobin A1c 12.6%
Hyponatremia
Hyperkalemia, resolved
VIANEY, resolved
Abnormal troponin, peaked at 0.360
CVA/TIA/dysarthria 05/30/22
Carotid artery stenosis
s/p Left CEA 06/01/22
Chronic HFpEF
CKD s/p donor transplant at [facility] 09/2013
Sarcoid
HTN
DM 2
Hyperlipidemia
Asthma
Chronic back pain
Anxiety
Hypomagnesemia, chronic
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
Left distal radius ORIF 11/2023
Nuclear stress test 12/2011: without ischemia, small fixed anterior segment and apical segment� consistent with soft tissue attenuation. EF 60%
Echo 12/2014: EF 60%, trace MR, trace TR, PAP 24-29mmHg, mod LVH
Echo 10/29/21: EF 55-60%, mild to mod LVH
Echo 02/17/2024: Pending
Plan:
-Presented 02/16/2024 with fall, weakness, poor appetite and intermittent diarrhea and was found to be in DKA with hemoglobin A1c 12.6%
-Treatment of DKA per primary service, dragline oiler consulted
-Abnormal troponin, peaked at 0.36. EKG without ischemic changes and patient denies chest pain. Suspect nonischemic myocardial injury secondary to DKA, VIANEY, electrolyte derangements
-Agree with checking echo, pending
-Would consider outpatient ischemic evaluation once patient medically stable
-History of renal transplant on immunosuppression with CellCept and Prograf. Resolved VIANEY and electrolyte derangement. Nephrology following
-Given falls at home needs PT OT evaluation
HPI 02/17/2024:
Patient is a 69-year-old female with a past medical history of heart failure with preserved ejection fraction, intermittent Mobitz 2 heart block, TIA, carotid artery stenosis status post left CEA, hyperlipidemia, asthma, kidney transplant
chronically maintained on tacrolimus and mycophenolate, diabetes maintained on insulin therapy, and hypertension maintained on losartan hydralazine Aldactone and carvedilol. She presented to the emergency room last evening after sustaining a fall
at home. The patient has been feeling poorly for several weeks noting generalized weakness poor appetite and intermittent diarrhea. She also has complained of including cough and sore throat. Her blood sugars have been poorly controlled and were
609 on presentation, hemoglobin A1c 12.6%. She was also noted to be hyponatremic with sodium of 125 and mild VIANEY with creatinine of 1.2. Chest x-ray showed no acute cardiopulmonary abnormality. Head CT showed no acute intracranial abnormality
with chronic small vessel disease which is stable. Cardiology being asked to see patient as she was found to have abnormal troponin which peaked at 0.360. EKG showed sinus rhythm at 86 bpm without evidence of ischemia.
At time of this evaluation patient reports she is feeling better. She is sitting up in chair in her room and denies chest pain, shortness of breath, dizziness, lightheadedness, palpitations, edema or orthopnea/PND.
Data Reviewed
-
EKG: Report Reviewed by me, Discussed with Physician and Discussed with Patient
Radiology: Report Reviewed by me, Discussed with Physician and Discussed with Patient
Labs: Labs Reviewed by me, Discussed with Physician and Discussed with Patient
Old Records: Reviewed
[2024-02-17 12:39] LABS: Glucose - Point of Care 254 mg/dl (70-99)
[2024-02-17] MEDS: NOVOLOG FLEXPEN-MODERATE RESISTANCE 5 UNITS SC (12:48)
--- NOTE | 2024-02-17 13:07 | CM ---
Addendum entered by Laury Nolasco RN 02/17/24 16:05:
Spoke with [facility]; both of those SNFs take [employer] insurance. As patient prefers [facility], the DON there indicated we will have to wait until Tuesday to learn whether they will have an available bed. [facility] in [place]
will be back on Tuesday.
Plan follow up 02/19 with [facility] for bed availability.
Addendum entered by Laury Nolasco RN 02/17/24 13:41:
Response from [facility]; they do not take [employer].
Additional referrals made.
Original Note:
Patient with Dx Poorly controlled diabetes, DKA, VIANEY, Falls at home. Seen by DM Educator; transitioned from IV insulin to SQ insulin. PT & OT recommend skilled rehab.
Spoke with patient who agrees to short term SNF for rehab. She agrees to referrals to [facility].
SNF referrals placed.
Plan follow up SNF referrals.
[2024-02-17 14:16] LABS: Osmolality Urine 203 mOsm/kg (300-900)
--- NOTE | 2024-02-17 14:59 | W.PN.HOSP.TC ---
Today's Communication/Plan
-
Transition to subcutaneous insulin, continue basal bolus protocol, adjust dose accordingly.
Carbohydrate controlled diet
Echocardiogram
Cardiology consultation
Physical therapy evaluation
May need placement to assisted facility for rehab given overall deconditioning and poor medication compliance.
Assessment / Plan
Assessment / Plan
Impression:
Patient is a 69y F with PMH significant for DM, CKD s/p renal transplant and chronic diarrhea who presents to ED for evaluation s/p fall at home early this AM.
DKA.
VIANEY on CKD 2.
Hyperkalemia
Pseudohyponatremia
Hypercalcemia
Leukocytosis
Troponin elevation secondary to nonischemic cardiac injury in the settings of DKA.
Falls at home
Conditions prior to admission:
IDDM
Renal transplant
Immunosuppression with Prograf and CellCept.
ASCVD/carotid artery disease.
Essential hypertension
Asthma.
Obesity with BMI of 36.
Chronic diarrhea
Anxiety/depression.
Plan:
Poorly controlled diabetes globin A1c 12 (hemoglobin A1c 10/25 at 12)
DKA. Corrected sodium with hyperglycemia, patient with elevated anion gap, elevated serum acetone level.
Initiated on IV insulin drip with now normalized anion gap.
Transition to subcutaneous insulin Lantus/NovoLog adjusting dose daily.
Advance to carbohydrate controlled diet
Continue basal bolus protocol.
VIANEY on CKD 2
renal transplant on immunosuppression with CellCept and Prograf.
Intravascularly depleted given DKA, polyuria, diarrhea.
Hyperkalemia is a function of hyperglycemia and acidosis.
Acidosis and hyperkalemia improved with IV fluids and insulin.
Continue bladder scan rule out retention (patient reports incontinence)
Hold valsartan and spironolactone
Continue CellCept and Prograf. Tacrolimus level 2.1
Leukocytosis, likely stress-induced with acidosis. Improving
Afebrile with no specific complaints suggestive of infection.
Suspect polyuria secondary to hyperglycemia
Urinalysis not consistent with UTI
Blood cultures negative today
Chest x-ray with no acute abnormalities
Monitor closely off antibiotics while she is on immunosuppression.
ASCVD/carotid disease
History of TIA
Continue aspirin and statin
Troponin elevation secondary to nonischemic cardiac injury in the settings of DKA peaked at 0.3
Most recent echo 2021 with preserved biventricular function. No documented CAD.
ECG normal sinus rhythm without ischemic changes
Echocardiogram
Cardiology evaluation.
Falls at home
Neurologic examination with no focal abnormalities
CT scan of the head with no acute abnormalities.
Physical therapy evaluation.
Asthma without Exacerbation
- Continue inhaler regimen / albuterol PRN.
Anxiety / Depression
- Patient tearful / depressed in the ED.
- Continue Lexapro. Consider med / dose adjustment.
Obesity due to excess calories
- Affects all aspects of care.
- Encourage healthy diet and increased activity with goal of weight loss.
DVT Prophylaxis: Lovenox
Code Status: Full
Anticipated Discharge: 24 - 48 hours
Subjective/Interval History
-
Date of Service: February 17, 2024
Objective Data
-
Labs:
Laboratory Results
02/17/24 02/17/24 02/17/24
02:41 04:00 05:40
WBC 13.0 H
Hgb 9.4 L D
Hct 27.4 L
Plt Count 227 D
Sodium 126 L Cancelled 125 L
Potassium 4.5 Cancelled 4.4
Chloride 101 Cancelled 99
Carbon Dioxide 16 L Cancelled 19 L
BUN 23 H Cancelled 24 H
Creatinine 0.9 Cancelled 0.9
Glucose 280 H Cancelled 276 H
Calcium 8.7 Cancelled 8.7
02/17/24 02/17/24
08:00 10:00
WBC
Hgb
Hct
Plt Count
Sodium Cancelled Cancelled
Potassium Cancelled Cancelled
Chloride Cancelled Cancelled
Carbon Dioxide Cancelled Cancelled
BUN Cancelled Cancelled
Creatinine Cancelled Cancelled
Glucose Cancelled Cancelled
Calcium Cancelled Cancelled
Vital Signs:
Vital Signs
Temp Pulse Resp BP Pulse Ox
98.1 F 76 16 166/59 94
02/17/24 11:00 02/17/24 10:00 02/17/24 10:00 02/17/24 10:00 02/17/24 10:00
I&O
02/16/24 02/17/24 02/18/24
06:59 06:59 06:59
Intake Total 2848 / 2848
Output Total 1350 / 1350
Balance 1498 / 1498
--- NOTE | 2024-02-17 17:02 | W.PN.NEPH.PH ---
Today's Communication / Plan
-
sasmca if sodium still low tomorrow
Assessment/Plan
-
Impression
Hyperglycemia
Falls
Diarrhea
AG metabolic acidosis (21) with corrected Sodium
Renal transplant with baseline creatinine of 0.7 (2013)
Acute kidney and
Pseudo hyponatremia
Hyperkalemia
Hypertension
Diabetes
PVD
History of sarcoidosis
Hypercalcemia
ASCVD
Asthma
Anxiety and depression
Plan:
VIANEY:resolved cr normal at 0.9
Hyperkalemia-resolved
ok to resume ARB when BP demands
Hyponatremia persisted despite improvement of DKA
corrected sodium is at 129, monitor for now and may need samsca tomorrow if still low
Tac level is low, pt reports of possibly throwing up meds prior to arrival
recheck trough tomorrow
-Maintain mycophenolate and tacrolimus at current dose
d/w pt and nursing
-
-
Date of Service: February 17, 2024
CC / HPI / ROS
-
Chief Complaint:
hypoantremia, K txp
History of Present Illness:
sodium low corrected 129, Bp are high
low grade fever last night, BG in 200 range
WBC improving
Review of Systems:
no cp or sob
drowsy during visit
Labs
-
Labs:
WBC 13.0 10^3/uL (4.8-10.8) H 02/17/24 05:40
RBC 3.42 10^6/uL (4.20-5.40) L 02/17/24 05:40
Hgb 9.4 g/dL (12.0-16.0) L D 02/17/24 05:40
Hct 27.4 % (37.0-47.0) L 02/17/24 05:40
Plt Count 227 10^3/uL (130-400) D 02/17/24 05:40
Sodium Cancelled 02/17/24 10:00
Potassium Cancelled 02/17/24 10:00
Chloride Cancelled 02/17/24 10:00
Carbon Dioxide Cancelled 02/17/24 10:00
BUN Cancelled 02/17/24 10:00
Creatinine Cancelled 02/17/24 10:00
eGFR Cancelled 02/17/24 10:00
Glucose Cancelled 02/17/24 10:00
Calcium Cancelled 02/17/24 10:00
Phosphorus 2.7 mg/dl (2.5-4.5) 02/17/24 05:40
Albumin 3.8 g/dl (3.5-5.0) 02/16/24 03:10
Physical Exam
-
Vital Signs:
Vital Signs
Temp Pulse Resp BP Pulse Ox
99.3 F 73 23 160/82 95
02/17/24 15:00 02/17/24 16:43 02/17/24 16:43 02/17/24 16:43 02/17/24 16:00
Cardiovascular:: Regular rate and rhythm
Respiratory:: Bilateral: CTA
Lung Excursion:: Normal
Abdomen:: Nontender and Soft
Extremity Edema:: None: Bilateral:
Bowers Catheter: No
[2024-02-17] MEDS: LOVENOX 40 MG SC (17:38)
[2024-02-17] MEDS: NOVOLOG FLEXPEN-MODERATE RESISTANCE SC (17:39)
[2024-02-17 17:41] LABS: Glucose - Point of Care 107 mg/dl (70-99)
--- NOTE | 2024-02-17 18:16 | PTCARENOTE ---
OOB most of the day, asst 1. AAO, rings appropriately- chair alarm on. LCTA, 95% RAIR. SR on tele BP 150-160/80-90s. Insulin gtt discontinued today. Appetite good, eating 100% meals. Insulin coverage per orders. Stress incontinent- off
purewick all day- wearing own pad. Denies pain today. visited today.
[2024-02-17] MEDS: ASPIR LOW (ENTERIC COATED) 81 MG PO (20:08)
[2024-02-17] MEDS: LIPITOR 80 MG PO (20:09)
[2024-02-17 20:59] LABS: Glucose - Point of Care 254 mg/dl (70-99)
--- NOTE | 2024-02-17 21:13 | PTCARENOTE ---
Pt received sitting up in chair requesting to go back to bed. With assist of 1-2 pt back in bed. Weak legs on ambulation. AAOx3. Denies pain or discomfort. VSS. Afebrile. SR on CM. POX 95% on RA. KEANE, orthopneic. Purewick changed and pericare
provided. Rest of assessment as documented. Bed alarm on and working. Call birch remains within reach. Will continue to monitor.
[2024-02-18] VITALS (12 sets, daily range): BP systolic 102–193; BP diastolic 52–79; PULSE 87–91; BMI 38.0
[2024-02-18 07:13] LABS: Glucose - Point of Care 266 mg/dl (70-99)
[2024-02-18] MEDS: PROGRAF 4 MG PO ×2 (07:46→21:29)
[2024-02-18] MEDS: MYFORTIC DELAYED REL. 360 MG PO ×2 (07:46→21:31)
[2024-02-18] MEDS: APRESOLINE 50 MG PO ×2 (07:46→21:31)
[2024-02-18] MEDS: COREG 6.25 MG PO ×2 (07:47→21:31)
[2024-02-18] MEDS: IMODIUM PO ×2 (07:47→08:29)
[2024-02-18] MEDS: LEXAPRO 20 MG PO (07:47)
[2024-02-18] MEDS: LANTUS 0.38 UNITS SC (07:48)
[2024-02-18 08:02] LABS: Hematocrit 28.9 % (37.0-47.0); Hemoglobin 9.6 g/dL (12.0-16.0); Mean Corp Hgb Conc. 33.2 g/dL (33.0-37.0); Mean Corpuscular Hgb 27.2 pg (27.0-31.0); Mean Corpuscular Volume 81.9 fL (81.0-99.0); Mean Platelet Volume 10.7 fL (7.4-10.4); Platelet Count 241 10^3/uL (130-400); Red Blood Cell Count 3.53 10^6/uL (4.20-5.40); Red Cell Dist. Width 13.5 % (11.5-14.5); White Blood Cell Count 11.2 10^3/uL (4.8-10.8)
[2024-02-18] MEDS: SYMBICORT 160/4.5 MCG INHALER 1 PUFF INH ×2 (08:08→17:50)
[2024-02-18] MEDS: NOVOLOG FLEXPEN 25 UNITS SC ×2 (08:40→11:28)
[2024-02-18] MEDS: NOVOLOG FLEXPEN-MODERATE RESISTANCE 5 UNITS SC (08:40)
[2024-02-18 08:47] LABS: Blood Urea Nitrogen 24 mg/dl (7-17); Calcium 8.9 mg/dl (8.4-10.2); Carbon Dioxide 20 mmol/L (22-30); Chloride 101 mmol/L (98-107); Estimated Creatinine Clearance 70 ml/min; Glucose 291 mg/dl (70-99); Potassium 4.8 mmol/L (3.5-5.1); Sodium 127 mmol/L (135-145); eGFR > 60.00
--- NOTE | 2024-02-18 08:55 | W.PN.CARDCBS ---
Today's Communication / Plan
-
Continue medical regimen of carvedilol, low-dose aspirin, hydralazine and atorvastatin.
As outpatient we can consider pharmacologic stress test.
Will sign off, please call us back if needed.
Impression / Plan
-
PCP: Dr. Redd Caicedo
Primary Kitchen Lead: Dr. Monika Garza
Nephrology: Dr. Holder locally, transplant center is [facility]
Impression:
Presented 02/16/2024 with fall, weakness, poor appetite and intermittent diarrhea
DKA, hemoglobin A1c 12.6%
Hyponatremia
Hyperkalemia, resolved
VIANEY, resolved
Abnormal troponin, peaked at 0.360
CVA/TIA/dysarthria 05/30/22
Carotid artery stenosis
s/p Left CEA 06/01/22
Chronic HFpEF
CKD s/p donor transplant at [facility] 09/2013
Sarcoid
HTN
DM 2
Hyperlipidemia
Asthma
Chronic back pain
Anxiety
Hypomagnesemia, chronic
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
Left distal radius ORIF 11/2023
Nuclear stress test 12/2011: without ischemia, small fixed anterior segment and apical segment� consistent with soft tissue attenuation. EF 60%
Echo 12/2014: EF 60%, trace MR, trace TR, PAP 24-29mmHg, mod LVH
Echo 10/29/21: EF 55-60%, mild to mod LVH
Echo 02/17/2024: LVEF 60-65%, moderate concentric LVH, no wall motion abnormality, no significant valvular disease.
Plan:
-Presented 02/16/2024 with fall, weakness, poor appetite and intermittent diarrhea and was found to be in DKA with hemoglobin A1c 12.6%
Treatment of DKA per primary service, nurse educator consulted
-Abnormal troponin, peaked at 0.36. EKG without ischemic changes and patient has denied chest pain and SOB.
Suspect nonischemic myocardial injury secondary to DKA, VIANEY, electrolyte derangements
No wall motion abnormality on echocardiogram
Continue medical regimen of carvedilol, low-dose aspirin, hydralazine and atorvastatin.
As outpatient we can consider pharmacologic stress test.
-History of renal transplant on immunosuppression with CellCept and Prograf.
Resolved VIANEY and improved electrolyte derangement.
Nephrology following
-Given falls at home needs PT OT evaluation
Will sign off, please call us back if needed.
HPI 02/17/2024:
Patient is a 69-year-old female with a past medical history of heart failure with preserved ejection fraction, intermittent Mobitz 2 heart block, TIA, carotid artery stenosis status post left CEA, hyperlipidemia, asthma, kidney transplant
chronically maintained on tacrolimus and mycophenolate, diabetes maintained on insulin therapy, and hypertension maintained on losartan hydralazine Aldactone and carvedilol. She presented to the emergency room last evening after sustaining a fall
at home. The patient has been feeling poorly for several weeks noting generalized weakness poor appetite and intermittent diarrhea. She also has complained of including cough and sore throat. Her blood sugars have been poorly controlled and were
609 on presentation, hemoglobin A1c 12.6%. She was also noted to be hyponatremic with sodium of 125 and mild VIANEY with creatinine of 1.2. Chest x-ray showed no acute cardiopulmonary abnormality. Head CT showed no acute intracranial abnormality
with chronic small vessel disease which is stable. Cardiology being asked to see patient as she was found to have abnormal troponin which peaked at 0.360. EKG showed sinus rhythm at 86 bpm without evidence of ischemia.
At time of this evaluation patient reports she is feeling better. She is sitting up in chair in her room and denies chest pain, shortness of breath, dizziness, lightheadedness, palpitations, edema or orthopnea/PND.
Progress Note - Kitchen Lead
Subjective
Date of Service: February 18, 2024
Well-appearing, sitting up in bed. No acute distress. She denies chest pain shortness of breath and palpitations.
Objective
Labs:
02/18/24 07:44
02/18/24 07:44
Labs
Hgb 9.6 g/dL (12.0-16.0) L 02/18/24 07:44
Hct 28.9 % (37.0-47.0) L 02/18/24 07:44
Plt Count 241 10^3/uL (130-400) 02/18/24 07:44
Sodium 127 mmol/L (135-145) L 02/18/24 07:44
Potassium 4.8 mmol/L (3.5-5.1) 02/18/24 07:44
BUN 24 mg/dl (7-17) H 02/18/24 07:44
Creatinine 0.9 mg/dL (0.6-1.0) 02/18/24 07:44
Glucose 291 mg/dl (70-99) H 02/18/24 07:44
Troponins
02/16/24 02/16/24 02/16/24
09:40 14:10 20:45
Troponin I 0.269 H* 0.248 H* 0.360 H* D
02/17/24
05:40
Troponin I 0.331 H*
Vital Signs and I&O:
Vital Signs
Temp Pulse Resp BP Pulse Ox
98.5 F 82 18 158/63 94
02/18/24 07:01 02/18/24 08:11 02/18/24 08:11 02/18/24 07:47 02/18/24 08:11
Vital Signs
Temp Pulse Resp BP Pulse Ox
98.5 F 82 18 158/63 94
02/18/24 07:01 02/18/24 08:11 02/18/24 08:11 02/18/24 07:47 02/18/24 08:11
Intake & Output
02/16/24 02/17/24 02/18/24 02/19/24
06:59 06:59 06:59 06:59
Intake Total 2848 / 2848 1720 / 1720
Output Total 1350 / 1350 1400 / 1400
Balance 1498 / 1498 320 / 320
Physical Exam
Physical Exam
Elderly woman sitting up in bed, no acute distress
Regular rate and rhythm with normal S1 and S2, no S3 no S4, there is a grade 1/6 apical holosystolic murmur and no rubs, normal PMI.
Lungs clear to auscultation bilaterally
Abdomen soft nontender nondistended with normoactive bowel sounds
Extremities show trace pretibial edema bilaterally
--- NOTE | 2024-02-18 10:23 | W.PN.HOSP.TC ---
Today's Communication/Plan
-
Increase doses of insulin. Restart ARB. Increase SSRI.
Assessment / Plan
Assessment / Plan
Physical exam:
General: Acutely ill
HEENT: Normocephalic, Atraumatic and Moist Mucous Membranes
Respiratory: Clear to Auscultation; Negative Wheezes, Rales or Rhonchi
Cardiac: Regular Rhythm and S1/S2
GI: Soft, Nontender and Nondistended
Musculoskeletal: No Clubbing, No Cyanosis and No Edema
Neuro: Awake, Alert and Oriented, generalized weakness.
Psych: Depressed mood, no suicidal thoughts or ideations.
A/P:
Impression:
Patient is a 69y F with PMH significant for DM, CKD s/p renal transplant and chronic diarrhea who presents to ED for evaluation s/p fall at home.
DKA.
VIANEY on CKD 2.
Hyperkalemia
Pseudohyponatremia
Hypercalcemia
Leukocytosis
Troponin elevation secondary to nonischemic cardiac injury in the settings of DKA.
Falls at home
Conditions prior to admission:
IDDM
Renal transplant
Immunosuppression with Prograf and CellCept.
ASCVD/carotid artery disease.
Essential hypertension
Asthma.
Obesity with BMI of 36.
Chronic diarrhea
Anxiety/depression.
Plan:
Poorly controlled diabetes globin A1c 12 (hemoglobin A1c 4/ at 12)
DKA. Corrected sodium with hyperglycemia, patient with elevated anion gap, elevated serum acetone level.
Blood sugars improved overall but still not at goal, 291 this morning
Initiated on IV insulin drip with now normalized anion gap.
Transition to subcutaneous insulin Lantus/NovoLog adjusting dose daily. At home Tresiba 36 units twice a day and Humalog 24 units AC with last hemoglobin A1c 12.8. Currently hemoglobin A1c 12.6 and on Lantus 38 units bid and 25 units of NovoLog
AC. Increase Lantus to 40 units bid and NovoLog to 30 units AC. Monitor blood sugars and adjust medications accordingly.
Advanced to carbohydrate controlled diet
Continue basal bolus protocol.
Transfer to telemetry today
PT OT reeval upon transfer
VIANEY on CKD 2. Renal transplant status
Creatinine 0.9 today
renal transplant on immunosuppression with CellCept and Prograf.
Intravascularly depleted given DKA, polyuria, diarrhea.
Hyperkalemia is a function of hyperglycemia and acidosis.
Acidosis and hyperkalemia improved with IV fluids and insulin.
Continue bladder scan rule out retention (patient reports incontinence)
Hold valsartan and spironolactone
Continue CellCept and Prograf. Tacrolimus level 2.1
Leukocytosis, likely stress-induced with acidosis. Improving
WBC down from 20 to 11.2 today
Afebrile with no specific complaints suggestive of infection.
Suspect polyuria secondary to hyperglycemia
Urinalysis not consistent with UTI
Blood cultures negative today
Chest x-ray with no acute abnormalities
Monitor closely off antibiotics while she is on immunosuppression.
Hypertension-uncontrolled
Hydralazine 10 mg IV x 1 now
Restart losartan 50 mg twice a day today on 02/17
Continue hydralazine 50 mg twice a day
Continue carvedilol 6.25 mg twice a day
Holding spironolactone
Monitor blood pressure and adjust medications according
Hyponatremia
Improving
Na 127 and corrected sodium 132
Nephrology on board
ASCVD/carotid disease
History of TIA
Continue aspirin and statin
Troponin elevation secondary to nonischemic cardiac injury in the settings of DKA peaked at 0.3
Most recent echo 2021 with preserved biventricular function. No documented CAD.
ECG normal sinus rhythm without ischemic changes
Echocardiogram unremarkable and no changes compared to 2021 echocardiogram
Cardiology evaluation appreciated and they signed off today on 02/17.
Falls at home
Neurologic examination with no focal abnormalities
CT scan of the head with no acute abnormalities.
Physical therapy evaluation.
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
Asthma without Exacerbation
- Continue inhaler regimen / albuterol PRN.
Anxiety / Depression
- Patient tearful / depressed in the ED.
- Continue Lexapro. Will increase from 20 to 30 mg daily.
Obesity due to excess calories
- Affects all aspects of care.
- Encourage healthy diet and increased activity with goal of weight loss.
DVT Prophylaxis: Lovenox
Code Status: Full
Anticipated Discharge: 24 - 48 hours
Subjective/Interval History
-
Date of Service: February 18, 2024
Patient seen and examined today. No chest pain or shortness of breath. Complains of being tired overall.
Objective Data
-
Labs:
Laboratory Results
02/18/24
07:44
WBC 11.2 H
Hgb 9.6 L
Hct 28.9 L
Plt Count 241
Sodium 127 L
Potassium 4.8
Chloride 101
Carbon Dioxide 20 L
BUN 24 H
Creatinine 0.9
Glucose 291 H
Calcium 8.9
Vital Signs:
Vital Signs
Temp Pulse Resp BP Pulse Ox
98.5 F 73 24 140/52 94
02/18/24 07:01 02/18/24 10:00 02/18/24 10:00 02/18/24 10:00 02/18/24 10:11
I&O
02/17/24 02/18/24 02/19/24
06:59 06:59 06:59
Intake Total 2848 / 2848 1720 / 1720 360 / 360
Output Total 1350 / 1350 1400 / 1400 350 / 350
Balance 1498 / 1498 320 / 320 10 / 10
--- NOTE | 2024-02-18 11:21 | W.PN.NEPH.PH ---
Today's Communication / Plan
-
follow labs
Assessment/Plan
-
Impression
Hyperglycemia
Falls
Diarrhea
AG metabolic acidosis (21) with corrected Sodium
Renal transplant with baseline creatinine of 0.7 (2013)
Acute kidney and
Pseudo hyponatremia
Hyperkalemia
Hypertension
Diabetes
PVD
History of sarcoidosis
Hypercalcemia
ASCVD
Asthma
Anxiety and depression
Plan:
VIANEY:resolved cr normal at 0.9
ok to resume ARB when BP demands
Hyponatremia improving, monitor for now with FR , corrected sodium is 132
Tac level is low 2.1, pt reports of possibly throwing up meds prior to arrival
recheck trough today, await for results
-Maintain mycophenolate and tacrolimus at current dose
d/w pt and nursing
-
-
Date of Service: February 18, 2024
CC / HPI / ROS
-
Chief Complaint:
hypoantremia, K txp
History of Present Illness:
sodium low corrected 132, Bp are stable
BG in 200 range
WBC improving
Review of Systems:
no cp or sob
drowsy during visit
no fever
Labs
-
Labs:
WBC 11.2 10^3/uL (4.8-10.8) H 02/18/24 07:44
RBC 3.53 10^6/uL (4.20-5.40) L 02/18/24 07:44
Hgb 9.6 g/dL (12.0-16.0) L 02/18/24 07:44
Hct 28.9 % (37.0-47.0) L 02/18/24 07:44
Plt Count 241 10^3/uL (130-400) 02/18/24 07:44
Sodium 127 mmol/L (135-145) L 02/18/24 07:44
Potassium 4.8 mmol/L (3.5-5.1) 02/18/24 07:44
Chloride 101 mmol/L (98-107) 02/18/24 07:44
Carbon Dioxide 20 mmol/L (22-30) L 02/18/24 07:44
BUN 24 mg/dl (7-17) H 02/18/24 07:44
Creatinine 0.9 mg/dL (0.6-1.0) 02/18/24 07:44
eGFR > 60.00 02/18/24 07:44
Glucose 291 mg/dl (70-99) H 02/18/24 07:44
Calcium 8.9 mg/dl (8.4-10.2) 02/18/24 07:44
Phosphorus 2.7 mg/dl (2.5-4.5) 02/17/24 05:40
Albumin 3.8 g/dl (3.5-5.0) 02/16/24 03:10
Physical Exam
-
Vital Signs:
Vital Signs
Temp Pulse Resp BP Pulse Ox
98.5 F 73 24 140/52 94
02/18/24 07:01 02/18/24 10:00 02/18/24 10:00 02/18/24 10:00 02/18/24 10:21
Cardiovascular:: Regular rate and rhythm
Respiratory:: Bilateral: CTA
Lung Excursion:: Normal
Abdomen:: Nontender and Soft
Extremity Edema:: None: Bilateral:
Bowers Catheter: No
[2024-02-18] MEDS: NOVOLOG FLEXPEN-MODERATE RESISTANCE 9 UNITS SC (11:28)
[2024-02-18 11:44] LABS: Glucose - Point of Care 379 mg/dl (70-99)
[2024-02-18] MEDS: APRESOLINE 10 MG IV (15:02)
[2024-02-18] MEDS: COZAAR 50 MG PO (15:03)
--- NOTE | 2024-02-18 15:24 | PTCARENOTE ---
Assumed care of Pt at shift change. Resting comfortably in bed. NSR on monitor; VSS; Bed bath performed, pericare provided and purewick exchanged. OOB to chair; Noted elevated BP later in shift, 170-180's SBP. Provider notified - Losartan
restarted from home med list. Midline catheter with no blood return and difficult flush - VAT notified and midline removed. Will continue to monitor and assess.
[2024-02-18 17:07] LABS: Glucose - Point of Care 466 mg/dl (70-99)
[2024-02-18 18:37] LABS: Glucose 425 mg/dl (70-99)
[2024-02-18] MEDS: LOVENOX 40 MG SC (18:40)
[2024-02-18] MEDS: NOVOLOG FLEXPEN 30 UNITS SC (18:40)
[2024-02-18] MEDS: NOVOLOG FLEXPEN-MODERATE RESISTANCE 11 UNITS SC (18:40)
[2024-02-18 20:03] LABS: Glucose - Point of Care 428 mg/dl (70-99)
--- NOTE | 2024-02-18 20:15 | PTCARENOTE ---
Patient transferred from IMU. Patient AAO x3, on RA, in no acute distress. Pressure injury to left buttocks with foam dressing c/d/i. Bed alarm is on. Patient oriented to room and call birch within reach.
[2024-02-18 20:44] LABS: Glucose 418 mg/dl (70-99)
[2024-02-18] MEDS: LANTUS 0.4 UNITS SC (21:29)
[2024-02-18] MEDS: LIPITOR 80 MG PO (21:31)
[2024-02-18] MEDS: ASPIR LOW (ENTERIC COATED) 81 MG PO (21:32)
[2024-02-19] VITALS (8 sets, daily range): BP systolic 108–163; BP diastolic 45–76; PULSE 61–64; BMI 38.3
[2024-02-19] MEDS: COZAAR 50 MG PO ×2 (00:28→08:05)
[2024-02-19] MEDS: TYLENOL 650 MG PO ×2 (00:29→20:12)
[2024-02-19] MEDS: SYMBICORT 160/4.5 MCG INHALER 1 PUFF INH ×2 (07:26→19:50)
[2024-02-19 07:42] LABS: Glucose - Point of Care 267 mg/dl (70-99)
[2024-02-19 08:01] LABS: Glucose - Point of Care 249 mg/dl (70-99)
[2024-02-19] MEDS: LANTUS 0.4 UNITS SC ×2 (08:02→20:17)
[2024-02-19 08:03] LABS: Hematocrit 28.9 % (37.0-47.0); Hemoglobin 9.5 g/dL (12.0-16.0); Mean Corp Hgb Conc. 32.9 g/dL (33.0-37.0); Mean Corpuscular Hgb 27.3 pg (27.0-31.0); Mean Platelet Volume 10.6 fL (7.4-10.4); Platelet Count 271 10^3/uL (130-400); Red Blood Cell Count 3.48 10^6/uL (4.20-5.40); Red Cell Dist. Width 13.6 % (11.5-14.5); White Blood Cell Count 10.4 10^3/uL (4.8-10.8)
[2024-02-19] MEDS: NOVOLOG FLEXPEN-MODERATE RESISTANCE 3 UNITS SC (08:03)
[2024-02-19] MEDS: NOVOLOG FLEXPEN 30 UNITS SC ×3 (08:03→18:09)
[2024-02-19] MEDS: PROGRAF 4 MG PO ×2 (08:04→20:11)
[2024-02-19] MEDS: LEXAPRO 30 MG PO (08:05)
[2024-02-19] MEDS: IMODIUM 2 MG PO (08:05)
[2024-02-19] MEDS: COREG 6.25 MG PO ×2 (08:05→20:11)
[2024-02-19] MEDS: APRESOLINE 50 MG PO (08:05)
[2024-02-19 08:36] LABS: Blood Urea Nitrogen 30 mg/dl (7-17); Calcium 9.2 mg/dl (8.4-10.2); Carbon Dioxide 22 mmol/L (22-30); Chloride 98 mmol/L (98-107); Estimated Creatinine Clearance 53 ml/min; Glucose 252 mg/dl (70-99); Potassium 4.5 mmol/L (3.5-5.1); Sodium 127 mmol/L (135-145)
--- NOTE | 2024-02-19 09:12 | W.PN.HOSP.TC ---
Addendum entered and electronically signed by Kieran Jensen MD 02/19/24 16:55:
Nephro holding ARB today and increasing Tacrolimus.
Original Note:
Today's Communication/Plan
-
Continue current insulin regimen. Discharge planning in progress.
Assessment / Plan
Assessment / Plan
Physical exam:
General: No acute distress
HEENT: Normocephalic, Atraumatic and Moist Mucous Membranes
Respiratory: Clear to Auscultation; Negative Wheezes, Rales or Rhonchi
Cardiac: Regular Rhythm and S1/S2
GI: Soft, Nontender and Nondistended
Musculoskeletal: No Clubbing, No Cyanosis and No Edema
Neuro: Awake, Alert and Oriented, generalized weakness.
Psych: Calm, mood is improved. Normal judgment and insight.
A/P:
Impression:
Patient is a 69y F with PMH significant for DM, CKD s/p renal transplant and chronic diarrhea who presents to ED for evaluation s/p fall at home.
DKA.
VIANEY on CKD 2.
Hyperkalemia
Pseudohyponatremia
Hypercalcemia
Leukocytosis
Troponin elevation secondary to nonischemic cardiac injury in the settings of DKA.
Falls at home
Conditions prior to admission:
IDDM
Renal transplant
Immunosuppression with Prograf and CellCept.
ASCVD/carotid artery disease.
Essential hypertension
Asthma.
Obesity with BMI of 36.
Chronic diarrhea
Anxiety/depression.
Plan:
Poorly controlled diabetes globin A1c 12 (hemoglobin A1c 10/25 at 12)
DKA. Corrected sodium with hyperglycemia, patient with elevated anion gap, elevated serum acetone level.
Initiated on IV insulin drip with now normalized anion gap.
Off insulin drip now.
Blood sugars improved overall but still not at goal, 252 this morning
Transitioned to subcutaneous insulin Lantus/NovoLog adjusting dose daily. At home Tresiba 36 units twice a day and Humalog 24 units AC with last hemoglobin A1c 12.8. Currently hemoglobin A1c 12.6 and on Lantus 38 units bid and 25 units of NovoLog
AC. Increased yesterday Lantus to 40 units bid and NovoLog to 30 units AC. No more increase today to allow changes from yesterday to take place. Monitor blood sugars and adjust medications accordingly.
Advanced to carbohydrate controlled diet
Continue basal bolus protocol.
Discussed with attending RN.
PT OT
CM for D/C to rehab disposition
VIANEY on CKD 2. Renal transplant status
Creatinine 1.2 today
renal transplant on immunosuppression with CellCept and Prograf.
Intravascularly depleted given DKA, polyuria, diarrhea.
Hyperkalemia is a function of hyperglycemia and acidosis.
Acidosis and hyperkalemia improved with IV fluids and insulin.
Continue bladder scan rule out retention (patient reports incontinence)
Hold spironolactone
Continue CellCept and Prograf. Tacrolimus level 2.1
Leukocytosis, likely stress-induced with acidosis. Improving
WBC down from 20 to 10.4 today
Afebrile with no specific complaints suggestive of infection.
Suspect polyuria secondary to hyperglycemia
Urinalysis not consistent with UTI
Blood cultures negative today
Chest x-ray with no acute abnormalities
Monitor closely off antibiotics while she is on immunosuppression.
Hypertension- better controlled today
Cont losartan 50 mg twice a day
Continue hydralazine 50 mg twice a day
Continue carvedilol 6.25 mg twice a day
Holding spironolactone
Monitor blood pressure and adjust medications according
Hyponatremia
Improving
Na 127 and corrected sodium 132
Nephrology on board
ASCVD/carotid disease
History of TIA
Continue aspirin and statin
Troponin elevation secondary to nonischemic cardiac injury in the settings of DKA peaked at 0.3
Most recent echo 2021 with preserved biventricular function. No documented CAD.
ECG normal sinus rhythm without ischemic changes
Echocardiogram unremarkable and no changes compared to 2021 echocardiogram
Cardiology evaluation appreciated and they signed off today on 02/17.
Falls at home
Neurologic examination with no focal abnormalities
CT scan of the head with no acute abnormalities.
Physical therapy evaluation.
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
Asthma without Exacerbation
- Continue inhaler regimen / albuterol PRN.
Anxiety / Depression
- Patient tearful / depressed in the ED.
- Continue Lexapro. Increased to 30 mg daily.
Obesity due to excess calories
- Affects all aspects of care.
- Encourage healthy diet and increased activity with goal of weight loss.
DVT Prophylaxis: Lovenox
Code Status: Full
Anticipated Discharge: 24 - 48 hours
Subjective/Interval History
-
Date of Service: February 19, 2024
Patient alert oriented today. Does not voice any new complaints. No abdominal pain nausea or vomiting. Remains afebrile
Objective Data
-
Labs:
Laboratory Results
02/19/24
07:55
WBC 10.4
Hgb 9.5 L
Hct 28.9 L
Plt Count 271
Sodium 127 L
Potassium 4.5
Chloride 98
Carbon Dioxide 22
BUN 30 H
Creatinine 1.2 H
Glucose 252 H
Calcium 9.2
Vital Signs:
Vital Signs
Temp Pulse Resp BP Pulse Ox
98.1 F 58 16 139/56 100
02/19/24 07:01 02/19/24 07:29 02/19/24 07:29 02/19/24 07:01 02/19/24 07:29
I&O
02/18/24 02/19/24 02/20/24
06:59 06:59 06:59
Intake Total 1720 / 1720 720 / 720
Output Total 1400 / 1400 350 / 350
Balance 320 / 320 370 / 370
[2024-02-19] MEDS: MYFORTIC DELAYED REL. 360 MG PO ×2 (09:52→20:11)
[2024-02-19 11:44] LABS: Glucose - Point of Care 333 mg/dl (70-99)
[2024-02-19] MEDS: NOVOLOG FLEXPEN-MODERATE RESISTANCE 7 UNITS SC (12:52)
--- NOTE | 2024-02-19 15:06 | W.PN.NEPH.PH ---
Today's Communication / Plan
-
follow labs , hold ARB
prn IVF
increase Tac dose
Assessment/Plan
-
Impression
Hyperglycemia
Falls
Diarrhea
AG metabolic acidosis (21) with corrected Sodium
Renal transplant with baseline creatinine of 0.7 (2013)
Acute kidney and
Pseudo hyponatremia
Hyperkalemia
Hypertension
Diabetes
PVD
History of sarcoidosis
Hypercalcemia
ASCVD
Asthma
Anxiety and depression
Plan:
VIANEY: cr is slightly up 1.2
no clear etiology, follow bladder scan, possible relative hypotension , hold ARB
consider prn IVF as she cont to have hyperglycemia
Hyponatremia improving, monitor for now with FR , corrected sodium is 132
Tac level is low 2.1, pt reports of possibly throwing up meds prior to arrival
repeat level 3.4 02/17, dose increased to 4.5mg BID and recheck level on Tuesday
-Maintain mycophenolate at current dose
d/w pt and nursing
-
-
Date of Service: February 19, 2024
CC / HPI / ROS
-
Chief Complaint:
hypoantremia, K txp
History of Present Illness:
sodium low corrected 132, Bp are stable
BG in 200-400 range
WBC improving
Review of Systems:
no cp or sob
eating well
no fever
Labs
-
Labs:
WBC 10.4 10^3/uL (4.8-10.8) 02/19/24 07:55
RBC 3.48 10^6/uL (4.20-5.40) L 02/19/24 07:55
Hgb 9.5 g/dL (12.0-16.0) L 02/19/24 07:55
Hct 28.9 % (37.0-47.0) L 02/19/24 07:55
Plt Count 271 10^3/uL (130-400) 02/19/24 07:55
Sodium 127 mmol/L (135-145) L 02/19/24 07:55
Potassium 4.5 mmol/L (3.5-5.1) 02/19/24 07:55
Chloride 98 mmol/L (98-107) 02/19/24 07:55
Carbon Dioxide 22 mmol/L (22-30) 02/19/24 07:55
BUN 30 mg/dl (7-17) H 02/19/24 07:55
Creatinine 1.2 mg/dL (0.6-1.0) H 02/19/24 07:55
eGFR 49.00 02/19/24 07:55
Glucose 252 mg/dl (70-99) H 02/19/24 07:55
Calcium 9.2 mg/dl (8.4-10.2) 02/19/24 07:55
Phosphorus 2.7 mg/dl (2.5-4.5) 02/17/24 05:40
Albumin 3.8 g/dl (3.5-5.0) 02/16/24 03:10
Physical Exam
-
Vital Signs:
Vital Signs
Temp Pulse Resp BP Pulse Ox
98.1 F 58 16 139/56 100
02/19/24 07:01 02/19/24 07:29 02/19/24 07:29 02/19/24 07:01 02/19/24 10:07
Cardiovascular:: Regular rate and rhythm
Respiratory:: Bilateral: CTA
Lung Excursion:: Normal
Abdomen:: Nontender and Soft
Extremity Edema:: None: Bilateral: (trace)
Bowers Catheter: No
[2024-02-19 16:53] LABS: Glucose - Point of Care 254 mg/dl (70-99)
[2024-02-19] MEDS: NOVOLOG FLEXPEN-MODERATE RESISTANCE 5 UNITS SC (18:08)
[2024-02-19] MEDS: LOVENOX 40 MG SC (18:09)
[2024-02-19 20:03] LABS: Glucose - Point of Care 191 mg/dl (70-99)
[2024-02-19] MEDS: APRESOLINE PO (20:03)
[2024-02-19] MEDS: PROGRAF 0.5 MG PO (20:13)
[2024-02-19] MEDS: LIPITOR 80 MG PO (20:15)
[2024-02-19] MEDS: ASPIR LOW (ENTERIC COATED) 81 MG PO (20:15)
[2024-02-20] VITALS (7 sets, daily range): BP systolic 95–144; BP diastolic 47–75; PULSE 70; O2SAT 98; BMI 38.1
[2024-02-20 03:05] LABS: Glucose - Point of Care 122 mg/dl (70-99)
[2024-02-20] MEDS: SYMBICORT 160/4.5 MCG INHALER 1 PUFF INH ×2 (07:24→19:50)
[2024-02-20 08:11] LABS: Glucose - Point of Care 176 mg/dl (70-99)
--- NOTE | 2024-02-20 08:37 | PN.DE.MGMTRT ---
Insulin Management
- -
02/20/2024 Diabetes Management F/U:
Patient admitted 02/15 s/p fall at home. PMH CHF, HTN, HCL, asthma, diabetes, renal failure with transplant, hypothyroid, depression, carotid artery stenosis, migraine, sarcoidosis, diverticulitis, pancreatitis, IBS. Prior to admission patient was
taking Tresiba 36 units BID with Humalog 24 units AC.
States she was diagnosed at age 22, did take oral diabetes meds for about 5 years then switched to insulin. She currently sees Dr. Sallie Duffy endocrine for diabetes management patient states Dr. Duffy told her she was probably
misdiagnosed and has type 1 diabetes.
Glucose on admission 609. 8/15 AM labs indicate GAP of 18 insulin infusion started. Current A1C 12.6%, Last A1C 12.8% October 2023, Cr 1, eGFR >60, BUN 31.
Patient is awake, A/O x3, sitting up in chair, offers no complaints, able to discuss diabetes management.
Pt was transitioned from IV insulin to subcutaneous insulin on 02/17.
02/18 premeal Glucose remained elevated 254 to 333, requiring 3-7 units of additional corrective insulin, fasting 176 this AM.
Will increase AC NovoLog to 33 units. Cont Lantus 40 units BID and moderate corrective with meals
Diabetes History
- -
Type of Diabetes: 2 requiring insulin
Pre-Admission Diabetes Regimen
Lab Results
Hemoglobin A1c 12.6 % (4.0-5.6) H 02/16/24 11:45
Insulin Pump Settings
IP Diabetes Regimen
02/19/24 02/19/24 02/19/24
11:42 16:51 20:01
POC Glucose 333 H 254 H 191 H
02/20/24 02/20/24
03:03 08:10
POC Glucose 122 H 176 H
Meal type: Dinner
Meal type: Lunch
Meal type: Breakfast
Amount consumed: 75%
Amount consumed: 50%
Amount consumed: 100%
Patient Education
[2024-02-20 09:10] LABS: Blood Urea Nitrogen 43 mg/dl (7-17); Calcium 9.2 mg/dl (8.4-10.2); Carbon Dioxide 19 mmol/L (22-30); Chloride 101 mmol/L (98-107); Estimated Creatinine Clearance 32 ml/min; Glucose 161 mg/dl (70-99); Potassium 4.8 mmol/L (3.5-5.1); Sodium 127 mmol/L (135-145); eGFR 26.54
[2024-02-20] MEDS: NOVOLOG FLEXPEN SC ×2 (09:39→12:55)
[2024-02-20] MEDS: LANTUS 0.4 UNITS SC (09:42)
[2024-02-20] MEDS: NOVOLOG FLEXPEN-MODERATE RESISTANCE 1 UNITS SC ×3 (09:44→18:25)
[2024-02-20] MEDS: APRESOLINE 50 MG PO ×2 (09:45→21:06)
[2024-02-20] MEDS: MYFORTIC DELAYED REL. 360 MG PO ×2 (09:45→21:09)
[2024-02-20] MEDS: NOVOLOG FLEXPEN 33 UNITS SC ×2 (09:45→18:25)
[2024-02-20] MEDS: PROGRAF 4 MG PO ×2 (09:46→21:08)
[2024-02-20] MEDS: PROGRAF 0.5 MG PO ×2 (09:46→21:09)
[2024-02-20] MEDS: IMODIUM PO (09:48)
[2024-02-20] MEDS: COREG 6.25 MG PO ×2 (09:49→21:07)
[2024-02-20] MEDS: LEXAPRO 30 MG PO (09:49)
[2024-02-20] MEDS: FLUSH (NSS) 1 FLUSH IV (09:49)
[2024-02-20 11:56] LABS: Glucose - Point of Care 187 mg/dl (70-99)
--- NOTE | 2024-02-20 12:47 | W.PN.NEPH.PH ---
Today's Communication / Plan
-
- txp ultrasound
- urine studies for hyponatremia
Assessment/Plan
-
Impression
Hyperglycemia
Falls
Diarrhea
AG metabolic acidosis (21) with corrected Sodium
Renal transplant with baseline creatinine of 0.7 (2013)
Acute kidney and
Pseudo hyponatremia
Hyperkalemia
Hypertension
Diabetes
PVD
History of sarcoidosis
Hypercalcemia
ASCVD
Asthma
Anxiety and depression
Plan:
VIANEY: cr is significantly elevated to 2.0
- no clear etiology, follow bladder scan, possible relative hypotension , hold ARB
- Hyponatremia slightly worse today, corrected at 128. will check urine sodium and urine osm
- check renal ultrasound, tac level planned for tomorrow AM
- Tac level was low 2.1, pt reports of possibly throwing up meds prior to arrival
- Maintain mycophenolate at current dose
d/w pt
-
-
Date of Service: February 20, 2024
CC / HPI / ROS
-
Chief Complaint:
hypoantremia, K txp
History of Present Illness:
sodium low corrected 128, Bp are stable
BG at 160s this AM
WBC improving
Review of Systems:
no cp or sob
eating well
no fever
Labs
-
Labs:
WBC 10.4 10^3/uL (4.8-10.8) 02/19/24 07:55
RBC 3.48 10^6/uL (4.20-5.40) L 02/19/24 07:55
Hgb 9.5 g/dL (12.0-16.0) L 02/19/24 07:55
Hct 28.9 % (37.0-47.0) L 02/19/24 07:55
Plt Count 271 10^3/uL (130-400) 02/19/24 07:55
Sodium 127 mmol/L (135-145) L 02/20/24 07:23
Potassium 4.8 mmol/L (3.5-5.1) 02/20/24 07:23
Chloride 101 mmol/L (98-107) 02/20/24 07:23
Carbon Dioxide 19 mmol/L (22-30) L 02/20/24 07:23
BUN 43 mg/dl (7-17) H 02/20/24 07:23
Creatinine 2.0 mg/dL (0.6-1.0) H 02/20/24 07:23
eGFR 26.54 02/20/24 07:23
Glucose 161 mg/dl (70-99) H 02/20/24 07:23
Calcium 9.2 mg/dl (8.4-10.2) 02/20/24 07:23
Phosphorus 2.7 mg/dl (2.5-4.5) 02/17/24 05:40
Albumin 3.8 g/dl (3.5-5.0) 02/16/24 03:10
Physical Exam
-
Vital Signs:
Vital Signs
Temp Pulse Resp BP Pulse Ox
98.8 F 73 20 132/59 98
02/20/24 11:07 02/20/24 11:07 02/20/24 11:07 02/20/24 11:07 02/20/24 11:07
Cardiovascular:: Regular rate and rhythm
Respiratory:: Bilateral: CTA
Lung Excursion:: Normal
Abdomen:: Nontender and Soft
Extremity Edema:: None: Bilateral: (trace)
Bowers Catheter: No
--- NOTE | 2024-02-20 14:13 | CM ---
CM reviewed chart, patient not clear for discharge today. Patient will need SNF once medically stable, will follow up with [facility] tomorrow to check bed availability, patient will require insurance auth through [employer]. CM will continue to
follow for all discharge planning needs.
Plan; SNF when medically stable, will need auth.
--- NOTE | 2024-02-20 16:15 | W.PN.HOSP.TC ---
Today's Communication/Plan
-
Renal sonogram.
Workup for recurrent hyponatremia.
Assessment / Plan
Assessment / Plan
Impression:
Patient is a 69y F with PMH significant for DM, CKD s/p renal transplant and chronic diarrhea who presents to ED for evaluation s/p fall at home.
DKA.
VIANEY on CKD 2.
Hyperkalemia
Pseudohyponatremia
Hypercalcemia
Leukocytosis
Troponin elevation secondary to nonischemic cardiac injury in the settings of DKA.
Falls at home
Conditions prior to admission:
IDDM
Renal transplant
Immunosuppression with Prograf and CellCept.
ASCVD/carotid artery disease.
Essential hypertension
Asthma.
Obesity with BMI of 36.
Chronic diarrhea
Anxiety/depression.
Plan:
Poorly controlled diabetes globin A1c 12 (hemoglobin A1c 10/25 at 12)
DKA. Corrected sodium with hyperglycemia, patient with elevated anion gap, elevated serum acetone level.
Initiated on IV insulin drip with now normalized anion gap.
Off insulin drip now.
Blood sugars improved overall but still not at goal, 252 this morning
Transitioned to subcutaneous insulin Lantus/NovoLog adjusting dose daily. At home Tresiba 36 units twice a day and Humalog 24 units AC with last hemoglobin A1c 12.8. Currently hemoglobin A1c 12.6 and on Lantus 38 units bid and 25 units of NovoLog
AC. Increased yesterday Lantus to 40 units bid and NovoLog to 30 units AC. No more increase today to allow changes from yesterday to take place. Monitor blood sugars and adjust medications accordingly.
Advanced to carbohydrate controlled diet
Continue basal bolus protocol.
Discussed with attending RN.
PT OT
CM for D/C to rehab disposition
VIANEY on CKD 2. Renal transplant status
Creatinine 1.2 today
renal transplant on immunosuppression with CellCept and Prograf.
Intravascularly depleted given DKA, polyuria, diarrhea.
Hyperkalemia is a function of hyperglycemia and acidosis.
Acidosis and hyperkalemia improved with IV fluids and insulin.
Continue bladder scan rule out retention (patient reports incontinence)
Renal ultrasound
ARB, spironolactone has been on hold since admission
Continue CellCept and Prograf. Tacrolimus level 2.1 decreased likely due to patient noncompliance.
Hyponatremia
Originally pseudohyponatremia given hyperglycemia
Currently with reasonable glucose correction sodium level at 127.
Urine osmolarity/creatinine ordered by nephrology.
Monitor closely
Leukocytosis, likely stress-induced with acidosis. Improving
WBC down from 20 to 10.4 today
Afebrile with no specific complaints suggestive of infection.
Suspect polyuria secondary to hyperglycemia
Urinalysis not consistent with UTI
Blood cultures negative today
Chest x-ray with no acute abnormalities
Monitor closely off antibiotics while she is on immunosuppression.
Hypertension
Cont losartan 50 mg twice a day
Continue hydralazine 50 mg twice a day
Continue carvedilol 6.25 mg twice a day
Holding spironolactone
Monitor blood pressure and adjust medications according
ASCVD/carotid disease
History of TIA
Continue aspirin and statin
Troponin elevation secondary to nonischemic cardiac injury in the settings of DKA peaked at 0.3
Most recent echo 2021 with preserved biventricular function. No documented CAD.
ECG normal sinus rhythm without ischemic changes
Echocardiogram unremarkable and no changes compared to 2021 echocardiogram
Cardiology evaluation appreciated and they signed off today on 02/17.
Falls at home
Neurologic examination with no focal abnormalities
CT scan of the head with no acute abnormalities.
Physical therapy evaluation.
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
Asthma without Exacerbation
- Continue inhaler regimen / albuterol PRN.
Anxiety / Depression
- Patient tearful / depressed in the ED.
- Continue Lexapro. Increased to 30 mg daily.
Obesity due to excess calories
- Affects all aspects of care.
- Encourage healthy diet and increased activity with goal of weight loss.
DVT Prophylaxis: Lovenox
Code Status: Full
Anticipated Discharge: 24 - 48 hours
Subjective/Interval History
-
Date of Service: February 20, 2024
Objective Data
-
Labs:
Laboratory Results
02/20/24
07:23
Sodium 127 L
Potassium 4.8
Chloride 101
Carbon Dioxide 19 L
BUN 43 H
Creatinine 2.0 H
Glucose 161 H
Calcium 9.2
Vital Signs:
Vital Signs
Temp Pulse Resp BP Pulse Ox
99.6 F 78 20 95/64 96
02/20/24 15:44 02/20/24 15:44 02/20/24 15:44 02/20/24 15:44 02/20/24 15:44
I&O
02/19/24 02/20/24 02/21/24
06:59 06:59 06:59
Intake Total 720 / 720 990 / 990
Output Total 350 / 350 300 / 300
Balance 370 / 370 690 / 690
Physical Exam
-
General: Well Developed and No Apparent Distress
HEENT: Normocephalic, Atraumatic and Moist Mucous Membranes
Respiratory: Clear to Auscultation
Cardiac: Regular Rhythm and S1/S2; Negative Murmur, Rub or Gallop
GI: Soft, Nontender, Nondistended and Normal Bowel Sounds; Negative Organomegaly
Rectal: Deferred by Provider
Musculoskeletal: No Clubbing, No Cyanosis and No Edema
Skin: Negative Rash
Neuro: Awake, Alert, Oriented, AO x 3 and Nonfocal/Grossly Intact
[2024-02-20 16:29] LABS: Glucose - Point of Care 151 mg/dl (70-99)
[2024-02-20] MEDS: LOVENOX 40 MG SC (18:26)
[2024-02-20 19:24] LABS: Urine Sodium 36 mmol/L (30-90)
[2024-02-20 20:07] LABS: Osmolality Urine 265 mOsm/kg (300-900)
[2024-02-20 21:18] LABS: Glucose - Point of Care 95 mg/dl (70-99)
[2024-02-20] MEDS: TYLENOL 650 MG PO (21:28)
--- NOTE | 2024-02-20 21:34 | W.PN.UPDATE ---
Update Note
Progress Note Update
BG this evening 95. Pt with poor appetite and reported pt did not eat hardly anything all day. Refuses to eat hs snack
Will give half lantus dose tonight to avoid hypoglycemia
[2024-02-20] MEDS: LANTUS SC (21:59)
[2024-02-20] MEDS: LANTUS 0.2 UNITS SC (22:00)
[2024-02-20] MEDS: ASPIR LOW (ENTERIC COATED) 81 MG PO (22:05)
[2024-02-20] MEDS: LIPITOR 80 MG PO (22:05)
--- NOTE | 2024-02-20 22:55 | PTCARENOTE ---
pt blood glucose 95 at 2100. pt did not eat dinner. provider notified and Lantus dose was decreased from 40 units to 20 units. encouraged pt to eat a snack to avoid hypoglycemia. plan of care ongoing.
[2024-02-21] VITALS (7 sets, daily range): BP systolic 92–146; BP diastolic 46–76; BMI 37.5
[2024-02-21 04:26] LABS: Glucose - Point of Care 132 mg/dl (70-99)
[2024-02-21] MEDS: SYMBICORT 160/4.5 MCG INHALER 1 PUFF INH ×2 (07:23→19:33)
[2024-02-21 07:39] LABS: Glucose - Point of Care 166 mg/dl (70-99)
[2024-02-21 09:01] LABS: Blood Urea Nitrogen 46 mg/dl (7-17); Calcium 9.3 mg/dl (8.4-10.2); Carbon Dioxide 19 mmol/L (22-30); Chloride 97 mmol/L (98-107); Estimated Creatinine Clearance 37 ml/min; Glucose 154 mg/dl (70-99); Sodium 128 mmol/L (135-145); eGFR 32.26
[2024-02-21] MEDS: NOVOLOG FLEXPEN-MODERATE RESISTANCE 1 UNITS SC (09:28)
[2024-02-21] MEDS: NOVOLOG FLEXPEN 33 UNITS SC ×3 (09:28→16:51)
[2024-02-21] MEDS: PROGRAF 4 MG PO ×2 (09:30→20:49)
[2024-02-21] MEDS: APRESOLINE 50 MG PO ×2 (09:31→20:50)
[2024-02-21] MEDS: COREG 6.25 MG PO ×2 (09:31→20:50)
[2024-02-21] MEDS: IMODIUM PO (09:31)
[2024-02-21] MEDS: LEXAPRO 30 MG PO (09:31)
[2024-02-21] MEDS: PROGRAF 0.5 MG PO ×2 (09:31→20:50)
[2024-02-21] MEDS: LANTUS 0.4 UNITS SC ×2 (09:32→20:50)
[2024-02-21] MEDS: MYFORTIC DELAYED REL. 360 MG PO ×2 (09:32→20:49)
[2024-02-21 09:50] LABS: Potassium 4.9 mmol/L (3.5-5.1)
--- NOTE | 2024-02-21 11:01 | PN.DE.MGMTRT ---
Insulin Management
- -
02/21/2024 Diabetes Management Follow up:
Patient admitted 02/15 s/p fall at home. PMH CHF, HTN, HCL, asthma, diabetes, renal failure with transplant, hypothyroid, depression, carotid artery stenosis, migraine, sarcoidosis, diverticulitis, pancreatitis, IBS. Prior to admission patient was
taking Tresiba 36 units BID with Humalog 24 units AC.
States she was diagnosed at age 22, did take oral diabetes meds for about 5 years then switched to insulin. She currently sees Dr. Sallie Duffy endocrine for diabetes management patient states Dr. Duffy told her she was probably
misdiagnosed and has type 1 diabetes.
Glucose on admission 609. 8/15 AM labs indicate GAP of 18 insulin infusion started. Current A1C 12.6%, Last A1C 12.8% October 2023, Cr 1, eGFR >60, BUN 31.
Patient is awake, A/O x3, sitting up in bed, offers no complaints, able to discuss diabetes management.
Pt was transitioned from IV insulin to subcutaneous insulin on 02/17.
02/19 AC novolog increased to 33 units, premeal glucose improved 151 to 187, fasting 132 this AM.
Patient states her appetite is diminished. Discussed with nurse, she will let me know pre lunch glucose and will decrease novolog if appropriate. Cont Lantus 40 units BID, reduce moderate corrective to low with meals
Diabetes History
- -
Type of Diabetes: 2 requiring insulin
Pre-Admission Diabetes Regimen
02/21/24
08:38
Creatinine 1.7 H
Lab Results
Hemoglobin A1c 12.6 % (4.0-5.6) H 02/16/24 11:45
Insulin Pump Settings
IP Diabetes Regimen
02/20/24 02/20/24 02/20/24
11:55 16:29 21:17
Glucose
POC Glucose 187 H 151 H 95
08/20/24 08/20/24 08/20/24
04:24 07:34 08:38
Glucose 154 H
POC Glucose 132 H 166 H
Meal type: Breakfast
Amount consumed: 55%
Patient Education
[2024-02-21 11:52] LABS: Glucose - Point of Care 237 mg/dl (70-99)
[2024-02-21] MEDS: NOVOLOG FLEXPEN-LOW RESISTANCE 2 UNITS SC (12:27)
--- NOTE | 2024-02-21 13:22 | PN.CDI ---
Addendum entered and electronically signed by Danny Nielsen MD 02/22/24 14:18:
Clinically irrelevant
Original Note:
CDI
- -
CDI:
Physician Documentation Request
Admit Date: 02/16/24 05:42
Dear Doctor Morales,
Please review the following and provide your response in the progress notes.
Clinical Indicators:
PN, 02/19
#...PMH significant for DM, CKD s/p renal transplant
#DKA.
02/21/2024 Diabetes Management Follow up:
#States she was diagnosed at age 22,
#...did take oral diabetes meds for about 5 years then switched to insulin.
#...She currently sees Dr. Sallie Duffy endocrine for diabetes management
#...patient states Dr. Duffy told her she was probably misdiagnosed and
#...has type 1 diabetes.
Please clarify the following regarding Diabetes Mellitus (DM):
Type/Etiology
Type I DM
Type II DM
Other type of DM (please specify)
Use of terms such as suspected, likely, concern for, or probable (associated with a specific diagnosis that is being evaluated, monitored, or treated as if it exists) are acceptable and can be coded in the inpatient setting, when documented at the
time of discharge.
Thank you,
Julia Coronel RN BSN CCDS
CDI Specialist
please contact via tiger text
Please use your independent medical judgment in providing your response.
--- NOTE | 2024-02-21 14:40 | W.PN.NEPH.PH ---
Today's Communication / Plan
-
- fluids
Assessment/Plan
-
Impression
Hyperglycemia
Falls
Diarrhea
AG metabolic acidosis (21) with corrected Sodium
Renal transplant with baseline creatinine of 0.7 (2013)
Acute kidney and
Pseudo hyponatremia
Hyperkalemia
Hypertension
Diabetes
PVD
History of sarcoidosis
Hypercalcemia
ASCVD
Asthma
Anxiety and depression
Plan:
VIANEY: cr slightly improved from prior to 1.7 (peak 2.0)
- no clear etiology, follow bladder scan, possible relative hypotension , hold ARB
- Hyponatremia stable today, corrected at 129. urine studies consistent with hypovol hyponatremia
- renal ultrasound with elevated resistive indices --> could this be ATN from DKA?
- will trial a little bit of NS today and assess response
- tac level pending
- Tac level was low 2.1, pt reports of possibly throwing up meds prior to arrival
- Maintain mycophenolate at current dose
d/w pt
-
-
Date of Service: February 21, 2024
CC / HPI / ROS
-
Chief Complaint:
hypoantremia, K txp
History of Present Illness:
sodium low corrected 129, Bp are stable
BG at 160s this AM
WBC improving
Review of Systems:
no cp or sob
eating well
no fever
Labs
-
Labs:
WBC 10.4 10^3/uL (4.8-10.8) 02/19/24 07:55
RBC 3.48 10^6/uL (4.20-5.40) L 02/19/24 07:55
Hgb 9.5 g/dL (12.0-16.0) L 02/19/24 07:55
Hct 28.9 % (37.0-47.0) L 02/19/24 07:55
Plt Count 271 10^3/uL (130-400) 02/19/24 07:55
Sodium 128 mmol/L (135-145) L 02/21/24 08:38
Potassium 4.9 mmol/L (3.5-5.1) 02/21/24 08:38
Chloride 97 mmol/L (98-107) L 02/21/24 08:38
Carbon Dioxide 19 mmol/L (22-30) L 02/21/24 08:38
BUN 46 mg/dl (7-17) H 02/21/24 08:38
Creatinine 1.7 mg/dL (0.6-1.0) H 02/21/24 08:38
eGFR 32.26 02/21/24 08:38
Glucose 154 mg/dl (70-99) H 02/21/24 08:38
Calcium 9.3 mg/dl (8.4-10.2) 02/21/24 08:38
Phosphorus 2.7 mg/dl (2.5-4.5) 02/17/24 05:40
Albumin 3.8 g/dl (3.5-5.0) 02/16/24 03:10
Physical Exam
-
Vital Signs:
Vital Signs
Temp Pulse Resp BP Pulse Ox
98.6 F 71 14 144/50 96
02/21/24 11:27 02/21/24 11:27 02/21/24 11:27 02/21/24 11:27 02/21/24 11:27
Cardiovascular:: Regular rate and rhythm
Respiratory:: Bilateral: CTA
Lung Excursion:: Normal
Abdomen:: Nontender and Soft
Extremity Edema:: None: Bilateral: (trace)
Bowers Catheter: No
[2024-02-21] MEDS: ZOFRAN 4 MG IV (14:48)
[2024-02-21] MEDS: NSS 500 IV (15:20)
--- NOTE | 2024-02-21 15:58 | CM ---
Patient seen at bedside. Patient complaining of nausea, aide present. CM will continue to follow for discharge planning needs.
Plan; SNF when medically appropriate; pending auth
[2024-02-21 16:43] LABS: Glucose - Point of Care 197 mg/dl (70-99)
[2024-02-21] MEDS: NOVOLOG FLEXPEN-LOW RESISTANCE 1 UNITS SC (16:51)
--- NOTE | 2024-02-21 17:38 | W.PN.HOSP.TC ---
Today's Communication/Plan
-
IV fluids as per renal
Follow sodium level and creatinine.
Continue current insulin regimen monitoring for recurrent hypoglycemia (possibly low oral intake, as well as decreased GFR)
Assessment / Plan
Assessment / Plan
Impression:
Patient is a 69y F with PMH significant for DM, CKD s/p renal transplant and chronic diarrhea who presents to ED for evaluation s/p fall at home.
DKA.
VIANEY on CKD 2.
Hyperkalemia
Pseudohyponatremia
Hypercalcemia
Leukocytosis
Troponin elevation secondary to nonischemic cardiac injury in the settings of DKA.
Falls at home
Conditions prior to admission:
IDDM
Renal transplant
Immunosuppression with Prograf and CellCept.
ASCVD/carotid artery disease.
Essential hypertension
Asthma.
Obesity with BMI of 36.
Chronic diarrhea
Anxiety/depression.
Plan:
Poorly controlled diabetes globin A1c 12 (hemoglobin A1c 4/24 at 12)
DKA. Corrected sodium with hyperglycemia, patient with elevated anion gap, elevated serum acetone level.
Initiated on IV insulin drip with now normalized anion gap.
Off insulin drip now.
Blood sugars improved overall but still not at goal, 252 this morning
Transitioned to subcutaneous insulin Lantus/NovoLog adjusting dose daily. At home Tresiba 36 units twice a day and Humalog 24 units AC with last hemoglobin A1c 12.8. Currently hemoglobin A1c 12.6 and on Lantus 38 units bid and 25 units of NovoLog
AC. Increased yesterday Lantus to 40 units bid and NovoLog to 30 units AC. No more increase today to allow changes from yesterday to take place. Monitor blood sugars and adjust medications accordingly.
Advanced to carbohydrate controlled diet
Continue basal bolus protocol.
Discussed with attending RN.
PT OT
CM for D/C to rehab disposition
VIANEY on CKD 2. Renal transplant status
Creatinine 1.2 today
renal transplant on immunosuppression with CellCept and Prograf.
Intravascularly depleted given DKA, polyuria, diarrhea.
Hyperkalemia is a function of hyperglycemia and acidosis.
Acidosis and hyperkalemia improved with IV fluids and insulin.
Continue bladder scan rule out retention (patient reports incontinence)
Renal ultrasound: Slightly elevated resistive indices in the right lower quadrant transplant kidney which may reflect renal dysfunction and can be seen in the setting of rejection, acute tubular necrosis or other etiologies.
ARB, spironolactone has been on hold since admission
Continue CellCept and Prograf. Tacrolimus level 2.1 decreased likely due to patient noncompliance.
Hyponatremia
Originally pseudohyponatremia given hyperglycemia
Currently with reasonable glucose correction sodium level at 127.
Urine osmolarity/creatinine ordered by nephrology.
Monitor closely
Leukocytosis, likely stress-induced with acidosis. Improving
WBC down from 20 to 10.4 today
Afebrile with no specific complaints suggestive of infection.
Suspect polyuria secondary to hyperglycemia
Urinalysis not consistent with UTI
Blood cultures negative today
Chest x-ray with no acute abnormalities
Monitor closely off antibiotics while she is on immunosuppression.
Hypertension
Cont losartan 50 mg twice a day
Continue hydralazine 50 mg twice a day
Continue carvedilol 6.25 mg twice a day
Holding spironolactone
Monitor blood pressure and adjust medications according
ASCVD/carotid disease
History of TIA
Continue aspirin and statin
Troponin elevation secondary to nonischemic cardiac injury in the settings of DKA peaked at 0.3
Most recent echo 2021 with preserved biventricular function. No documented CAD.
ECG normal sinus rhythm without ischemic changes
Echocardiogram unremarkable and no changes compared to 2021 echocardiogram
Cardiology evaluation appreciated and they signed off today on 02/17.
Falls at home
Neurologic examination with no focal abnormalities
CT scan of the head with no acute abnormalities.
Physical therapy evaluation.
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
Asthma without Exacerbation
- Continue inhaler regimen / albuterol PRN.
Anxiety / Depression
- Patient tearful / depressed in the ED.
- Continue Lexapro. Increased to 30 mg daily.
Obesity due to excess calories
- Affects all aspects of care.
- Encourage healthy diet and increased activity with goal of weight loss.
DVT Prophylaxis: Lovenox
Code Status: Full
Anticipated Discharge: 24 - 48 hours
Subjective/Interval History
-
Date of Service: February 21, 2024
Objective Data
-
Labs:
Laboratory Results
02/21/24
08:38
Sodium 128 L
Potassium 4.9
Chloride 97 L
Carbon Dioxide 19 L
BUN 46 H
Creatinine 1.7 H
Glucose 154 H
Calcium 9.3
Vital Signs:
Vital Signs
Temp Pulse Resp BP Pulse Ox
98.5 F 67 20 136/53 95
02/21/24 15:36 02/21/24 15:36 02/21/24 15:36 02/21/24 15:36 02/21/24 16:26
I&O
02/20/24 02/21/24 02/22/24
06:59 06:59 06:59
Intake Total 990 / 990 0 / 0
Output Total 300 / 300
Balance 690 / 690 0 / 0
Physical Exam
-
General: Well Developed and No Apparent Distress
HEENT: Normocephalic, Atraumatic and Moist Mucous Membranes
Respiratory: Clear to Auscultation
Cardiac: Regular Rhythm and S1/S2; Negative Murmur, Rub or Gallop
GI: Soft, Nontender, Nondistended and Normal Bowel Sounds; Negative Organomegaly
Rectal: Deferred by Provider
Musculoskeletal: No Clubbing, No Cyanosis and No Edema
Skin: Negative Rash
Neuro: Awake, Alert, Oriented, AO x 3 and Nonfocal/Grossly Intact
[2024-02-21] MEDS: LOVENOX 40 MG SC (17:54)
[2024-02-21] MEDS: ASPIR LOW (ENTERIC COATED) 81 MG PO (20:56)
[2024-02-21] MEDS: LIPITOR 80 MG PO (20:56)
[2024-02-21] MEDS: TYLENOL 650 MG PO (21:17)
[2024-02-21 21:23] LABS: Glucose - Point of Care 162 mg/dl (70-99)
--- NOTE | 2024-02-22 00:55 | PTCARENOTE ---
Patient with temp of 101.4, BP 92/57. 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 Repeat temp 100.1. Plan of care ongoing.
[2024-02-22] MEDS: NSS IV (00:56)
[2024-02-22] MEDS: NSS 1000 IV ×2 (00:58→14:47)
[2024-02-22 02:53] LABS: COVID-19 Antigen Negative (Negative)
--- NOTE | 2024-02-22 02:57 | W.PN.UPDATE ---
Update Note
Progress Note Update
transient elevated temps tonight 101.9 and 02/19 and 02/15
bc, ua, cxr all neg 02/15
leukocytosis improving.will repeat cbc in am
Will check covid, get set bc. pt denies urinary complaints (is incont) or resp complaints.
[2024-02-22 03:35] LABS: Glucose - Point of Care 126 mg/dl (70-99)
[2024-02-22 03:39] VITALS: BP 134/54
--- NOTE | 2024-02-22 04:34 | DOWNTIME ---
There was a [employer] Downtime on 02/22/2024 from 0100 to 02/22/2024 at 0252. Downtime documentation of patient's care, including medication administrations, has been reconciled in the electronic record per guidelines. Refer to the
patient's paper chart under the miscellaneous tab to see printed paper medication records and downtime forms.
[2024-02-22 06:00] VITALS: BMI 38.7
[2024-02-22 07:05] VITALS: BP 136/52
[2024-02-22 07:28] LABS: Glucose - Point of Care 127 mg/dl (70-99)
[2024-02-22] MEDS: SYMBICORT 160/4.5 MCG INHALER 1 PUFF INH ×2 (08:08→19:36)
--- NOTE | 2024-02-22 08:32 | PN.DE.MGMTRT ---
Insulin Management
- -
02/22/2024 Diabetes Management F/U:
Patient admitted 02/15 s/p fall at home. PMH CHF, HTN, HCL, asthma, diabetes, renal failure with transplant, hypothyroid, depression, carotid artery stenosis, migraine, sarcoidosis, diverticulitis, pancreatitis, IBS. Prior to admission patient was
taking Tresiba 36 units BID with Humalog 24 units AC.
States she was diagnosed at age 22, did take oral diabetes meds for about 5 years then switched to insulin. She currently sees Dr. Sallie Duffy endocrine for diabetes management patient states Dr. Duffy told her she was probably
misdiagnosed and has type 1 diabetes.
Glucose on admission 609. 8/15 AM labs indicate GAP of 18 insulin infusion started. Current A1C 12.6%, Last A1C 12.8% October 2023, Cr 1, eGFR >60, BUN 31.
Patient is awake, A/O x3, sitting up in bed, offers no complaints, able to discuss diabetes management.
Pt was transitioned from IV insulin to subcutaneous insulin on 02/17.
Glucose has improved overall with one elevation to 237 pre lunch yesterday. Fasting 127 this AM
Will make no changes to current regimen: Lantus 40 units BID, NovoLog 33 units AC and low corrective with meals
Diabetes History
- -
Type of Diabetes: 2 requiring insulin
Pre-Admission Diabetes Regimen
02/21/24
08:38
Creatinine 1.7 H
Lab Results
Hemoglobin A1c 12.6 % (4.0-5.6) H 02/16/24 11:45
Insulin Pump Settings
IP Diabetes Regimen
02/21/24 02/21/24 02/21/24
08:38 11:40 16:42
Glucose 154 H
POC Glucose 237 H 197 H
02/21/24 02/22/24 02/22/24
21:19 03:33 07:18
Glucose
POC Glucose 162 H 126 H 127 H
Meal type: Lunch
Amount consumed: 100%
Patient Education
[2024-02-22] MEDS: PROGRAF 4 MG PO ×2 (08:54→19:48)
[2024-02-22] MEDS: MYFORTIC DELAYED REL. 360 MG PO ×2 (08:55→19:49)
[2024-02-22] MEDS: APRESOLINE 50 MG PO ×2 (08:55→19:53)
[2024-02-22] MEDS: PROGRAF 0.5 MG PO (08:55)
[2024-02-22] MEDS: LEXAPRO 30 MG PO (08:56)
[2024-02-22] MEDS: COREG 6.25 MG PO ×2 (08:56→19:52)
[2024-02-22] MEDS: IMODIUM PO (08:57)
[2024-02-22] MEDS: LANTUS 0.4 UNITS SC ×2 (08:58→22:07)
[2024-02-22] MEDS: NOVOLOG FLEXPEN-LOW RESISTANCE SC (08:59)
[2024-02-22] MEDS: NOVOLOG FLEXPEN 33 UNITS SC ×3 (09:00→16:50)
[2024-02-22 09:46] LABS: % Basophils 0.4 % (0-2); % Eosinophils 1.9 % (0-6); % Immature Granulocytes 0.7 % (0-0.5); % Lymphocytes 6.9 % (20.5-51.1); % Monocytes 14.5 % (1.7-9.3); % Neutrophils 75.6 % (42.2-75.2); Absolute Basophils 0.1 10^3/uL (0-0.2); Absolute Eosinophils 0.2 10^3/uL (0-0.7); Absolute Immature Granulocytes 0.1 10^3/uL (0-0.05); Absolute Lymphocytes 0.8 10^3/uL (1.2-3.4); Absolute Monocytes 1.8 10^3/uL (0.1-0.6); Absolute Neutrophils 9.2 10^3/uL (1.4-6.5); Hematocrit 25.6 % (37.0-47.0); Hemoglobin 8.3 g/dL (12.0-16.0); Mean Corp Hgb Conc. 32.4 g/dL (33.0-37.0); Mean Corpuscular Hgb 26.8 pg (27.0-31.0); Mean Corpuscular Volume 82.6 fL (81.0-99.0); Mean Platelet Volume 10.6 fL (7.4-10.4); Nucleated Red Blood Cells % 0 %; Platelet Count 279 10^3/uL (130-400); Red Cell Dist. Width 13.9 % (11.5-14.5); White Blood Cell Count 12.2 10^3/uL (4.8-10.8)
[2024-02-22 10:19] LABS: Blood Urea Nitrogen 46 mg/dl (7-17); Calcium 8.5 mg/dl (8.4-10.2); Carbon Dioxide 19 mmol/L (22-30); Chloride 102 mmol/L (98-107); Estimated Creatinine Clearance 43 ml/min; Glucose 126 mg/dl (70-99); Potassium 4.9 mmol/L (3.5-5.1); Sodium 127 mmol/L (135-145); eGFR 37.49
[2024-02-22 11:16] VITALS: BP 111/43
[2024-02-22 11:55] LABS: Glucose - Point of Care 211 mg/dl (70-99)
[2024-02-22] MEDS: NOVOLOG FLEXPEN-LOW RESISTANCE 2 UNITS SC (12:45)
--- NOTE | 2024-02-22 13:10 | W.PN.NEPH.PH ---
Today's Communication / Plan
-
likely down titrate Tac to home dose
decrease hydralazine if BP remains low
Assessment/Plan
-
Impression
Hyperglycemia
Falls
Diarrhea
AG metabolic acidosis (21) with corrected Sodium
Renal transplant with baseline creatinine of 0.7 (2013)follow[address] Holder
Acute kidney and
Pseudo hyponatremia
Hyperkalemia
Hypertension
Diabetes
PVD
History of sarcoidosis
Hypercalcemia
ASCVD
Asthma
Anxiety and depression
Plan:
VIANEY: cr slightly improved from prior to 1.5 (peak 2.0)
prerenal-possible relative hypotension , ARB held
- Hyponatremia stable 127, cont iVF
- renal ultrasound with elevated resistive indices
Tac level 7.7 (goal 4-7) on 02/20, dose increased 02/18 since previous level was low 3.1 and prior to that was 2.1
Maintain mycophenolate at current dose
monitor decreasing h/h
d/w pt
-
-
Date of Service: February 22, 2024
CC / HPI / ROS
-
Chief Complaint:
hypoantremia, K txp
History of Present Illness:
sodium low 127, Bp are stable
WBC improving
BP are soft
Review of Systems:
no cp or sob
eating well
no fever
Labs
-
Labs:
WBC 12.2 10^3/uL (4.8-10.8) H 02/22/24 08:33
RBC 3.10 10^6/uL (4.20-5.40) L 02/22/24 08:33
Hgb 8.3 g/dL (12.0-16.0) L 02/22/24 08:33
Hct 25.6 % (37.0-47.0) L 02/22/24 08:33
Plt Count 279 10^3/uL (130-400) 02/22/24 08:33
Sodium 127 mmol/L (135-145) L 02/22/24 08:33
Potassium 4.9 mmol/L (3.5-5.1) 02/22/24 08:33
Chloride 102 mmol/L (98-107) 02/22/24 08:33
Carbon Dioxide 19 mmol/L (22-30) L 02/22/24 08:33
BUN 46 mg/dl (7-17) H 02/22/24 08:33
Creatinine 1.5 mg/dL (0.6-1.0) H 02/22/24 08:33
eGFR 37.49 02/22/24 08:33
Glucose 126 mg/dl (70-99) H 02/22/24 08:33
Calcium 8.5 mg/dl (8.4-10.2) 02/22/24 08:33
Phosphorus 2.7 mg/dl (2.5-4.5) 02/17/24 05:40
Albumin 3.8 g/dl (3.5-5.0) 02/16/24 03:10
Physical Exam
-
Vital Signs:
Vital Signs
Temp Pulse Resp BP Pulse Ox
98.2 F 63 20 111/43 95
02/22/24 11:16 02/22/24 11:16 02/22/24 11:16 02/22/24 11:16 02/22/24 11:16
Cardiovascular:: Regular rate and rhythm
Respiratory:: Bilateral: CTA
Lung Excursion:: Normal
Abdomen:: Nontender and Soft
Extremity Edema:: None: Bilateral:
Bowers Catheter: No
Other Findings::
no graft tenderness RLL
--- NOTE | 2024-02-22 14:18 | W.PN.HOSP.TC ---
Today's Communication/Plan
-
Observe creatinine
Avoid hypotension.
Monitor oral intake and adjust insulin regimen.
Physical therapy evaluation baseline will need alf facility upon discharge
Assessment / Plan
Assessment / Plan
Impression:
Patient is a 69y F with PMH significant for DM, CKD s/p renal transplant and chronic diarrhea who presents to ED for evaluation s/p fall at home.
DKA.
VIANEY on CKD 2.
Hyperkalemia
Pseudohyponatremia
Hypercalcemia
Leukocytosis
Troponin elevation secondary to nonischemic cardiac injury in the settings of DKA.
Falls at home
Conditions prior to admission:
IDDM
Renal transplant
Immunosuppression with Prograf and CellCept.
ASCVD/carotid artery disease.
Essential hypertension
Asthma.
Obesity with BMI of 36.
Chronic diarrhea
Anxiety/depression.
Plan:
Poorly controlled diabetes globin A1c 12 (hemoglobin A1c 4/24 at 12)
DKA. Corrected sodium with hyperglycemia, patient with elevated anion gap, elevated serum acetone level.
Initiated on IV insulin drip with now normalized anion gap.
Off insulin drip now.
Blood sugars improved overall but still not at goal, 252 this morning
Transitioned to subcutaneous insulin Lantus/NovoLog adjusting dose daily. At home Tresiba 36 units twice a day and Humalog 24 units AC with last hemoglobin A1c 12.8. Currently hemoglobin A1c 12.6 and on Lantus 38 units bid and 25 units of NovoLog
AC.
Insulin dose being adjusted daily. Monitor oral intake and renal function.
Advanced to carbohydrate controlled diet
Continue basal bolus protocol.
Discussed with attending RN.
PT OT
CM for D/C to rehab disposition
VIANEY on CKD 2. Renal transplant status
renal transplant on immunosuppression with CellCept and Prograf.
Intravascularly depleted given DKA, polyuria, diarrhea.
Hyperkalemia is a function of hyperglycemia and acidosis.
Acidosis and hyperkalemia improved with IV fluids and insulin.
Continue bladder scan rule out retention (patient reports incontinence)
Renal ultrasound: Slightly elevated resistive indices in the right lower quadrant transplant kidney which may reflect renal dysfunction and can be seen in the setting of rejection, acute tubular necrosis or other etiologies.
ARB, spironolactone has been on hold since admission
Continue CellCept and Prograf. Tacrolimus has been followed and dose being adjusted.
Hyponatremia
Originally pseudohyponatremia given hyperglycemia
Currently with reasonable glucose correction sodium level at 127.
Urine osmolarity/creatinine ordered by nephrology.
Monitor closely
Leukocytosis, likely stress-induced with acidosis. Improving
WBC down from 20 to 10.4 today
Afebrile with no specific complaints suggestive of infection.
Suspect polyuria secondary to hyperglycemia
Urinalysis not consistent with UTI
Blood cultures negative today
Chest x-ray with no acute abnormalities
Monitor closely off antibiotics while she is on immunosuppression.
Hypertension
Cont losartan 50 mg twice a day
Continue hydralazine 50 mg twice a day
Continue carvedilol 6.25 mg twice a day
Holding spironolactone
Monitor blood pressure and adjust medications according
ASCVD/carotid disease
History of TIA
Continue aspirin and statin
Troponin elevation secondary to nonischemic cardiac injury in the settings of DKA peaked at 0.3
Most recent echo 2021 with preserved biventricular function. No documented CAD.
ECG normal sinus rhythm without ischemic changes
Echocardiogram unremarkable and no changes compared to 2021 echocardiogram
Cardiology evaluation appreciated and they signed off today on 02/17.
Falls at home
Neurologic examination with no focal abnormalities
CT scan of the head with no acute abnormalities.
Physical therapy evaluation.
patient case manager for discharge disposition to rehab.
Asthma without Exacerbation
- Continue inhaler regimen / albuterol PRN.
Anxiety / Depression
- Patient tearful / depressed in the ED.
- Continue Lexapro. Increased to 30 mg daily.
Obesity due to excess calories
- Affects all aspects of care.
- Encourage healthy diet and increased activity with goal of weight loss.
DVT Prophylaxis: Lovenox
Code Status: Full
Anticipated Discharge: 24 - 48 hours
Subjective/Interval History
-
Date of Service: February 22, 2024
Objective Data
-
Labs:
Laboratory Results
02/22/24
08:33
WBC 12.2 H
Hgb 8.3 L
Hct 25.6 L
Plt Count 279
Sodium 127 L
Potassium 4.9
Chloride 102
Carbon Dioxide 19 L
BUN 46 H
Creatinine 1.5 H
Glucose 126 H
Calcium 8.5
Vital Signs:
Vital Signs
Temp Pulse Resp BP Pulse Ox
98.2 F 63 20 111/43 95
02/22/24 11:16 02/22/24 11:16 02/22/24 11:16 02/22/24 11:16 02/22/24 14:02
I&O
02/21/24 02/22/24 02/23/24
06:59 06:59 06:59
Intake Total 0 / 0 480 / 480
Balance 0 / 0 480 / 480
Physical Exam
-
General: Well Developed and No Apparent Distress
HEENT: Normocephalic, Atraumatic and Moist Mucous Membranes
Respiratory: Clear to Auscultation
Cardiac: Regular Rhythm and S1/S2; Negative Murmur, Rub or Gallop
GI: Soft, Nontender, Nondistended and Normal Bowel Sounds; Negative Organomegaly
Rectal: Deferred by Provider
Musculoskeletal: No Clubbing, No Cyanosis and No Edema
Skin: Negative Rash
Neuro: Awake, Alert, Oriented, AO x 3 and Nonfocal/Grossly Intact
--- NOTE | 2024-02-22 14:42 | CM ---
Addendum entered by Mis Vizcarra 02/22/24 14:47:
Patient has had [facility] in the past. Referral to nurse liaison.
Original Note:
Spoke with patient bedside.
Patient is currently not agreeable to skilled rehab, says she will refuse.
Patient has a walker and cane at home. Lives in 2 story home and says she can get up the steps with the rail and cane.
Per patient 12 steps to enter home.
patient is agreeable to VN, stated has had [facility]N in the past, not sure which.
Per patient spouse will transport home.
Need to review updated PT/OT notes.
Plan: home with VN vs skilled rehab (needs [facility] auth).
[2024-02-22 15:14] VITALS: BP 148/66
--- NOTE | 2024-02-22 16:11 | VNURNOTE ---
Home Health Liaison met with patient at bedside to discuss [facility] nurse/therapy, visits, schedule and homebound status. Patient is agreeable and understands that visits at home will be 1-3 x per week to assess and teach medical management. [facility]
brochure provided with contact information. Patient is aware that [facility] will contact them for start of care in a few days after discharge from .
[facility] referral completed in [facility].
[2024-02-22 16:43] LABS: Glucose - Point of Care 196 mg/dl (70-99)
[2024-02-22] MEDS: MIRALAX 17 GRAMS PO (16:49)
[2024-02-22] MEDS: LOVENOX 40 MG SC (16:49)
[2024-02-22] MEDS: NOVOLOG FLEXPEN-LOW RESISTANCE 1 UNITS SC (16:51)
[2024-02-22 19:31] VITALS: BP 156/59
[2024-02-22] MEDS: TYLENOL 650 MG PO (19:54)
[2024-02-22 21:25] LABS: Glucose - Point of Care 159 mg/dl (70-99)
[2024-02-22] MEDS: ASPIR LOW (ENTERIC COATED) 81 MG PO (22:09)
[2024-02-22] MEDS: SENOKOT-S 1 TABLET PO (22:09)
[2024-02-22] MEDS: LIPITOR 80 MG PO (22:09)
[2024-02-22 23:47] VITALS: BP 152/54
[2024-02-23] VITALS (7 sets, daily range): BP systolic 113–170; BP diastolic 62–78; PULSE 58; O2SAT 96; BMI 38.8
[2024-02-23] MEDS: NSS 1000 IV (06:27)
[2024-02-23 07:11] LABS: % Basophils 0.4 % (0-2); % Eosinophils 2.4 % (0-6); % Immature Granulocytes 0.7 % (0-0.5); % Lymphocytes 6.9 % (20.5-51.1); % Monocytes 13.3 % (1.7-9.3); % Neutrophils 76.3 % (42.2-75.2); Absolute Eosinophils 0.3 10^3/uL (0-0.7); Absolute Immature Granulocytes 0.1 10^3/uL (0-0.05); Absolute Lymphocytes 0.8 10^3/uL (1.2-3.4); Absolute Monocytes 1.5 10^3/uL (0.1-0.6); Absolute Neutrophils 8.6 10^3/uL (1.4-6.5); Hematocrit 28.7 % (37.0-47.0); Hemoglobin 9.3 g/dL (12.0-16.0); Mean Corp Hgb Conc. 32.4 g/dL (33.0-37.0); Mean Corpuscular Hgb 27.7 pg (27.0-31.0); Mean Corpuscular Volume 85.4 fL (81.0-99.0); Mean Platelet Volume 10.4 fL (7.4-10.4); Nucleated Red Blood Cells % 0 %; Platelet Count 311 10^3/uL (130-400); Red Blood Cell Count 3.36 10^6/uL (4.20-5.40); Red Cell Dist. Width 13.8 % (11.5-14.5); White Blood Cell Count 11.3 10^3/uL (4.8-10.8)
[2024-02-23] MEDS: SYMBICORT 160/4.5 MCG INHALER 1 PUFF INH ×2 (07:19→20:06)
[2024-02-23 07:23] LABS: Blood Urea Nitrogen 43 mg/dl (7-17); Calcium 8.8 mg/dl (8.4-10.2); Carbon Dioxide 17 mmol/L (22-30); Chloride 105 mmol/L (98-107); Estimated Creatinine Clearance 46 ml/min; Glucose 88 mg/dl (70-99); Potassium 5.2 mmol/L (3.5-5.1); Sodium 133 mmol/L (135-145); eGFR 40.73
--- NOTE | 2024-02-23 07:43 | PN.DE.MGMTRT ---
Insulin Management
- -
02/23/2024 Diabetes Management Follow up:
Patient admitted 02/15 s/p fall at home. PMH CHF, HTN, HCL, asthma, diabetes, renal failure with transplant, hypothyroid, depression, carotid artery stenosis, migraine, sarcoidosis, diverticulitis, pancreatitis, IBS. Prior to admission patient was
taking Tresiba 36 units BID with Humalog 24 units AC.
States she was diagnosed at age 22, did take oral diabetes meds for about 5 years then switched to insulin. She currently sees Dr. Sallie Duffy endocrine for diabetes management patient states Dr. Duffy told her she was probably
misdiagnosed and has type 1 diabetes.
Glucose on admission 609. 8/15 AM labs indicate GAP of 18 insulin infusion started. Current A1C 12.6%, Last A1C 12.8% October 2023. 02/22 Cr 1.4, eGFR 40.73, BUN 43.
Patient is awake, A/O x3, sitting out of bed, offers no complaints, able to discuss diabetes management.
Pt was transitioned from IV insulin to subcutaneous insulin on 02/17.
Glucose has improved, range 127 to 211, 02/21. Fasting venous 88 and 113 POC this AM
Will make no changes to current regimen: Lantus 40 units BID, NovoLog 33 units AC and low corrective with meals
Diabetes History
- -
Type of Diabetes: 1
Pre-Admission Diabetes Regimen
02/22/24 02/23/24
08: 06:52
Creatinine 1.5 H 1.4 H
Lab Results
Hemoglobin A1c 12.6 % (4.0-5.6) H 02/16/24 11:45
Insulin Pump Settings
IP Diabetes Regimen
02/22/24 02/22/24 02/22/24
08:33 11:35 16:37
Glucose 126 H
POC Glucose 211 H 196 H
02/22/24 02/23/24
21:23 06:52
Glucose 88
POC Glucose 159 H
Meal type: Lunch
Amount consumed: 100%
Patient Education
[2024-02-23 08:20] LABS: Glucose - Point of Care 113 mg/dl (70-99)
[2024-02-23] MEDS: NOVOLOG FLEXPEN-LOW RESISTANCE SC ×2 (09:48→16:42)
[2024-02-23] MEDS: MIRALAX 17 GRAMS PO (09:49)
[2024-02-23] MEDS: IMODIUM PO (09:49)
[2024-02-23] MEDS: MYFORTIC DELAYED REL. 360 MG PO ×2 (09:50→20:25)
[2024-02-23] MEDS: COREG 6.25 MG PO ×2 (09:50→19:58)
[2024-02-23] MEDS: APRESOLINE 50 MG PO ×2 (09:50→19:58)
[2024-02-23] MEDS: PROGRAF 4 MG PO ×2 (09:50→20:25)
[2024-02-23] MEDS: LEXAPRO 30 MG PO (09:50)
[2024-02-23] MEDS: NOVOLOG FLEXPEN 33 UNITS SC ×3 (09:51→16:33)
[2024-02-23] MEDS: LANTUS 0.4 UNITS SC (09:51)
[2024-02-23] MEDS: COLACE PO ×2 (10:39→19:56)
[2024-02-23 12:09] LABS: Glucose - Point of Care 210 mg/dl (70-99)
[2024-02-23] MEDS: NOVOLOG FLEXPEN-LOW RESISTANCE 2 UNITS SC (13:53)
--- NOTE | 2024-02-23 14:47 | W.PN.HOSP.TC ---
Today's Communication/Plan
-
Monitor renal function.
May require additional IV fluids plus minus bicarb
Adjust insulin regimen
Discharge planning to half-way facility
Assessment / Plan
Assessment / Plan
Impression:
Patient is a 69y F with PMH significant for DM, CKD s/p renal transplant and chronic diarrhea who presents to ED for evaluation s/p fall at home.
DKA.
VIANEY on CKD 2.
Hyperkalemia
Pseudohyponatremia
Hypercalcemia
Leukocytosis
Troponin elevation secondary to nonischemic cardiac injury in the settings of DKA.
Falls at home
Conditions prior to admission:
IDDM
Renal transplant
Immunosuppression with Prograf and CellCept.
ASCVD/carotid artery disease.
Essential hypertension
Asthma.
Obesity with BMI of 36.
Chronic diarrhea
Anxiety/depression.
Plan:
Poorly controlled diabetes globin A1c 12 (hemoglobin A1c 4/24 at 12)
DKA. Corrected sodium with hyperglycemia, patient with elevated anion gap, elevated serum acetone level.
Initiated on IV insulin drip with now normalized anion gap.
Off insulin drip now.
Blood sugars improved overall but still not at goal, 252 this morning
Transitioned to subcutaneous insulin Lantus/NovoLog adjusting dose daily. At home Tresiba 36 units twice a day and Humalog 24 units AC with last hemoglobin A1c 12.8. Currently hemoglobin A1c 12.6 and on Lantus 38 units bid and 25 units of NovoLog
AC.
Insulin dose being adjusted daily. Monitor oral intake and renal function.
Advanced to carbohydrate controlled diet
Continue basal bolus protocol.
Discussed with attending RN.
PT OT
CM for D/C to rehab disposition
VIANEY on CKD 2. Renal transplant status
renal transplant on immunosuppression with CellCept and Prograf.
Intravascularly depleted given DKA, polyuria, diarrhea.
Hyperkalemia is a function of hyperglycemia and acidosis.
Acidosis and hyperkalemia improved with IV fluids and insulin.
Continue bladder scan rule out retention (patient reports incontinence)
Renal ultrasound: Slightly elevated resistive indices in the right lower quadrant transplant kidney which may reflect renal dysfunction and can be seen in the setting of rejection, acute tubular necrosis or other etiologies, nonspecific
ARB, spironolactone has been on hold since admission
Continue CellCept and Prograf. Tacrolimus has been followed and dose being adjusted.
Hyponatremia
Originally pseudohyponatremia given hyperglycemia
Currently with reasonable glucose correction sodium level at 127.
Urine osmolarity/creatinine ordered by nephrology.
Monitor closely
Leukocytosis, likely stress-induced with acidosis. Improving
WBC down from 20 to 10.4 today
Afebrile with no specific complaints suggestive of infection.
Suspect polyuria secondary to hyperglycemia
Urinalysis not consistent with UTI
Blood cultures negative today
Chest x-ray with no acute abnormalities
Monitor closely off antibiotics while she is on immunosuppression.
Hypertension
Cont losartan 50 mg twice a day
Continue hydralazine 50 mg twice a day
Continue carvedilol 6.25 mg twice a day
Holding spironolactone
Monitor blood pressure and adjust medications according
ASCVD/carotid disease
History of TIA
Continue aspirin and statin
Troponin elevation secondary to nonischemic cardiac injury in the settings of DKA peaked at 0.3
Most recent echo 2021 with preserved biventricular function. No documented CAD.
ECG normal sinus rhythm without ischemic changes
Echocardiogram unremarkable and no changes compared to 2021 echocardiogram
Cardiology evaluation appreciated and they signed off today on 02/17.
Falls at home
Neurologic examination with no focal abnormalities
CT scan of the head with no acute abnormalities.
Physical therapy evaluation.
crm campaign manager for discharge disposition to rehab.
Asthma without Exacerbation
- Continue inhaler regimen / albuterol PRN.
Anxiety / Depression
- Patient tearful / depressed in the ED.
- Continue Lexapro. Increased to 30 mg daily.
Obesity due to excess calories
- Affects all aspects of care.
- Encourage healthy diet and increased activity with goal of weight loss.
DVT Prophylaxis: Lovenox
Code Status: Full
Anticipated Discharge: 24 - 48 hours
Subjective/Interval History
-
Date of Service: February 23, 2024
Objective Data
-
Labs:
Laboratory Results
02/23/24
06:52
WBC 11.3 H
Hgb 9.3 L
Hct 28.7 L
Plt Count 311
Sodium 133 L
Potassium 5.2 H
Chloride 105
Carbon Dioxide 17 L
BUN 43 H
Creatinine 1.4 H
Glucose 88
Calcium 8.8
Vital Signs:
Vital Signs
Temp Pulse Resp BP Pulse Ox
98.5 F 63 20 151/63 95
02/23/24 11:51 02/23/24 11:51 02/23/24 11:51 02/23/24 11:51 02/23/24 11:51
I&O
02/22/24 02/23/24 02/24/24
06:59 06:59 06:59
Intake Total 480 / 480 780 / 780
Balance 480 / 480 780 / 780
Physical Exam
-
General: Well Developed and No Apparent Distress
HEENT: Normocephalic, Atraumatic and Moist Mucous Membranes
Respiratory: Clear to Auscultation
Cardiac: Regular Rhythm and S1/S2; Negative Murmur, Rub or Gallop
GI: Soft, Nontender, Nondistended and Normal Bowel Sounds; Negative Organomegaly
Rectal: Deferred by Provider
Musculoskeletal: No Clubbing, No Cyanosis and No Edema
Skin: Negative Rash
Neuro: Awake, Alert, Oriented, AO x 3 and Nonfocal/Grossly Intact
--- NOTE | 2024-02-23 16:22 | W.PN.NEPH.PH ---
Today's Communication / Plan
-
add sodium bicarb
d/c IVF after current bag
Assessment/Plan
-
Impression
Hyperglycemia
Falls
Diarrhea
AG metabolic acidosis (21) with corrected Sodium
Renal transplant with baseline creatinine of 0.7 (2013)follows Dr Holder
Acute kidney and
Pseudo hyponatremia
Hyperkalemia
Hypertension
Diabetes
PVD
History of sarcoidosis
Hypercalcemia
ASCVD
Asthma
Anxiety and depression
Plan:
VIANEY: cr slow to improve 1.4 (peak 2.0)
prerenal-possible relative hypotension , ARB held
- Hyponatremia sodium better with IVF d/c after this bag
- renal ultrasound with elevated resistive indices
mild hyperkalemia and met acidosis likely from cl based IVF, add po bicarb and low k diet
Tac level 7.7 (goal 4-7) on 02/20, dose increased 02/18 since previous level was low 3.1 and prior to that was 2.1
cont home dose tac
Maintain mycophenolate at current dose
monitor decreasing h/h
d/w pt
-
-
Date of Service: February 23, 2024
CC / HPI / ROS
-
Chief Complaint:
hypoantremia, K txp
History of Present Illness:
sodium low 133, cr better at 1.4,k 5.2, bicarb 17
WBC improving
BP are stable
Review of Systems:
no cp or sob
eating well
no fever
Labs
-
Labs:
WBC 11.3 10^3/uL (4.8-10.8) H 02/23/24 06:52
RBC 3.36 10^6/uL (4.20-5.40) L 02/23/24 06:52
Hgb 9.3 g/dL (12.0-16.0) L 02/23/24 06:52
Hct 28.7 % (37.0-47.0) L 02/23/24 06:52
Plt Count 311 10^3/uL (130-400) 02/23/24 06:52
Sodium 133 mmol/L (135-145) L 02/23/24 06:52
Potassium 5.2 mmol/L (3.5-5.1) H 02/23/24 06:52
Chloride 105 mmol/L (98-107) 02/23/24 06:52
Carbon Dioxide 17 mmol/L (22-30) L 02/23/24 06:52
BUN 43 mg/dl (7-17) H 02/23/24 06:52
Creatinine 1.4 mg/dL (0.6-1.0) H 02/23/24 06:52
eGFR 40.73 02/23/24 06:52
Glucose 88 mg/dl (70-99) 02/23/24 06:52
Calcium 8.8 mg/dl (8.4-10.2) 02/23/24 06:52
Phosphorus 2.7 mg/dl (2.5-4.5) 02/17/24 05:40
Albumin 3.8 g/dl (3.5-5.0) 02/16/24 03:10
Physical Exam
-
Vital Signs:
Vital Signs
Temp Pulse Resp BP Pulse Ox
97.8 F 62 18 153/68 98
02/23/24 15:11 02/23/24 15:11 02/23/24 15:11 02/23/24 15:11 02/23/24 15:11
Cardiovascular:: Regular rate and rhythm
Respiratory:: Bilateral: CTA
Lung Excursion:: Normal
Abdomen:: Nontender and Soft
Extremity Edema:: None: Bilateral:
Bowers Catheter: No
[2024-02-23 16:47] LABS: Glucose - Point of Care 149 mg/dl (70-99)
[2024-02-23] MEDS: LOVENOX 40 MG SC (17:16)
[2024-02-23 21:04] LABS: Glucose - Point of Care 99 mg/dl (70-99)
[2024-02-23] MEDS: SODIUM BICARBONATE 650 MG PO (21:42)
[2024-02-23] MEDS: ASPIR LOW (ENTERIC COATED) 81 MG PO (21:42)
[2024-02-23] MEDS: LIPITOR 80 MG PO (21:42)
[2024-02-23] MEDS: LANTUS SC (22:58)
--- NOTE | 2024-02-23 23:00 | PTCARENOTE ---
Pts blood sugar 99- house HEALTH CARE ANALYST aware order to hold HS dose lantus.
[2024-02-24 03:33] VITALS: BP 154/62
--- NOTE | 2024-02-24 03:55 | PTCARENOTE ---
2303: Pts BP 170/72 HR 66. House [facility] notified. Order to recheck at 0300 154/62- HR 63.
[2024-02-24 06:00] VITALS: BMI 39.2
[2024-02-24 07:11] LABS: Glucose - Point of Care 104 mg/dl (70-99)
[2024-02-24 07:20] VITALS: BP 116/47
[2024-02-24] MEDS: SYMBICORT 160/4.5 MCG INHALER 1 PUFF INH ×2 (07:57→19:45)
[2024-02-24] MEDS: IMODIUM PO (08:51)
[2024-02-24] MEDS: NOVOLOG FLEXPEN-LOW RESISTANCE SC ×3 (08:51→17:16)
[2024-02-24] MEDS: NOVOLOG FLEXPEN 33 UNITS SC ×2 (09:06→12:59)
[2024-02-24] MEDS: COREG 6.25 MG PO ×2 (09:06→20:49)
[2024-02-24] MEDS: LEXAPRO 30 MG PO (09:06)
[2024-02-24] MEDS: MYFORTIC DELAYED REL. 360 MG PO ×2 (09:06→20:50)
[2024-02-24] MEDS: SODIUM BICARBONATE 650 MG PO ×3 (09:06→20:51)
[2024-02-24] MEDS: APRESOLINE 50 MG PO ×2 (09:06→20:49)
[2024-02-24] MEDS: PROGRAF 4 MG PO ×2 (09:06→20:50)
[2024-02-24] MEDS: MIRALAX PO (09:07)
[2024-02-24] MEDS: COLACE 100 MG PO ×2 (09:07→20:49)
[2024-02-24] MEDS: LANTUS 0.4 UNITS SC ×2 (09:13→20:50)
--- NOTE | 2024-02-24 09:30 | PN.DE.MGMTRT ---
Insulin Management
- -
02/24/2024: Diabetes Management F/U:
Patient admitted 02/15 s/p fall at home. PMH CHF, HTN, HCL, asthma, diabetes, renal failure with transplant, hypothyroid, depression, carotid artery stenosis, migraine, sarcoidosis, diverticulitis, pancreatitis, IBS. Prior to admission patient was
taking Tresiba 36 units BID with Humalog 24 units AC.
States she was diagnosed at age 22, did take oral diabetes meds for about 5 years then switched to insulin. She currently sees Dr. Sallie Duffy endocrine for diabetes management patient states Dr. Duffy told her she was probably
misdiagnosed and has type 1 diabetes.
Glucose on admission 609. 8/15 AM labs indicate GAP of 18 insulin infusion started. Current A1C 12.6%, Last A1C 12.8% October 2023. 02/22 Cr 1.4, eGFR 40.73, BUN 43.
Patient is awake, A/O x3, sitting up in bed, offers no complaints, able to discuss diabetes management.
Pt was transitioned from IV insulin to subcutaneous insulin on 02/17.
02/22 Glucose stable, range 113 to 210. Fasting 104 POC this AM
Will make no changes to current regimen: Lantus 40 units BID, NovoLog 33 units AC and low corrective with meals
Diabetes History
- -
Type of Diabetes: 2 requiring insulin
Pre-Admission Diabetes Regimen
Lab Results
Hemoglobin A1c 12.6 % (4.0-5.6) H 02/16/24 11:45
Insulin Pump Settings
IP Diabetes Regimen
02/23/24 02/23/24 02/23/24
12:08 16:41 21:03
POC Glucose 210 H 149 H 99
02/24/24
07:10
POC Glucose 104 H
Meal type: Dinner
Meal type: Lunch
Meal type: Breakfast
Amount consumed: 100%
Amount consumed: 100%
Amount consumed: 100%
Patient Education
[2024-02-24 09:51] LABS: % Basophils 0.4 % (0-2); % Eosinophils 3.6 % (0-6); % Immature Granulocytes 2.2 % (0-0.5); % Lymphocytes 13.7 % (20.5-51.1); % Neutrophils 68.1 % (42.2-75.2); Absolute Eosinophils 0.3 10^3/uL (0-0.7); Absolute Immature Granulocytes 0.2 10^3/uL (0-0.05); Absolute Lymphocytes 1.1 10^3/uL (1.2-3.4); Absolute Monocytes 0.9 10^3/uL (0.1-0.6); Absolute Neutrophils 5.2 10^3/uL (1.4-6.5); Hematocrit 25.5 % (37.0-47.0); Hemoglobin 8.3 g/dL (12.0-16.0); Mean Corp Hgb Conc. 32.5 g/dL (33.0-37.0); Mean Corpuscular Hgb 27.6 pg (27.0-31.0); Mean Corpuscular Volume 84.7 fL (81.0-99.0); Mean Platelet Volume 10.6 fL (7.4-10.4); Nucleated Red Blood Cells % 0 %; Platelet Count 295 10^3/uL (130-400); Red Blood Cell Count 3.01 10^6/uL (4.20-5.40); Red Cell Dist. Width 13.8 % (11.5-14.5); White Blood Cell Count 7.7 10^3/uL (4.8-10.8)
[2024-02-24 10:17] LABS: Blood Urea Nitrogen 42 mg/dl (7-17); Calcium 8.6 mg/dl (8.4-10.2); Carbon Dioxide 19 mmol/L (22-30); Chloride 106 mmol/L (98-107); Estimated Creatinine Clearance 50 ml/min; Glucose 99 mg/dl (70-99); Potassium 5.9 mmol/L (3.5-5.1); Sodium 134 mmol/L (135-145); eGFR 44.51
[2024-02-24] MEDS: SODIUM BICARBONATE 50 MEQ IV (11:31)
[2024-02-24 12:26] LABS: Glucose - Point of Care 120 mg/dl (70-99)
--- NOTE | 2024-02-24 14:08 | W.PN.NEPH.PH ---
Today's Communication / Plan
-
- sodium bicarb and insulin
Assessment/Plan
-
Impression
Hyperglycemia
Falls
Diarrhea
AG metabolic acidosis (21) with corrected Sodium
Renal transplant with baseline creatinine of 0.7 (2013)follows Dr Holder
Acute kidney and
Pseudo hyponatremia
Hyperkalemia
Hypertension
Diabetes
PVD
History of sarcoidosis
Hypercalcemia
ASCVD
Asthma
Anxiety and depression
Plan:
VIANEY: cr slow to improve 1.3 (peak 2.0)
prerenal-possible relative hypotension , ARB held
- Hyponatremia sodium better with IVF
- renal ultrasound with elevated resistive indices
mild hyperkalemia and non anion gap met acidosis --> could this be a type 4 RTA from diabetes?
given 1amp bicarb. will initiate the patient on lokellma as well
Tac level 7.7 (goal 4-7) on 02/20, dose increased 02/18 since previous level was low 3.1 and prior to that was 2.1
cont home dose tac
Maintain mycophenolate at current dose
monitor decreasing h/h
d/w pt
-
-
Date of Service: February 24, 2024
CC / HPI / ROS
-
Chief Complaint:
hypoantremia, K txp
History of Present Illness:
sodium low 134, cr better at 1.3,k 5.9, bicarb 19
WBC improving
BP are stable
Review of Systems:
no cp or sob
eating well
no fever
Labs
-
Labs:
WBC 7.7 10^3/uL (4.8-10.8) 02/24/24 08:31
RBC 3.01 10^6/uL (4.20-5.40) L 02/24/24 08:31
Hgb 8.3 g/dL (12.0-16.0) L 02/24/24 08:31
Hct 25.5 % (37.0-47.0) L 02/24/24 08:31
Plt Count 295 10^3/uL (130-400) 02/24/24 08:31
Sodium 134 mmol/L (135-145) L 02/24/24 08:31
Potassium 5.9 mmol/L (3.5-5.1) H 02/24/24 08:31
Chloride 106 mmol/L (98-107) 02/24/24 08:31
Carbon Dioxide 19 mmol/L (22-30) L 02/24/24 08:31
BUN 42 mg/dl (7-17) H 02/24/24 08:31
Creatinine 1.3 mg/dL (0.6-1.0) H 02/24/24 08:31
eGFR 44.51 02/24/24 08:31
Glucose 99 mg/dl (70-99) 02/24/24 08:31
Calcium 8.6 mg/dl (8.4-10.2) 02/24/24 08:31
Phosphorus 2.7 mg/dl (2.5-4.5) 02/17/24 05:40
Albumin 3.8 g/dl (3.5-5.0) 02/16/24 03:10
Physical Exam
-
Vital Signs:
Vital Signs
Temp Pulse Resp BP Pulse Ox
98.5 F 62 14 116/47 96
02/24/24 07:20 02/24/24 07:59 02/24/24 07:59 02/24/24 07:20 02/24/24 08:40
Cardiovascular:: Regular rate and rhythm
Respiratory:: Bilateral: CTA
Lung Excursion:: Normal
Abdomen:: Nontender and Soft
Extremity Edema:: None: Bilateral:
Bowers Catheter: No
[2024-02-24 15:08] VITALS: BP 173/62
[2024-02-24 15:12] LABS: Blood Urea Nitrogen 44 mg/dl (7-17); Carbon Dioxide 23 mmol/L (22-30); Chloride 104 mmol/L (98-107); Estimated Creatinine Clearance 54 ml/min; Glucose 79 mg/dl (70-99); Potassium 5.1 mmol/L (3.5-5.1); Sodium 136 mmol/L (135-145)
--- NOTE | 2024-02-24 15:55 | W.PN.HOSP.TC ---
Today's Communication/Plan
-
Treat hyperkalemia.
Follow BMP.
Assessment / Plan
Assessment / Plan
Impression:
Patient is a 69y F with PMH significant for DM, CKD s/p renal transplant and chronic diarrhea who presents to ED for evaluation s/p fall at home.
DKA.
VIANEY on CKD 2.
Hyperkalemia
Pseudohyponatremia
Hypercalcemia
Leukocytosis
Troponin elevation secondary to nonischemic cardiac injury in the settings of DKA.
Falls at home
Conditions prior to admission:
IDDM
Renal transplant
Immunosuppression with Prograf and CellCept.
ASCVD/carotid artery disease.
Essential hypertension
Asthma.
Obesity with BMI of 36.
Chronic diarrhea
Anxiety/depression.
Plan:
Poorly controlled diabetes globin A1c 12 (hemoglobin A1c 4/ at 12)
DKA. Corrected sodium with hyperglycemia, patient with elevated anion gap, elevated serum acetone level.
Initiated on IV insulin drip with now normalized anion gap.
Off insulin drip now.
Blood sugars improved overall but still not at goal, 252 this morning
Transitioned to subcutaneous insulin Lantus/NovoLog adjusting dose daily. At home Tresiba 36 units twice a day and Humalog 24 units AC with last hemoglobin A1c 12.8. Currently hemoglobin A1c 12.6 and on Lantus 38 units bid and 25 units of NovoLog
AC.
Insulin dose being adjusted daily. Monitor oral intake and renal function.
Advanced to carbohydrate controlled diet
Continue basal bolus protocol.
Discussed with attending RN.
PT OT
CM for D/C to rehab disposition
VIANEY on CKD 2. Renal transplant status
renal transplant on immunosuppression with CellCept and Prograf.
Intravascularly depleted given DKA, polyuria, diarrhea.
Hyperkalemia is a function of hyperglycemia and acidosis.
Continue bladder scan rule out retention (patient reports incontinence)
Renal ultrasound: Slightly elevated resistive indices in the right lower quadrant transplant kidney which may reflect renal dysfunction and can be seen in the setting of rejection, acute tubular necrosis or other etiologies, nonspecific
ARB, spironolactone has been on hold since admission
Continue CellCept and Prograf. Tacrolimus has been followed and dose being adjusted.
Hyperkalemia with acidosis
? If related to RTA.
Continue temporized with bicarbonate and insulin
Consideration of Lokelma, although could not decrease absorption of CellCept and Prograf.
Hyponatremia
Originally pseudohyponatremia given hyperglycemia
Currently with reasonable glucose correction sodium level at 127.
Urine osmolarity/creatinine ordered by nephrology.
Monitor closely
Leukocytosis, likely stress-induced with acidosis. Improving
WBC down from 20 to 10.4 today
Afebrile with no specific complaints suggestive of infection.
Suspect polyuria secondary to hyperglycemia
Urinalysis not consistent with UTI
Blood cultures negative today
Chest x-ray with no acute abnormalities
Monitor closely off antibiotics while she is on immunosuppression.
Hypertension
Cont losartan 50 mg twice a day
Continue hydralazine 50 mg twice a day
Continue carvedilol 6.25 mg twice a day
Holding spironolactone
Monitor blood pressure and adjust medications according
ASCVD/carotid disease
History of TIA
Continue aspirin and statin
Troponin elevation secondary to nonischemic cardiac injury in the settings of DKA peaked at 0.3
Most recent echo 2021 with preserved biventricular function. No documented CAD.
ECG normal sinus rhythm without ischemic changes
Echocardiogram unremarkable and no changes compared to 2021 echocardiogram
Cardiology evaluation appreciated and they signed off today on 02/17.
Falls at home
Neurologic examination with no focal abnormalities
CT scan of the head with no acute abnormalities.
Physical therapy evaluation.
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
Asthma without Exacerbation
- Continue inhaler regimen / albuterol PRN.
Anxiety / Depression
- Patient tearful / depressed in the ED.
- Continue Lexapro. Increased to 30 mg daily.
Obesity due to excess calories
- Affects all aspects of care.
- Encourage healthy diet and increased activity with goal of weight loss.
DVT Prophylaxis: Lovenox
Code Status: Full
Anticipated Discharge: 24 - 48 hours
Subjective/Interval History
-
Date of Service: February 24, 2024
Objective Data
-
Labs:
Laboratory Results
02/24/24 02/24/24
08:31 14:36
WBC 7.7
Hgb 8.3 L
Hct 25.5 L
Plt Count 295
Sodium 134 L 136
Potassium 5.9 H 5.1
Chloride 106 104
Carbon Dioxide 19 L 23
BUN 42 H 44 H
Creatinine 1.3 H 1.2 H
Glucose 99 79
Calcium 8.6 9.0
Vital Signs:
Vital Signs
Temp Pulse Resp BP Pulse Ox
97.8 F 57 20 173/62 96
02/24/24 15:08 02/24/24 15:08 02/24/24 15:08 02/24/24 15:08 02/24/24 15:08
I&O
02/23/24 02/24/24 02/25/24
06:59 06:59 06:59
Intake Total 780 / 780 1080 / 1080
Balance 780 / 780 1080 / 1080
Physical Exam
-
General: Well Developed and No Apparent Distress
HEENT: Normocephalic, Atraumatic and Moist Mucous Membranes
Respiratory: Clear to Auscultation
Cardiac: Regular Rhythm and S1/S2; Negative Murmur, Rub or Gallop
GI: Soft, Nontender, Nondistended and Normal Bowel Sounds; Negative Organomegaly
Rectal: Deferred by Provider
Musculoskeletal: No Clubbing, No Cyanosis and No Edema
Skin: Negative Rash
Neuro: Awake, Alert, Oriented, AO x 3 and Nonfocal/Grossly Intact
[2024-02-24 17:05] LABS: Glucose - Point of Care 64 mg/dl (70-99)
[2024-02-24 17:21] LABS: Glucose - Point of Care 59 mg/dl (70-99)
[2024-02-24] MEDS: LOVENOX 40 MG SC (17:29)
[2024-02-24 17:36] LABS: Glucose - Point of Care 74 mg/dl (70-99)
[2024-02-24] MEDS: NOVOLOG FLEXPEN SC (17:53)
[2024-02-24 20:00] VITALS: BP 152/61
[2024-02-24 20:33] LABS: Glucose - Point of Care 162 mg/dl (70-99)
[2024-02-24] MEDS: LIPITOR 80 MG PO (20:51)
[2024-02-24] MEDS: ASPIR LOW (ENTERIC COATED) 81 MG PO (20:51)
[2024-02-24 21:34] LABS: Glucose - Point of Care 165 mg/dl (70-99)
[2024-02-24 23:10] VITALS: BP 178/72
[2024-02-25 04:37] LABS: Glucose - Point of Care 165 mg/dl (70-99)
[2024-02-25 05:55] VITALS: BP 159/63
[2024-02-25 06:00] VITALS: BMI 36.8
[2024-02-25 06:32] LABS: Blood Urea Nitrogen 40 mg/dl (7-17); Carbon Dioxide 22 mmol/L (22-30); Chloride 105 mmol/L (98-107); Estimated Creatinine Clearance 59 ml/min; Glucose 175 mg/dl (70-99); Potassium 6.1 mmol/L (3.5-5.1); Sodium 136 mmol/L (135-145); eGFR 54.39
--- NOTE | 2024-02-25 06:42 | PTCARENOTE ---
K-6.1, notified MUSEUM PREPARATOR-see MAR
[2024-02-25 07:10] VITALS: BP 121/64
[2024-02-25] MEDS: SYMBICORT 160/4.5 MCG INHALER 1 PUFF INH ×2 (07:57→19:56)
[2024-02-25 08:02] LABS: Glucose - Point of Care 181 mg/dl (70-99)
[2024-02-25] MEDS: LANTUS 0.4 UNITS SC (08:16)
[2024-02-25] MEDS: SODIUM BICARBONATE 50 MEQ IV (08:16)
[2024-02-25] MEDS: SODIUM BICARBONATE 650 MG PO ×3 (08:17→22:28)
[2024-02-25] MEDS: MYFORTIC DELAYED REL. 360 MG PO ×2 (08:17→20:53)
[2024-02-25] MEDS: PROGRAF 4 MG PO ×2 (08:17→20:53)
[2024-02-25] MEDS: APRESOLINE 50 MG PO ×2 (08:17→20:52)
[2024-02-25] MEDS: LEXAPRO 30 MG PO (08:17)
[2024-02-25] MEDS: IMODIUM 2 MG PO (08:18)
[2024-02-25] MEDS: COREG 6.25 MG PO ×2 (08:18→20:53)
[2024-02-25] MEDS: COLACE PO (08:24)
[2024-02-25] MEDS: MIRALAX PO (08:25)
[2024-02-25] MEDS: NOVOLOG FLEXPEN 33 UNITS SC ×2 (08:44→13:03)
[2024-02-25] MEDS: NOVOLOG FLEXPEN-LOW RESISTANCE 1 UNITS SC (08:44)
--- NOTE | 2024-02-25 10:57 | W.PN.HOSP.TC ---
Today's Communication/Plan
-
IV Lasix now, BMP in afternoon. d/w Renal
Assessment / Plan
Assessment / Plan
Impression:
Patient is a 69y F with PMH significant for DM, CKD s/p renal transplant and chronic diarrhea who presents to ED for evaluation s/p fall at home.
DKA.
VIANEY on CKD 2.
Hyperkalemia
Pseudohyponatremia
Hypercalcemia
Leukocytosis
Troponin elevation secondary to nonischemic cardiac injury in the settings of DKA.
Falls at home
Conditions prior to admission:
IDDM
Renal transplant
Immunosuppression with Prograf and CellCept.
ASCVD/carotid artery disease.
Essential hypertension
Asthma.
Obesity with BMI of 36.
Chronic diarrhea
Anxiety/depression.
Plan:
Poorly controlled diabetes globin A1c 12 (hemoglobin A1c 10/25 at 12)
DKA. Corrected sodium with hyperglycemia, patient with elevated anion gap, elevated serum acetone level.
Initiated on IV insulin drip with now normalized anion gap.
Off insulin drip now.
Blood sugars improved overall but still not at goal
Transitioned to subcutaneous insulin Lantus/NovoLog adjusting dose daily. At home Tresiba 36 units twice a day and Humalog 24 units AC with last hemoglobin A1c 12.8. Currently hemoglobin A1c 12.6 and on Lantus 38 units bid and 25 units of NovoLog
AC.
Insulin dose being adjusted daily. Monitor oral intake and renal function.
Advanced to carbohydrate controlled diet
Continue basal bolus protocol.
PT OT
CM for D/C to rehab disposition
VIANEY on CKD 2. Renal transplant status
renal transplant on immunosuppression with CellCept and Prograf.
Intravascularly depleted given DKA, polyuria, diarrhea.
Hyperkalemia is a function of hyperglycemia and acidosis.
Continue bladder scan rule out retention (patient reports incontinence)
Renal ultrasound: Slightly elevated resistive indices in the right lower quadrant transplant kidney which may reflect renal dysfunction and can be seen in the setting of rejection, acute tubular necrosis or other etiologies, nonspecific
ARB, spironolactone has been on hold since admission
Continue CellCept and Prograf. Tacrolimus has been followed and dose being adjusted.
Hyperkalemia with acidosis
? If related to RTA.
Continue temporized with bicarbonate and insulin. IV Lasix today
Consideration of Lokelma, although could not decrease absorption of CellCept and Prograf.
Hyponatremia
Originally pseudohyponatremia given hyperglycemia
Currently with reasonable glucose correction sodium level at 127.
Urine osmolarity/creatinine ordered by nephrology.
Monitor closely
Leukocytosis, likely stress-induced with acidosis. Improving
WBC down from 20 to 7.7 today
Afebrile with no specific complaints suggestive of infection.
Suspect polyuria secondary to hyperglycemia
Urinalysis not consistent with UTI
Blood cultures negative today
Chest x-ray with no acute abnormalities
Monitor closely off antibiotics while she is on immunosuppression.
Hypertension
Cont losartan 50 mg twice a day
Continue hydralazine 50 mg twice a day
Continue carvedilol 6.25 mg twice a day
Holding spironolactone
Monitor blood pressure and adjust medications according
ASCVD/carotid disease
History of TIA
Continue aspirin and statin
Troponin elevation secondary to nonischemic cardiac injury in the settings of DKA peaked at 0.3
Most recent echo 2021 with preserved biventricular function. No documented CAD.
ECG normal sinus rhythm without ischemic changes
Echocardiogram unremarkable and no changes compared to 2021 echocardiogram
Cardiology evaluation appreciated and they signed off today on 02/17.
Falls at home
Neurologic examination with no focal abnormalities
CT scan of the head with no acute abnormalities.
Physical therapy evaluation.
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
Asthma without Exacerbation
- Continue inhaler regimen / albuterol PRN.
Anxiety / Depression
- Patient tearful / depressed in the ED.
- Continue Lexapro. Increased to 30 mg daily.
Obesity due to excess calories
- Affects all aspects of care.
- Encourage healthy diet and increased activity with goal of weight loss.
DVT Prophylaxis: Lovenox
Code Status: Full
Anticipated Discharge: > 48 hours
Subjective/Interval History
-
Date of Service: February 25, 2024
denies any new complaints at present
K is 6.1
Objective Data
-
Labs:
Laboratory Results
02/25/24
05:50
Sodium 136
Potassium 6.1 H*
Chloride 105
Carbon Dioxide 22
BUN 40 H
Creatinine 1.1 H
Glucose 175 H
Calcium 9.0
Vital Signs:
Vital Signs
Temp Pulse Resp BP Pulse Ox
98.1 F 63 16 121/64 96
02/25/24 07:10 02/25/24 08:00 02/25/24 08:00 02/25/24 07:10 02/25/24 08:00
I&O
02/24/24 02/25/24 02/26/24
06:59 06:59 06:59
Intake Total 1080 / 1080 2880 / 2880
Balance 1080 / 1080 2880 / 2880
Physical Exam
-
General: No Apparent Distress
HEENT: Normocephalic and Atraumatic
Respiratory: Negative Wheezes
Cardiac: Regular Rhythm and S1/S2
GI: Soft
Musculoskeletal: No Edema
Neuro: AO x 3
Psych: Calm
Data Reviewed
-
Total Time Spent with Patient (in minutes): 41
Labs: Labs Reviewed by me
[2024-02-25] MEDS: LASIX 20 MG IV (11:43)
[2024-02-25 12:02] LABS: Glucose - Point of Care 116 mg/dl (70-99)
[2024-02-25] MEDS: NOVOLOG FLEXPEN-LOW RESISTANCE SC ×2 (13:02→16:59)
--- NOTE | 2024-02-25 13:43 | W.PN.NEPH.PH ---
Today's Communication / Plan
-
- lasix
- repeat labs
Assessment/Plan
-
Impression
Hyperglycemia
Falls
Diarrhea
AG metabolic acidosis (21) with corrected Sodium
Renal transplant with baseline creatinine of 0.7 (2013)follows Dr Holder
Acute kidney and
Pseudo hyponatremia
Hyperkalemia
Hypertension
Diabetes
PVD
History of sarcoidosis
Hypercalcemia
ASCVD
Asthma
Anxiety and depression
Plan:
VIANEY: cr slow to improve 1.3 (peak 2.0)
prerenal-possible relative hypotension , ARB held
- Hyponatremia sodium better with IVF
renal ultrasound with elevated resistive indices -- likely from ATN
hyperK worse and non anion gap met acidosis --> could this be a type 4 RTA from diabetes?
given bicarb this AM again. encourage excellent blood sugar control. I will also give one time dose lasix to assist with hyperK
Tac level 7.7 (goal 4-7) on 02/20, dose increased 02/18 since previous level was low 3.1 and prior to that was 2.1
cont home dose tac
Maintain mycophenolate at current dose
monitor decreasing h/h
d/w pt
-
-
Date of Service: February 25, 2024
CC / HPI / ROS
-
Chief Complaint:
hypoantremia, K txp
History of Present Illness:
sodium improved at 136, cr better at 1.1,k 6.1, bicarb 22
WBC improving
BP are stable
Review of Systems:
no cp or sob
eating well
no fever
Labs
-
Labs:
WBC 7.7 10^3/uL (4.8-10.8) 02/24/24 08:31
RBC 3.01 10^6/uL (4.20-5.40) L 02/24/24 08:31
Hgb 8.3 g/dL (12.0-16.0) L 02/24/24 08:31
Hct 25.5 % (37.0-47.0) L 02/24/24 08:31
Plt Count 295 10^3/uL (130-400) 02/24/24 08:31
eGFR 54.39 02/25/24 05:50
Phosphorus 2.7 mg/dl (2.5-4.5) 02/17/24 05:40
Albumin 3.8 g/dl (3.5-5.0) 02/16/24 03:10
Physical Exam
-
Vital Signs:
Vital Signs
Temp Pulse Resp BP Pulse Ox
98.1 F 63 16 112/50 96
02/25/24 07:10 02/25/24 08:00 02/25/24 08:00 02/25/24 11:43 02/25/24 12:09
Cardiovascular:: Regular rate and rhythm
Respiratory:: Bilateral: CTA
Lung Excursion:: Normal
Abdomen:: Nontender and Soft
Extremity Edema:: +1: Bilateral:
Bowers Catheter: No
[2024-02-25 15:15] VITALS: BP 153/65
[2024-02-25 16:44] LABS: Glucose - Point of Care 67 mg/dl (70-99)
[2024-02-25] MEDS: NOVOLOG FLEXPEN SC (16:58)
[2024-02-25 17:11] LABS: Glucose - Point of Care 61 mg/dl (70-99)
[2024-02-25 17:21] LABS: Blood Urea Nitrogen 40 mg/dl (7-17); Calcium 9.5 mg/dl (8.4-10.2); Carbon Dioxide 29 mmol/L (22-30); Chloride 101 mmol/L (98-107); Estimated Creatinine Clearance 57 ml/min; Glucose 58 mg/dl (70-99); Potassium 5.6 mmol/L (3.5-5.1); Sodium 138 mmol/L (135-145); eGFR 54.39
[2024-02-25 17:32] LABS: Glucose - Point of Care 58 mg/dl (70-99)
[2024-02-25] MEDS: DEXTROSE 50% SYRINGE 12.5 GRAMS IV (17:35)
[2024-02-25] MEDS: LOVENOX 40 MG SC (17:51)
[2024-02-25 17:57] LABS: Glucose - Point of Care 134 mg/dl (70-99)
--- NOTE | 2024-02-25 18:30 | PTCARENOTE ---
Patient with dinner accu check of 67. Juice given, accucheck than 61. Juice given for second time and accucheck 58. Dr. Colon notified. Dextrose pushed see ADAIR. Acctrevineck after 3rd treatment 134. Lantus dose changed for 20:00 to 15 units. Blood
sugar to be checked per protocol.
[2024-02-25 20:37] LABS: Glucose - Point of Care 149 mg/dl (70-99)
[2024-02-25] MEDS: COLACE 100 MG PO (20:52)
[2024-02-25] MEDS: LANTUS 0.15 UNITS SC (20:54)
[2024-02-25] MEDS: ASPIR LOW (ENTERIC COATED) 81 MG PO (22:28)
[2024-02-25] MEDS: TUMS 1 TABLET PO (22:28)
[2024-02-25] MEDS: LIPITOR 80 MG PO (22:28)
[2024-02-25 22:34] LABS: Glucose - Point of Care 149 mg/dl (70-99)
[2024-02-25 23:34] VITALS: BP 127/68
[2024-02-26 03:50] LABS: Glucose - Point of Care 125 mg/dl (70-99)
[2024-02-26 07:12] LABS: Glucose - Point of Care 163 mg/dl (70-99)
[2024-02-26 07:20] VITALS: BP 160/77
[2024-02-26] MEDS: SYMBICORT 160/4.5 MCG INHALER 1 PUFF INH ×2 (07:52→20:02)
[2024-02-26 08:41] LABS: Hematocrit 28.4 % (37.0-47.0); Hemoglobin 9.1 g/dL (12.0-16.0); Mean Corpuscular Hgb 26.8 pg (27.0-31.0); Mean Corpuscular Volume 83.5 fL (81.0-99.0); Platelet Count 407 10^3/uL (130-400); White Blood Cell Count 8.3 10^3/uL (4.8-10.8)
[2024-02-26 08:52] VITALS: BMI 39.2
[2024-02-26 09:00] LABS: Blood Urea Nitrogen 38 mg/dl (7-17); Calcium 9.5 mg/dl (8.4-10.2); Carbon Dioxide 26 mmol/L (22-30); Chloride 102 mmol/L (98-107); Estimated Creatinine Clearance 64 ml/min; Glucose 148 mg/dl (70-99); Potassium 6.1 mmol/L (3.5-5.1); Sodium 137 mmol/L (135-145); eGFR > 60.00
[2024-02-26] MEDS: LASIX 20 MG IV (09:26)
[2024-02-26] MEDS: MYFORTIC DELAYED REL. 360 MG PO ×2 (09:27→21:31)
[2024-02-26] MEDS: MIRALAX 17 GRAMS PO (09:27)
[2024-02-26] MEDS: PROGRAF 4 MG PO ×2 (09:28→21:31)
[2024-02-26] MEDS: APRESOLINE 50 MG PO ×2 (09:28→21:35)
[2024-02-26] MEDS: SODIUM BICARBONATE 650 MG PO ×3 (09:29→21:31)
[2024-02-26] MEDS: COREG 6.25 MG PO ×2 (09:29→21:35)
[2024-02-26] MEDS: IMODIUM PO (09:29)
[2024-02-26] MEDS: LOKELMA 5 GRAM PO (09:29)
[2024-02-26] MEDS: COLACE 100 MG PO (09:29)
--- NOTE | 2024-02-26 09:29 | W.PN.HOSP.TC ---
Today's Communication/Plan
-
adjust Lantus/aspart down
further Lasix + Lokelma for hyperkalemia per Nephrology
Assessment / Plan
Assessment / Plan
Impression:
Patient is a 69y F with PMH significant for DM, CKD s/p renal transplant and chronic diarrhea who presents to ED for evaluation s/p fall at home.
DKA.
VIANEY on CKD 2.
Hyperkalemia
Pseudohyponatremia
Hypercalcemia
Leukocytosis
Troponin elevation secondary to nonischemic cardiac injury in the settings of DKA.
Falls at home
Conditions prior to admission:
IDDM
Renal transplant
Immunosuppression with Prograf and CellCept.
ASCVD/carotid artery disease.
Essential hypertension
Asthma.
Obesity with BMI of 36.
Chronic diarrhea
Anxiety/depression.
Plan:
Poorly controlled diabetes globin A1c 12 (hemoglobin A1c 10/25 at 12)
DKA. Corrected sodium with hyperglycemia, patient with elevated anion gap, elevated serum acetone level.
Initiated on IV insulin drip with now normalized anion gap.
Off insulin drip now.
Blood sugars improved overall but still not at goal
Transitioned to subcutaneous insulin Lantus/NovoLog adjusting dose daily. At home Tresiba 36 units twice a day and Humalog 24 units AC with last hemoglobin A1c 12.8. Currently hemoglobin A1c 12.6 and on Lantus 38 units bid and 25 units of NovoLog
AC. Insulin doses adjusted down for hypoglycemia 02/24
Insulin dose being adjusted daily. Monitor oral intake and renal function.
Advanced to carbohydrate controlled diet
Continue basal bolus protocol.
PT OT
CM for D/C to rehab disposition
VIANEY on CKD 2. Renal transplant status
renal transplant on immunosuppression with CellCept and Prograf.
Intravascularly depleted given DKA, polyuria, diarrhea.
Hyperkalemia is a function of hyperglycemia and acidosis.
Continue bladder scan rule out retention (patient reports incontinence)
Renal ultrasound: Slightly elevated resistive indices in the right lower quadrant transplant kidney which may reflect renal dysfunction and can be seen in the setting of rejection, acute tubular necrosis or other etiologies, nonspecific
ARB, spironolactone has been on hold since admission
Continue CellCept and Prograf. Tacrolimus has been followed and dose being adjusted.
Hyperkalemia with acidosis
? If related to RTA.
Continue temporized with bicarbonate and insulin. IV Lasix today continues. Lokelma also being given today
Consideration of Lokelma, although could not decrease absorption of CellCept and Prograf.
Hyponatremia
Originally pseudohyponatremia given hyperglycemia
Currently with reasonable glucose correction sodium level at 127.
Urine osmolarity/creatinine ordered by nephrology.
Monitor closely
Leukocytosis, likely stress-induced with acidosis. Improving
WBC down from 20 to 7.7 today
Afebrile with no specific complaints suggestive of infection.
Suspect polyuria secondary to hyperglycemia
Urinalysis not consistent with UTI
Blood cultures negative today
Chest x-ray with no acute abnormalities
Monitor closely off antibiotics while she is on immunosuppression.
Hypertension
Cont losartan 50 mg twice a day
Continue hydralazine 50 mg twice a day
Continue carvedilol 6.25 mg twice a day
Holding spironolactone
Monitor blood pressure and adjust medications according
ASCVD/carotid disease
History of TIA
Continue aspirin and statin
Troponin elevation secondary to nonischemic cardiac injury in the settings of DKA peaked at 0.3
Most recent echo 2021 with preserved biventricular function. No documented CAD.
ECG normal sinus rhythm without ischemic changes
Echocardiogram unremarkable and no changes compared to 2021 echocardiogram
Cardiology evaluation appreciated and they signed off today on 02/17.
Falls at home
Neurologic examination with no focal abnormalities
CT scan of the head with no acute abnormalities.
Physical therapy evaluation.
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
Asthma without Exacerbation
- Continue inhaler regimen / albuterol PRN.
Anxiety / Depression
- Patient tearful / depressed in the ED.
- Continue Lexapro. Increased to 30 mg daily.
Obesity due to excess calories
- Affects all aspects of care.
- Encourage healthy diet and increased activity with goal of weight loss.
DVT Prophylaxis: Lovenox
Code Status: Full
Anticipated Discharge: > 48 hours
Subjective/Interval History
-
Date of Service: February 26, 2024
yesterday with hypoglycemia, AM sugars more stable
Objective Data
-
Labs:
Laboratory Results
02/26/24
07:37
WBC 8.3
Hgb 9.1 L
Hct 28.4 L
Plt Count 407 H D
Sodium 137
Potassium 6.1 H*
Chloride 102
Carbon Dioxide 26
BUN 38 H
Creatinine 1.0
Glucose 148 H
Calcium 9.5
Vital Signs:
Vital Signs
Temp Pulse Resp BP Pulse Ox
98.1 F 62 16 160/77 96
02/26/24 07:20 02/26/24 07:54 02/26/24 07:54 02/26/24 07:20 02/26/24 07:54
I&O
02/25/24 02/26/24 02/27/24
06:59 06:59 06:59
Intake Total 2880 / 2880 1200 / 1200
Balance 2880 / 2880 1200 / 1200
Physical Exam
-
General: No Apparent Distress
HEENT: Normocephalic and Atraumatic
Respiratory: Negative Wheezes
Cardiac: Regular Rhythm and S1/S2
GI: Soft
Genito-urinary: No Costovertebral Tender
Neuro: AO x 3
Psych: Calm
Data Reviewed
-
Total Time Spent with Patient (in minutes): 41
Labs: Labs Reviewed by me
[2024-02-26] MEDS: LANTUS SC (09:43)
[2024-02-26] MEDS: NOVOLOG FLEXPEN-LOW RESISTANCE 1 UNITS SC ×2 (09:44→18:19)
[2024-02-26] MEDS: NOVOLOG FLEXPEN SC (09:45)
[2024-02-26] MEDS: LEXAPRO 30 MG PO (09:46)
[2024-02-26] MEDS: LANTUS 0.4 UNITS SC ×2 (09:53→22:56)
[2024-02-26] MEDS: NOVOLOG FLEXPEN 10 UNITS SC ×3 (09:54→18:20)
[2024-02-26] MEDS: PROTONIX 40 MG PO (09:55)
[2024-02-26 11:54] LABS: Glucose - Point of Care 214 mg/dl (70-99)
[2024-02-26] MEDS: NOVOLOG FLEXPEN-LOW RESISTANCE 2 UNITS SC (12:12)
--- NOTE | 2024-02-26 12:35 | W.PN.NEPH.PH ---
Today's Communication / Plan
-
- lokelma + lasix
- repeat BMP in afternoon
Assessment/Plan
-
Impression
Hyperglycemia
Falls
Diarrhea
AG metabolic acidosis (21) with corrected Sodium
Renal transplant with baseline creatinine of 0.7 (2013)follows Dr Holder
Acute kidney and
Pseudo hyponatremia
Hyperkalemia
Hypertension
Diabetes
PVD
History of sarcoidosis
Hypercalcemia
ASCVD
Asthma
Anxiety and depression
Plan:
VIANEY: cr slow to improve 1.0 (peak 2.0)
prerenal-possible relative hypotension , ARB held
renal ultrasound with elevated resistive indices -- likely from ATN
Hyponatremia: sodium better with IVF
HyperK
hyperK worse and non anion gap met acidosis --> could this be a type 4 RTA from diabetes?
repeat lasix and initiated on lokelma
worried about interaction with tac
will check level tomorrow AM
Tac level 7.7 (goal 4-7) on 02/20, dose increased 02/18 since previous level was low 3.1 and prior to that was 2.1
cont home dose tac
Maintain mycophenolate at current dose
monitor decreasing h/h
d/w pt
-
-
Date of Service: February 26, 2024
CC / HPI / ROS
-
Chief Complaint:
hypoantremia, K txp
History of Present Illness:
sodium improved at 136, cr better at 1.1,k 6.1, bicarb 26
WBC improving
BP are stable
Review of Systems:
no cp or sob
eating well
no fever
Labs
-
Labs:
WBC 8.3 10^3/uL (4.8-10.8) 02/26/24 07:37
RBC 3.40 10^6/uL (4.20-5.40) L 02/26/24 07:37
Hgb 9.1 g/dL (12.0-16.0) L 02/26/24 07:37
Hct 28.4 % (37.0-47.0) L 02/26/24 07:37
Plt Count 407 10^3/uL (130-400) H D 02/26/24 07:37
eGFR > 60.00 02/26/24 07:37
Phosphorus 2.7 mg/dl (2.5-4.5) 02/17/24 05:40
Albumin 3.8 g/dl (3.5-5.0) 02/16/24 03:10
Physical Exam
-
Vital Signs:
Vital Signs
Temp Pulse Resp BP Pulse Ox
98.1 F 72 16 160/77 96
02/26/24 07:20 02/26/24 09:29 02/26/24 07:54 02/26/24 09:29 02/26/24 07:54
Cardiovascular:: Regular rate and rhythm
Respiratory:: Bilateral: CTA
Lung Excursion:: Normal
Abdomen:: Nontender and Soft
Extremity Edema:: +1: Bilateral:
Bowers Catheter: No
[2024-02-26 14:15] LABS: Blood Urea Nitrogen 36 mg/dl (7-17); Calcium 9.7 mg/dl (8.4-10.2); Carbon Dioxide 28 mmol/L (22-30); Chloride 99 mmol/L (98-107); Estimated Creatinine Clearance 59 ml/min; Glucose 186 mg/dl (70-99); Potassium 5.8 mmol/L (3.5-5.1); Sodium 136 mmol/L (135-145); eGFR 54.39
--- NOTE | 2024-02-26 14:38 | PTCARENOTE ---
Potassium level this morning 6.1. Lasix 20 mg IV and Lokelma given as ordered. Repeat potassium 5.8 - nephrology notified. Ordered 40 addition IV lasix.
[2024-02-26] MEDS: LASIX 40 MG IV (14:47)
--- NOTE | 2024-02-26 15:15 | PTCARENOTE ---
Repeat potassium 5.8. Hospitalist and nephrology made aware. Additional 40 mg IV lasix given as ordered.
[2024-02-26 15:29] VITALS: BP 193/72
[2024-02-26] MEDS: LOVENOX 40 MG SC (16:58)
[2024-02-26 17:33] LABS: Glucose - Point of Care 150 mg/dl (70-99)
[2024-02-26 21:25] LABS: Glucose - Point of Care 224 mg/dl (70-99)
[2024-02-26] MEDS: ASPIR LOW (ENTERIC COATED) 81 MG PO (21:31)
[2024-02-26] MEDS: LIPITOR 80 MG PO (21:31)
[2024-02-26 23:30] VITALS: BP 161/63
[2024-02-26] MEDS: COLACE PO (23:37)
[2024-02-27 06:00] VITALS: BMI 38.4
[2024-02-27 07:19] LABS: Glucose - Point of Care 94 mg/dl (70-99)
[2024-02-27] MEDS: SYMBICORT 160/4.5 MCG INHALER 1 PUFF INH ×2 (07:56→19:47)
[2024-02-27 08:00] VITALS: BP 157/63
[2024-02-27 08:07] LABS: Hematocrit 27.3 % (37.0-47.0); Hemoglobin 8.8 g/dL (12.0-16.0); Mean Corp Hgb Conc. 32.2 g/dL (33.0-37.0); Mean Corpuscular Hgb 27.5 pg (27.0-31.0); Mean Corpuscular Volume 85.3 fL (81.0-99.0); Mean Platelet Volume 10.2 fL (7.4-10.4); Platelet Count 371 10^3/uL (130-400); Red Cell Dist. Width 13.7 % (11.5-14.5); White Blood Cell Count 8.5 10^3/uL (4.8-10.8)
[2024-02-27] MEDS: APRESOLINE 50 MG PO ×2 (08:27→21:04)
[2024-02-27] MEDS: MIRALAX 17 GRAMS PO (08:28)
[2024-02-27] MEDS: LEXAPRO 30 MG PO (08:28)
[2024-02-27] MEDS: PROGRAF 4 MG PO ×2 (08:28→20:59)
[2024-02-27] MEDS: MYFORTIC DELAYED REL. 360 MG PO ×2 (08:28→20:59)
[2024-02-27] MEDS: NOVOLOG FLEXPEN-LOW RESISTANCE SC ×2 (08:29→12:34)
[2024-02-27] MEDS: PROTONIX 40 MG PO (08:29)
[2024-02-27] MEDS: COLACE 100 MG PO ×2 (08:29→21:00)
[2024-02-27] MEDS: COREG 6.25 MG PO ×2 (08:29→21:00)
[2024-02-27] MEDS: SODIUM BICARBONATE 650 MG PO ×3 (08:29→21:05)
[2024-02-27] MEDS: NOVOLOG FLEXPEN 10 UNITS SC ×3 (08:30→16:35)
[2024-02-27] MEDS: IMODIUM PO (08:31)
[2024-02-27 08:36] LABS: Blood Urea Nitrogen 35 mg/dl (7-17); Calcium 9.4 mg/dl (8.4-10.2); Carbon Dioxide 27 mmol/L (22-30); Chloride 102 mmol/L (98-107); Estimated Creatinine Clearance 64 ml/min; Glucose 94 mg/dl (70-99); Potassium 5.3 mmol/L (3.5-5.1); Sodium 138 mmol/L (135-145); eGFR > 60.00
--- NOTE | 2024-02-27 11:01 | PN.DE.MGMTRT ---
Insulin Management
- -
02/27/2024: Diabetes Management F/U:
Patient admitted 02/15 s/p fall at home. PMH CHF, HTN, HCL, asthma, diabetes, renal failure with transplant, hypothyroid, depression, carotid artery stenosis, migraine, sarcoidosis, diverticulitis, pancreatitis, IBS. Prior to admission patient was
taking Tresiba 36 units BID with Humalog 24 units AC.
States she was diagnosed at age 22, did take oral diabetes meds for about 5 years then switched to insulin. She currently sees Dr. Sallie Duffy endocrine for diabetes management patient states Dr. Duffy told her she was probably
misdiagnosed and has type 1 diabetes.
Glucose on admission 609. 8/15 AM labs indicated GAP of 18, insulin infusion was started. Current A1C 12.6%, Last A1C 12.8% October 2023. 02/22 Cr 1.4, eGFR 40.73.
Patient is awake, A/O x3, sitting up in bed, offers no complaints, able to discuss diabetes management.
Pt was transitioned from IV insulin to subcutaneous insulin on 02/17.
02/24 Insulin doses adjusted down from NovoLog 33 units AC to 10 units for 2 consecutive episodes of hypoglycemia at dinner time on 02/23 & 02/24
02/25 premeal range 150 to 214, up to 224 @ HS, fasting down to 94(V) this AM
Will make no changes to current regimen: Lantus 40 units BID, NovoLog 10 units AC and low corrective with meals
Diabetes History
- -
Type of Diabetes: 2 requiring insulin
Pre-Admission Diabetes Regimen
02/26/24 02/27/24
13:45 06:52
Creatinine 1.1 H 1.0
Lab Results
Hemoglobin A1c 12.6 % (4.0-5.6) H 02/16/24 11:45
Insulin Pump Settings
IP Diabetes Regimen
02/26/24 02/26/24 02/26/24
11:53 13:45 17:32
Glucose 186 H
POC Glucose 214 H 150 H
02/26/24 02/27/24 02/27/24
21:24 06:52 07:18
Glucose 94
POC Glucose 224 H 94
Meal type: Dinner
Meal type: Lunch
Amount consumed: 100%
Amount consumed: 100%
Patient Education
--- NOTE | 2024-02-27 11:12 | PTCARENOTE ---
Accu check this morning 94 prior to breakfast. Hospitalist notified. Order to hold morning Lantus. Will continue accu checks before meals. Patient given 10 units of regular insulin prior to breakfast as ordered.
[2024-02-27 11:22] VITALS: BP 171/59; PULSE 58; O2SAT 97
--- NOTE | 2024-02-27 12:10 | W.PN.NEPH.PH ---
Today's Communication / Plan
-
lokelma
Assessment/Plan
-
Impression
Hyperglycemia
Falls
Diarrhea
AG metabolic acidosis (21) with corrected Sodium
Renal transplant with baseline creatinine of 0.7 (2013)follows Dr Holder
Acute kidney and
Pseudo hyponatremia
Hyperkalemia
Hypertension
Diabetes
PVD
History of sarcoidosis
Hypercalcemia
ASCVD
Asthma
Anxiety and depression
Plan:
holding arb/spironolactone still
stop lovenox
lokelma
SCDs
follow BMP
hope to restart losartan tomorrow
encouraged ambulation
-
-
Date of Service: February 27, 2024
CC / HPI / ROS
-
Chief Complaint:
hypoantremia, K txp
History of Present Illness:
sodium improved at 138
Cr 1.0
K up to 5.2
BP are stable
Review of Systems:
no cp or sob
eating well
no fever
Labs
-
Labs:
WBC 8.5 10^3/uL (4.8-10.8) 02/27/24 06:52
RBC 3.20 10^6/uL (4.20-5.40) L 02/27/24 06:52
Hgb 8.8 g/dL (12.0-16.0) L 02/27/24 06:52
Hct 27.3 % (37.0-47.0) L 02/27/24 06:52
Plt Count 371 10^3/uL (130-400) 02/27/24 06:52
Sodium 138 mmol/L (135-145) 02/27/24 06:52
Potassium 5.3 mmol/L (3.5-5.1) H 02/27/24 06:52
Chloride 102 mmol/L (98-107) 02/27/24 06:52
Carbon Dioxide 27 mmol/L (22-30) 02/27/24 06:52
BUN 35 mg/dl (7-17) H 02/27/24 06:52
Creatinine 1.0 mg/dL (0.6-1.0) 02/27/24 06:52
eGFR > 60.00 02/27/24 06:52
Glucose 94 mg/dl (70-99) 02/27/24 06:52
Calcium 9.4 mg/dl (8.4-10.2) 02/27/24 06:52
Phosphorus 2.7 mg/dl (2.5-4.5) 02/17/24 05:40
Albumin 3.8 g/dl (3.5-5.0) 02/16/24 03:10
Physical Exam
-
Vital Signs:
Vital Signs
Temp Pulse Resp BP Pulse Ox
98.6 F 61 16 161/63 96
02/27/24 08:00 02/27/24 08:29 02/27/24 08:00 02/27/24 08:29 02/27/24 11:07
Cardiovascular:: Regular rate and rhythm
Respiratory:: Bilateral: CTA
Lung Excursion:: Normal
Abdomen:: Nontender and Soft
Bowel Sounds:: Normal
Extremity Edema:: +1: Bilateral:
[2024-02-27] MEDS: LOKELMA 10 GRAM PO (12:21)
[2024-02-27 12:25] LABS: Glucose - Point of Care 131 mg/dl (70-99)
--- NOTE | 2024-02-27 15:03 | W.PN.HOSP.TC ---
Today's Communication/Plan
-
Reduce insulin dose due to recurrent hypoglycemia
Monitor oral intake
Lokelma 10
Follow BMP
Assessment / Plan
Assessment / Plan
Impression:
Patient is a 69y F with PMH significant for DM, CKD s/p renal transplant and chronic diarrhea who presents to ED for evaluation s/p fall at home.
DKA.
VIANEY on CKD 2.
Hyperkalemia
Pseudohyponatremia
Hypercalcemia
Leukocytosis
Troponin elevation secondary to nonischemic cardiac injury in the settings of DKA.
Falls at home
Conditions prior to admission:
IDDM
Renal transplant
Immunosuppression with Prograf and CellCept.
ASCVD/carotid artery disease.
Essential hypertension
Asthma.
Obesity with BMI of 36.
Chronic diarrhea
Anxiety/depression.
Plan:
Poorly controlled diabetes globin A1c 12 (hemoglobin A1c 10/25 at 12)
DKA. Corrected sodium with hyperglycemia, patient with elevated anion gap, elevated serum acetone level.
Initiated on IV insulin drip with now normalized anion gap.
Off insulin drip now.
Blood sugars improved overall but still not at goal
Transitioned to subcutaneous insulin Lantus/NovoLog adjusting dose daily. At home Tresiba 36 units twice a day and Humalog 24 units AC with last hemoglobin A1c 12.8. Currently hemoglobin A1c 12.6 and on Lantus 38 units bid and 25 units of NovoLog
AC. Insulin doses adjusted down for hypoglycemia 02/24, 02/26
Insulin dose being adjusted daily. Monitor oral intake and renal function.
Advanced to carbohydrate controlled diet
Continue basal bolus protocol.
PT OT
CM for D/C to rehab disposition
VIANEY on CKD 2. Renal transplant status
renal transplant on immunosuppression with CellCept and Prograf.
Intravascularly depleted given DKA, polyuria, diarrhea.
Hyperkalemia is a function of hyperglycemia and acidosis.
Continue bladder scan rule out retention (patient reports incontinence)
Renal ultrasound: Slightly elevated resistive indices in the right lower quadrant transplant kidney which may reflect renal dysfunction and can be seen in the setting of rejection, acute tubular necrosis or other etiologies, nonspecific
ARB, spironolactone has been on hold since admission
Continue CellCept and Prograf. Tacrolimus has been followed and dose being adjusted.
Hyperkalemia with acidosis
? If related to RTA.
Continue temporized with bicarbonate and insulin. Status post Lasix on 02/25. Continue Lokelma. Hold further Lovenox with concern for related hyperkalemia.
Consideration of Lokelma, although could not decrease absorption of CellCept and Prograf.
Hyponatremia
Originally pseudohyponatremia given hyperglycemia
Currently with reasonable glucose correction sodium level at 127.
Urine osmolarity/creatinine ordered by nephrology.
Monitor closely
Leukocytosis, likely stress-induced with acidosis. Improving
WBC down from 20 to 7.7 today
Afebrile with no specific complaints suggestive of infection.
Suspect polyuria secondary to hyperglycemia
Urinalysis not consistent with UTI
Blood cultures negative today
Chest x-ray with no acute abnormalities
Monitor closely off antibiotics while she is on immunosuppression.
Hypertension
Cont losartan 50 mg twice a day
Continue hydralazine 50 mg twice a day
Continue carvedilol 6.25 mg twice a day
Holding spironolactone
Monitor blood pressure and adjust medications according
ASCVD/carotid disease
History of TIA
Continue aspirin and statin
Troponin elevation secondary to nonischemic cardiac injury in the settings of DKA peaked at 0.3
Most recent echo 2021 with preserved biventricular function. No documented CAD.
ECG normal sinus rhythm without ischemic changes
Echocardiogram unremarkable and no changes compared to 2021 echocardiogram
Cardiology evaluation appreciated and they signed off today on 02/17.
Falls at home
Neurologic examination with no focal abnormalities
CT scan of the head with no acute abnormalities.
Physical therapy evaluation.
manager area for discharge disposition to rehab.
Asthma without Exacerbation
- Continue inhaler regimen / albuterol PRN.
Anxiety / Depression
- Patient tearful / depressed in the ED.
- Continue Lexapro. Increased to 30 mg daily.
Obesity due to excess calories
- Affects all aspects of care.
- Encourage healthy diet and increased activity with goal of weight loss.
DVT Prophylaxis: Lovenox held with concern for hyperkalemia. Mechanical.
Code Status: Full
Anticipated Discharge: 24 - 48 hours
Subjective/Interval History
-
Date of Service: February 27, 2024
Objective Data
-
Labs:
Laboratory Results
02/27/24
06:52
WBC 8.5
Hgb 8.8 L
Hct 27.3 L
Plt Count 371
Sodium 138
Potassium 5.3 H
Chloride 102
Carbon Dioxide 27
BUN 35 H
Creatinine 1.0
Glucose 94
Calcium 9.4
Vital Signs:
Vital Signs
Temp Pulse Resp BP Pulse Ox
98.6 F 61 16 161/63 96
02/27/24 08:00 02/27/24 08:29 02/27/24 08:00 02/27/24 08:29 02/27/24 11:07
I&O
02/26/24 02/27/24 02/28/24
06:59 06:59 06:59
Intake Total 1200 / 1200 1020 / 1020
Balance 1200 / 1200 1020 / 1020
Physical Exam
-
General: No Apparent Distress
HEENT: Normocephalic and Atraumatic
Respiratory: Negative Wheezes
Cardiac: Regular Rhythm and S1/S2
GI: Soft
Genito-urinary: No Costovertebral Tender
Neuro: AO x 3
Psych: Calm
[2024-02-27 16:00] VITALS: BP 161/60
[2024-02-27 16:47] LABS: Glucose - Point of Care 187 mg/dl (70-99)
[2024-02-27] MEDS: NOVOLOG FLEXPEN-LOW RESISTANCE 1 UNITS SC (16:47)
[2024-02-27] MEDS: LIPITOR 80 MG PO (21:05)
[2024-02-27] MEDS: ASPIR LOW (ENTERIC COATED) 81 MG PO (21:05)
[2024-02-27 21:39] LABS: Glucose - Point of Care 145 mg/dl (70-99)
[2024-02-27] MEDS: LANTUS 0.36 UNITS SC (21:47)
[2024-02-27 23:23] VITALS: BP 142/51
[2024-02-28 06:00] VITALS: BMI 38.8
[2024-02-28 07:34] VITALS: BP 187/82
[2024-02-28] MEDS: SYMBICORT 160/4.5 MCG INHALER 1 PUFF INH ×2 (08:08→20:13)
--- NOTE | 2024-02-28 08:10 | PN.DE.MGMTRT ---
Insulin Management
- -
02/28/2024: Diabetes Management Follow up:
Patient admitted 02/15 s/p fall at home. PMH CHF, HTN, HCL, asthma, diabetes, renal failure with transplant, hypothyroid, depression, carotid artery stenosis, migraine, sarcoidosis, diverticulitis, pancreatitis, IBS. Prior to admission patient was
taking Tresiba 36 units BID with Humalog 24 units AC.
States she was diagnosed at age 22, did take oral diabetes meds for about 5 years then switched to insulin. She currently sees Dr. Sallie Duffy endocrine for diabetes management patient states Dr. Duffy told her she was probably
misdiagnosed and has type 1 diabetes.
Glucose on admission 609. 8/15 AM labs indicated GAP of 18, insulin infusion was started. Current A1C 12.6%, Last A1C 12.8% October 2023. 02/22 Cr 1.4, eGFR 40.73.
Patient sleeping soundly, not disturbed.
Pt was transitioned from IV insulin to subcutaneous insulin on 02/17.
02/24 Insulin doses adjusted down from NovoLog 33 units AC to 10 units for 2 consecutive episodes of hypoglycemia at dinner time on 02/23 & 02/24
02/26 premeal range 94 to 187, fasting glucose 162 this AM.
Will make no changes to current regimen: Lantus 36 units BID, NovoLog 10 units AC and low corrective with meals
Diabetes History
- -
Type of Diabetes: 1
Pre-Admission Diabetes Regimen
02/27/24
06:52
Creatinine 1.0
Lab Results
Hemoglobin A1c 12.6 % (4.0-5.6) H 02/16/24 11:45
Insulin Pump Settings
IP Diabetes Regimen
02/27/24 02/27/24 02/27/24
06:52 12:24 16:44
Glucose 94
POC Glucose 131 H 187 H
02/27/24
21:38
Glucose
POC Glucose 145 H
Patient Education
[2024-02-28 08:29] LABS: Glucose - Point of Care 162 mg/dl (70-99)
[2024-02-28] MEDS: NOVOLOG FLEXPEN 10 UNITS SC ×3 (08:48→17:20)
[2024-02-28] MEDS: NOVOLOG FLEXPEN-LOW RESISTANCE 1 UNITS SC ×2 (08:51→17:20)
[2024-02-28 08:57] LABS: Hematocrit 30.8 % (37.0-47.0); Mean Corp Hgb Conc. 32.5 g/dL (33.0-37.0); Mean Corpuscular Hgb 27.9 pg (27.0-31.0); Mean Corpuscular Volume 85.8 fL (81.0-99.0); Mean Platelet Volume 10.1 fL (7.4-10.4); Platelet Count 408 10^3/uL (130-400); Red Blood Cell Count 3.59 10^6/uL (4.20-5.40); Red Cell Dist. Width 13.7 % (11.5-14.5); White Blood Cell Count 9.2 10^3/uL (4.8-10.8)
[2024-02-28] MEDS: MYFORTIC DELAYED REL. 360 MG PO ×2 (09:06→20:04)
[2024-02-28] MEDS: PROTONIX 40 MG PO (09:06)
[2024-02-28] MEDS: PROGRAF 4 MG PO ×2 (09:06→20:03)
[2024-02-28] MEDS: APRESOLINE 50 MG PO (09:07)
[2024-02-28] MEDS: IMODIUM PO (09:07)
[2024-02-28] MEDS: COREG 6.25 MG PO ×2 (09:07→20:00)
[2024-02-28] MEDS: COLACE 100 MG PO ×2 (09:07→20:01)
[2024-02-28] MEDS: MIRALAX PO (09:07)
[2024-02-28] MEDS: SODIUM BICARBONATE 650 MG PO ×3 (09:07→21:22)
[2024-02-28] MEDS: LEXAPRO 30 MG PO (09:09)
[2024-02-28] MEDS: LANTUS 0.36 UNITS SC ×2 (09:21→21:45)
[2024-02-28 10:06] LABS: Blood Urea Nitrogen 31 mg/dl (7-17); Calcium 9.5 mg/dl (8.4-10.2); Carbon Dioxide 24 mmol/L (22-30); Chloride 103 mmol/L (98-107); Estimated Creatinine Clearance 58 ml/min; Glucose 145 mg/dl (70-99); Potassium 5.3 mmol/L (3.5-5.1); Sodium 138 mmol/L (135-145); eGFR 54.39
--- NOTE | 2024-02-28 11:28 | W.PN.NEPH.PH ---
Today's Communication / Plan
-
lasix
Assessment/Plan
-
Impression
Hyperglycemia
Falls
Diarrhea
AG metabolic acidosis (21) with corrected Sodium
Renal transplant with baseline creatinine of 0.7 (2013)follows Dr Hodler
Acute kidney and
Pseudo hyponatremia
Hyperkalemia
Hypertension
Diabetes
PVD
History of sarcoidosis
Hypercalcemia
ASCVD
Asthma
Anxiety and depression
Plan:
holding spironolactone still
stopped lovenox
lokelma again
SCDs
follow BMP
restart losartan 50mg daily
increase hydralazine
lasix 40mg daily for edema, reduce to 20mg daily once better
could theoretically go home with [facility] and close f/u with Dr. Holder
-
-
Date of Service: February 28, 2024
CC / HPI / ROS
-
Chief Complaint:
hypoantremia, K txp
History of Present Illness:
sodium improved at 138
Cr 1.1
K up to 5.3
BP are stable high
Review of Systems:
no cp or sob
eating well
no fever
Labs
-
Labs:
WBC 9.2 10^3/uL (4.8-10.8) 02/28/24 08:01
RBC 3.59 10^6/uL (4.20-5.40) L 02/28/24 08:01
Hgb 10.0 g/dL (12.0-16.0) L 02/28/24 08:01
Hct 30.8 % (37.0-47.0) L 02/28/24 08:01
Plt Count 408 10^3/uL (130-400) H 02/28/24 08:01
Sodium 138 mmol/L (135-145) 02/28/24 08:01
Potassium 5.3 mmol/L (3.5-5.1) H 02/28/24 08:01
Chloride 103 mmol/L (98-107) 02/28/24 08:01
Carbon Dioxide 24 mmol/L (22-30) 02/28/24 08:01
BUN 31 mg/dl (7-17) H 02/28/24 08:01
Creatinine 1.1 mg/dL (0.6-1.0) H 02/28/24 08:01
eGFR 54.39 02/28/24 08:01
Glucose 145 mg/dl (70-99) H 02/28/24 08:01
Calcium 9.5 mg/dl (8.4-10.2) 02/28/24 08:01
Phosphorus 2.7 mg/dl (2.5-4.5) 02/17/24 05:40
Albumin 3.8 g/dl (3.5-5.0) 02/16/24 03:10
Physical Exam
-
Vital Signs:
Vital Signs
Temp Pulse Resp BP Pulse Ox
98.3 F 70 18 187/82 96
02/28/24 07:34 02/28/24 07:34 02/28/24 07:34 02/28/24 07:34 02/28/24 07:34
Cardiovascular:: Regular rate and rhythm
Respiratory:: Bilateral: Coarse
Lung Excursion:: Normal
Abdomen:: Nontender and Soft
Bowel Sounds:: Normal
Extremity Edema:: +2: Bilateral:
[2024-02-28] MEDS: LASIX 40 MG PO (12:01)
[2024-02-28] MEDS: LOKELMA 10 GRAM PO (12:01)
[2024-02-28 12:18] LABS: Glucose - Point of Care 236 mg/dl (70-99)
[2024-02-28] MEDS: NOVOLOG FLEXPEN-LOW RESISTANCE 2 UNITS SC (12:23)
--- NOTE | 2024-02-28 13:57 | W.PN.HOSP.TC ---
Today's Communication/Plan
-
Adjusting insulin dose for hypoglycemia.
Lokelma, Lasix
Reinstate ARB
Follow BMP
Assessment / Plan
Assessment / Plan
Impression:
Patient is a 69y F with PMH significant for DM, CKD s/p renal transplant and chronic diarrhea who presents to ED for evaluation s/p fall at home.
DKA.
VIANEY on CKD 2.
Hyperkalemia
Pseudohyponatremia
Hypercalcemia
Leukocytosis
Troponin elevation secondary to nonischemic cardiac injury in the settings of DKA.
Falls at home
Conditions prior to admission:
IDDM
Renal transplant
Immunosuppression with Prograf and CellCept.
ASCVD/carotid artery disease.
Essential hypertension
Asthma.
Obesity with BMI of 36.
Chronic diarrhea
Anxiety/depression.
Plan:
Poorly controlled diabetes globin A1c 12 (hemoglobin A1c 10/25 at 12)
DKA. Corrected sodium with hyperglycemia, patient with elevated anion gap, elevated serum acetone level.
Initiated on IV insulin drip with now normalized anion gap.
Off insulin drip now.
Blood sugars improved overall but still not at goal
Transitioned to subcutaneous insulin Lantus/NovoLog adjusting dose daily. At home Tresiba 36 units twice a day and Humalog 24 units AC with last hemoglobin A1c 12.8.
Insulin dose being adjusted daily according to recent hypoglycemia. Monitor oral intake and renal function.
Advanced to carbohydrate controlled diet
Continue basal bolus protocol.
PT OT
CM for D/C to rehab disposition
VIANEY on CKD 2. Renal transplant status
renal transplant on immunosuppression with CellCept and Prograf.
Intravascularly depleted given DKA, polyuria, diarrhea.
Hyperkalemia is a function of hyperglycemia and acidosis.
Continue bladder scan rule out retention (patient reports incontinence)
Renal ultrasound: Slightly elevated resistive indices in the right lower quadrant transplant kidney which may reflect renal dysfunction and can be seen in the setting of rejection, acute tubular necrosis or other etiologies, nonspecific
ARB, spironolactone has been on hold since admission
Continue CellCept and Prograf. Tacrolimus has been followed and dose being adjusted.
Hyperkalemia with acidosis
? If related to RTA.
Continue temporized with bicarbonate and insulin.
Consideration of Lokelma, although could not decrease absorption of CellCept and Prograf.
Continue Lokelma.
Lasix as per nephrology.
Resume ARB.
Follow BMP
Hyponatremia
Originally pseudohyponatremia given hyperglycemia
Currently with reasonable glucose correction sodium level at 127.
Urine osmolarity/creatinine ordered by nephrology.
Monitor closely
Leukocytosis, likely stress-induced with acidosis. Improving
WBC down from 20 to 7.7 today
Afebrile with no specific complaints suggestive of infection.
Suspect polyuria secondary to hyperglycemia
Urinalysis not consistent with UTI
Blood cultures negative today
Chest x-ray with no acute abnormalities
Monitor closely off antibiotics while she is on immunosuppression.
Hypertension
Cont losartan 50 mg twice a day
Continue hydralazine 50 mg twice a day
Continue carvedilol 6.25 mg twice a day
Holding spironolactone
Monitor blood pressure and adjust medications according
ASCVD/carotid disease
History of TIA
Continue aspirin and statin
Troponin elevation secondary to nonischemic cardiac injury in the settings of DKA peaked at 0.3
Most recent echo 2021 with preserved biventricular function. No documented CAD.
ECG normal sinus rhythm without ischemic changes
Echocardiogram unremarkable and no changes compared to 2021 echocardiogram
Cardiology evaluation appreciated and they signed off today on 02/17.
Falls at home
Neurologic examination with no focal abnormalities
CT scan of the head with no acute abnormalities.
Physical therapy evaluation.
garde manager for discharge disposition to rehab.
Asthma without Exacerbation
- Continue inhaler regimen / albuterol PRN.
Anxiety / Depression
- Patient tearful / depressed in the ED.
- Continue Lexapro. Increased to 30 mg daily.
Obesity due to excess calories
- Affects all aspects of care.
- Encourage healthy diet and increased activity with goal of weight loss.
DVT Prophylaxis: Lovenox held with concern for hyperkalemia. Mechanical.
Code Status: Full
Anticipated Discharge: 24 - 48 hours
Subjective/Interval History
-
Date of Service: February 28, 2024
Objective Data
-
Labs:
Laboratory Results
02/28/24
08:01
WBC 9.2
Hgb 10.0 L
Hct 30.8 L
Plt Count 408 H
Sodium 138
Potassium 5.3 H
Chloride 103
Carbon Dioxide 24
BUN 31 H
Creatinine 1.1 H
Glucose 145 H
Calcium 9.5
Vital Signs:
Vital Signs
Temp Pulse Resp BP Pulse Ox
98.3 F 70 18 187/82 95
02/28/24 07:34 02/28/24 07:34 02/28/24 07:34 02/28/24 07:34 02/28/24 07:45
I&O
02/27/24 02/28/24 02/29/24
06:59 06:59 06:59
Intake Total 1020 / 1020 560 / 560
Balance 1020 / 1020 560 / 560
Physical Exam
-
General: No Apparent Distress
HEENT: Normocephalic and Atraumatic
Respiratory: Negative Wheezes
Cardiac: Regular Rhythm and S1/S2
GI: Soft
Genito-urinary: No Costovertebral Tender
Neuro: AO x 3
Psych: Calm
[2024-02-28 15:23] VITALS: BP 158/61
[2024-02-28 16:55] LABS: Glucose - Point of Care 181 mg/dl (70-99)
--- NOTE | 2024-02-28 17:04 | CM ---
continues to follow for discharge to home with [facility]. Jessi has been making gains in therapy and it appears that she will be able to manage in the home. [facility] will follow up at discharge.
Plan: Discharge to home with [facility]. Her will transport at discharge.
[2024-02-28 18:54] LABS: Tacrolimus (Prograft - FK506) 8.4 ng/mL
[2024-02-28] MEDS: APRESOLINE 100 MG PO (20:02)
[2024-02-28] MEDS: ASPIR LOW (ENTERIC COATED) 81 MG PO (21:22)
[2024-02-28] MEDS: LIPITOR 80 MG PO (21:22)
[2024-02-28 21:45] LABS: Glucose - Point of Care 179 mg/dl (70-99)
[2024-02-28 23:45] VITALS: BP 180/70
[2024-02-29 03:00] VITALS: BP 114/75
[2024-02-29 04:17] VITALS: BMI 38.5
[2024-02-29] MEDS: TYLENOL 650 MG PO (04:29)
[2024-02-29] MEDS: SYMBICORT 160/4.5 MCG INHALER 1 PUFF INH (07:42)
[2024-02-29 07:53] VITALS: BP 187/77
[2024-02-29 07:57] LABS: Blood Urea Nitrogen 32 mg/dl (7-17); Calcium 9.5 mg/dl (8.4-10.2); Carbon Dioxide 26 mmol/L (22-30); Chloride 104 mmol/L (98-107); Estimated Creatinine Clearance 53 ml/min; Glucose 127 mg/dl (70-99); Potassium 4.8 mmol/L (3.5-5.1); Sodium 138 mmol/L (135-145)
--- NOTE | 2024-02-29 08:08 | PN.DE.MGMTRT ---
Insulin Management
- -
02/29/2024: Diabetes Management Follow up:
Patient admitted 02/15 s/p fall at home. PMH CHF, HTN, HCL, asthma, diabetes, renal failure with transplant, hypothyroid, depression, carotid artery stenosis, migraine, sarcoidosis, diverticulitis, pancreatitis, IBS. Prior to admission patient was
taking Tresiba 36 units BID with Humalog 24 units AC.
States she was diagnosed at age 22, did take oral diabetes meds for about 5 years then switched to insulin. She currently sees Dr. Sallie Duffy endocrine for diabetes management patient states Dr. Duffy told her she was probably
misdiagnosed and has type 1 diabetes.
Glucose on admission 609. 8/15 AM labs indicated GAP of 18, insulin infusion was started. Current A1C 12.6%, Last A1C 12.8% October 2023. 02/27 Cr 1.2, eGFR 49.
Patient awake alert and oriented, able to discuss diabetes plan.
Pt was transitioned from IV insulin to subcutaneous insulin on 02/17.
02/24 Insulin doses adjusted down from NovoLog 33 units AC to 10 units for 2 consecutive episodes of hypoglycemia at dinner time on 02/23 & 02/24
02/27 premeal range 162 to 236, fasting glucose 127 this AM.
Will make no changes to current regimen: Lantus 36 units BID, NovoLog 10 units AC and low corrective with meals.
Diabetes History
- -
Type of Diabetes: 1
Pre-Admission Diabetes Regimen
02/28/24 02/29/24
08: 06:25
Creatinine 1.1 H 1.2 H
Lab Results
Hemoglobin A1c 12.6 % (4.0-5.6) H 02/16/24 11:45
Insulin Pump Settings
IP Diabetes Regimen
02/28/24 02/28/24 02/28/24
08:07 11: 12:17
Glucose 145 H
POC Glucose 162 H 236 H
02/28/24 02/28/24 02/29/24
16:54 21:44 06:25
Glucose 127 H
POC Glucose 181 H 179 H
Meal type: Lunch
Meal type: Breakfast
Amount consumed: 100%
Amount consumed: 100%
Patient Education
[2024-02-29 08:15] LABS: Glucose - Point of Care 123 mg/dl (70-99)
[2024-02-29] MEDS: NOVOLOG FLEXPEN-LOW RESISTANCE SC (08:28)
[2024-02-29] MEDS: COLACE 100 MG PO (08:29)
[2024-02-29] MEDS: APRESOLINE 100 MG PO (08:30)
[2024-02-29] MEDS: SODIUM BICARBONATE 650 MG PO ×2 (08:30→15:46)
[2024-02-29] MEDS: MYFORTIC DELAYED REL. 360 MG PO (08:31)
[2024-02-29] MEDS: PROTONIX 40 MG PO (08:31)
[2024-02-29] MEDS: PROGRAF 4 MG PO (08:31)
[2024-02-29] MEDS: LEXAPRO 30 MG PO (08:31)
[2024-02-29] MEDS: LASIX 40 MG PO (08:31)
[2024-02-29] MEDS: COREG 6.25 MG PO (08:31)
[2024-02-29] MEDS: LANTUS 0.36 UNITS SC (08:32)
[2024-02-29] MEDS: NOVOLOG FLEXPEN 10 UNITS SC ×2 (08:32→12:34)
[2024-02-29] MEDS: IMODIUM PO (08:34)
[2024-02-29] MEDS: MIRALAX PO (08:35)
[2024-02-29] MEDS: IMODIUM 2 MG PO (11:07)
[2024-02-29 12:05] LABS: Glucose - Point of Care 205 mg/dl (70-99)
[2024-02-29] MEDS: NOVOLOG FLEXPEN-LOW RESISTANCE 2 UNITS SC (12:34)
[2024-02-29 15:39] VITALS: BP 116/70
--- NOTE | 2024-02-29 15:54 | W.PN.NEPH.PH ---
Today's Communication / Plan
-
ok to d/c
Assessment/Plan
-
Impression
Hyperglycemia
Falls
Diarrhea
AG metabolic acidosis (21) with corrected Sodium
Renal transplant with baseline creatinine of 0.7 (2013)follows Dr Holder
Acute kidney and
Pseudo hyponatremia
Hyperkalemia
Hypertension
Diabetes
PVD
History of sarcoidosis
Hypercalcemia
ASCVD
Asthma
Anxiety and depression
Plan:
VIANEY-cr now stable 1-1.1, today 1.2-overall stable
but higher than baseline cr of 0.7
hyperkalemia-holding spironolactone and ARB still
stopped lovenox
BP seem to respond to meds, high in am
increased hydralazine
lasix 20mg daily
cot home dose of Tac
met acidosis -improved, decrease sodium bicarb to daily
could theoretically go home with BMP Tuesday and close f/u with Dr. Holder
-
-
Date of Service: February 29, 2024
CC / HPI / ROS
-
Chief Complaint:
hypoantremia, K txp
History of Present Illness:
sodium improved at 138
Cr 1.2
K better 4.8
BP are better post meds
Review of Systems:
no cp or sob
eating well
no fever
Labs
-
Labs:
WBC 9.2 10^3/uL (4.8-10.8) 02/28/24 08:01
RBC 3.59 10^6/uL (4.20-5.40) L 02/28/24 08:01
Hgb 10.0 g/dL (12.0-16.0) L 02/28/24 08:01
Hct 30.8 % (37.0-47.0) L 02/28/24 08:01
Plt Count 408 10^3/uL (130-400) H 02/28/24 08:01
Sodium 138 mmol/L (135-145) 02/29/24 06:25
Potassium 4.8 mmol/L (3.5-5.1) 02/29/24 06:25
Chloride 104 mmol/L (98-107) 02/29/24 06:25
Carbon Dioxide 26 mmol/L (22-30) 02/29/24 06:25
BUN 32 mg/dl (7-17) H 02/29/24 06:25
Creatinine 1.2 mg/dL (0.6-1.0) H 02/29/24 06:25
eGFR 49.00 02/29/24 06:25
Glucose 127 mg/dl (70-99) H 02/29/24 06:25
Calcium 9.5 mg/dl (8.4-10.2) 02/29/24 06:25
Phosphorus 2.7 mg/dl (2.5-4.5) 02/17/24 05:40
Albumin 3.8 g/dl (3.5-5.0) 02/16/24 03:10
Physical Exam
-
Vital Signs:
Vital Signs
Temp Pulse Resp BP Pulse Ox
98.1 F 65 20 187/77 95
02/29/24 07:53 02/29/24 08:30 02/29/24 07:53 02/29/24 08:30 02/29/24 07:53
Cardiovascular:: Regular rate and rhythm
Respiratory:: Bilateral: CTA
Lung Excursion:: Normal
Abdomen:: Nontender and Soft
Extremity Edema:: +1: Bilateral:
Bowers Catheter: No
--- NOTE | 2024-02-29 16:10 | W.DS.TRANS ---
DC Summary - Careers Counsellor
-
Discharge Instructions:
Sleep Apnea Risk Intermediate
Discharge Diagnosis/Procedures Impression:
Patient is a 69y F with PMH significant for DM,
CKD s/p renal transplant and chronic diarrhea
who presents to ED for evaluation s/p fall at
home.
DKA.
VIANEY on CKD 2.
Hyperkalemia
Pseudohyponatremia
Hypercalcemia
Leukocytosis
Troponin elevation secondary to nonischemic
cardiac injury in the settings of DKA.
Falls at home
Conditions prior to admission:
IDDM
Renal transplant
Immunosuppression with Prograf and CellCept.
ASCVD/carotid artery disease.
Essential hypertension
Asthma.
Obesity with BMI of 36.
Chronic diarrhea
Anxiety/depression.
Diet Diabetic, Carb Controlled
Blood Work BMP 03/02/2024
Instructions:
Stand-Alone Forms:
Changes to Home Medications: Yes
Discharge Medications:
DC Medications w/original date entered in [email or web address]
escitalopram oxalate 20 mg tablet 20 mg PO DAILY Mental Health/Anxiety 08/05/16
mycophenolate sodium 180 mg tablet,delayed release 360 mg PO BID Transplant 08/05/16
pantoprazole 40 mg tablet,delayed release 40 mg PO DAILY Gastrointestinal issue 08/05/16
tacrolimus 1 mg capsule, immediate-release 4 mg PO BID Transplant 08/05/16
acetaminophen 500 mg tablet (Tylenol Extra Strength) 1,000 mg PO BIDPRN PRN mild pain 09/05/19
cyanocobalamin (vitamin B-12) 1,000 mcg tablet 1,000 mcg PO HS Supplement 09/01/21
ezetimibe 10 mg tablet 10 mg PO DAILY High cholesterol 09/01/21
albuterol sulfate 90 mcg/actuation aerosol inhaler 2 puff inhalation R Q4HPRN PRN sob 10/27/23
aspirin 81 mg tablet,delayed release 81 mg PO HS Blood Clot Prevention/Tx 10/27/23
atorvastatin 80 mg tablet 80 mg PO HS High cholesterol 10/27/23
budesonide-formoterol HFA 160 mcg-4.5 mcg/actuation aerosol inhaler 1 puff inhalation R BID Lung/Breathing Issues 10/27/23
carvedilol 6.25 mg tablet 6.25 mg PO BID Heart Disease/Condition 10/27/23
hydralazine 50 mg tablet 50 mg PO BID Blood pressure 10/27/23
cyclobenzaprine 10 mg tablet 10 mg PO DAILYPRN PRN spasms 02/16/24
insulin degludec 100 unit/mL (3 mL) subcutaneous pen (Tresiba FlexTouch U-100 insulin) 36 unit SC BID Diabetes 02/16/24
loperamide 2 mg capsule 2 mg PO QIDPRN PRN diarrhea 02/16/24
furosemide 20 mg tablet 20 mg PO DAILY #30 tabs 02/29/24
insulin lispro 100 unit/mL subcutaneous pen (Humalog KwikPen (U-100) Insulin) 10 unit (0.1 mL) SC AC Diabetes #0 mL 02/29/24
polyethylene glycol 3350 17 gram oral powder packet (HealthyLax) 17 g PO DAILY #30 ea 02/29/24
sodium bicarbonate 650 mg tablet 650 mg PO DAILY #30 tabs 02/29/24
Home Medication Changes
Losartan and spironolactone discontinued due to hyperkalemia.
Lasix and bicarbonate initiated.
Premeal insulin dose reduced
Pending Results: No
--- NOTE | 2024-03-02 14:35 | PN.CDI ---
CDI
- -
CDI:
Physician Documentation Request
Admit Date: 02/16/24 05:42
Dear Doctor Morales,
Please review the following and provide your response in the progress notes.
The purpose of this query is to ensure the accuracy of the conditions reported for your patient.
The request is for one of the following:
Please indicate in your progress notes if you are in agreement that the ATN diagnosis is valid for this patient:
Nephrology PN, 02/20
#VIANEY: cr slightly improved from prior to 1.7 (peak 2.0)
#- no clear etiology, follow bladder scan, possible relative hypotension , hold ARB
#- Hyponatremia stable today, corrected at 129.
#...urine studies consistent with hypovol hyponatremia
#- renal ultrasound with elevated resistive indices --> could this be ATN from DKA?
Nephrology, PN, 02/24
#VIANEY: cr slow to improve 1.3 (peak 2.0)
#...prerenal-possible relative hypotension , ARB held
#- Hyponatremia sodium better with IVF
#renal ultrasound with elevated resistive indices -- likely from ATN
#hyperK worse and non anion gap met acidosis
#...--> could this be a type 4 RTA from diabetes?
Nephrology, PN, 02/25
#VIANEY: cr slow to improve 1.0 (peak 2.0)
#...prerenal-possible relative hypotension , ARB held
#renal ultrasound with elevated resistive indices -- likely from ATN
#hyperK worse and non anion gap met acidosis --> could this be a type 4 RTA from diabetes?
#repeat lasix and initiated on lokelma
#worried about interaction with tac
Discharge Summary, 02/28
#Acute kidney injury on CKD, stage 2. Patient is a renal transplant.
Laboratory Tests
02/16/24 02/16/24 02/16/24
03:10 08:45 11:45
Creatinine 1.2 H 1.0 1.0
eGFR 49.00 > 60.00 > 60.00
02/16/24 02/16/24 02/16/24
14:09 16:11 18:32
Creatinine 1.0 0.9 0.9
eGFR > 60.00 > 60.00 > 60.00
02/16/24 02/16/24 02/17/24
20:45 22:42 00:43
Creatinine 0.8 0.9 0.9
eGFR > 60.00 > 60.00 > 60.00
02/17/24 02/17/24 02/18/24
02:41 05:40 07:44
Creatinine 0.9 0.9 0.9
eGFR > 60.00 > 60.00 > 60.00
02/19/24 02/20/24 02/21/24
07:55 07:23 08:38
Creatinine 1.2 H 2.0 H 1.7 H
eGFR 49.00 26.54 32.26
02/22/24 02/23/24 02/24/24
08:33 06:52 08:31
Creatinine 1.5 H 1.4 H 1.3 H
eGFR 37.49 40.73 44.51
02/24/24 02/25/24 02/25/24
14:36 05:50 16:43
Creatinine 1.2 H 1.1 H 1.1 H
eGFR 49.00 54.39 54.39
02/26/24 02/26/24 02/27/24
07:37 13:45 06:52
Creatinine 1.0 1.1 H 1.0
eGFR > 60.00 54.39 > 60.00
02/28/24 02/29/24
08:01 06:25
Creatinine 1.1 H 1.2 H
eGFR 54.39 49.00
Based on the above information and the clinical indicators in the record, please clarify in the Progress Notes and Discharge Summary which of the following most accurately represents the patient's renal status:
VIANEY with ATN
VIANEY on baseline CKD stage 2
Other(please specify)
Criteria for VIANEY*
1 Increase in serum creatinine by > or = to 0.3 mg/dL (> or = to 26.5 micromol/L) within 48 hours, OR
2 Increase in serum creatinine to > or = to 1.5 times baseline, which is known or presumed to have occurred within 7 days, OR
3 Urine volume < 0.5 nL/kg/hour for six hours
Stages of Chronic Kidney Disease*
Level Description GFR
G1 Normal or High >90
G2 Mildly decreased 60-89
G3a Mildly to moderately decreased 45-59
G3b Moderately to severely decreased 30-44
G4 Severely decreased 15-29
G5 Kidney failure <15
Use of terms such as suspected, likely, concern for, or probable (associated with a specific diagnosis that is being evaluated, monitored, or treated as if it exists) are acceptable and can be coded in the inpatient setting, when documented at the
time of discharge.
Thank you,
Julia Coronel RN BSN CCDS
CDI Specialist
please contact via tiger text
Please use your independent medical judgment in providing your response.
*Source: Kidney Disease: Improving Global Outcomes (KDIGO) 2012
== END 2024-02-29 17:57 | disposition home health service (06) | DRG 638 ==
LOC: 4 EAST ACU 05:42
PROVIDERS: Hospitalist; Internal Medicine; Nurse Practitioner Family; Nurse Practitioner Gerontology; Student in an Organized Health Care Education/Training Program; ADMITTING PHYSICIAN Hospitalist; ATTENDING PHYSICIAN Internal Medicine; CONSULT PHYSICIAN Internal Medicine Cardiovascular Disease; CONSULT PHYSICIAN Specialist; EMERGENCY PHYSICIAN Emergency Medicine; FAMILY PHYSICIAN Family Medicine
DX: E11.10 Type 2 diabetes mellitus with ketoacidosis without coma (principal); D84.821 Immunodeficiency due to drugs; I13.0 Hypertensive heart and chronic kidney disease with heart failure and stage 1 through stage 4 chronic kidney disease, or unspecified chronic kidney disease; I50.32 Chronic diastolic (congestive) heart failure; I5A Non-ischemic myocardial injury (non-traumatic); N17.9 Acute kidney failure, unspecified; T86.19 Other complication of kidney transplant; E03.9 Hypothyroidism, unspecified; E11.22 Type 2 diabetes mellitus with diabetic chronic kidney disease; E11.51 Type 2 diabetes mellitus with diabetic peripheral angiopathy without gangrene; E11.649 Type 2 diabetes mellitus with hypoglycemia without coma; E66.09 Other obesity due to excess calories; F32.A Depression, unspecified; I65.22 Occlusion and stenosis of left carotid artery; J45.909 Unspecified asthma, uncomplicated; Z68.36 Body mass index [BMI] 36.0-36.9, adult; I44.1 Atrioventricular block, second degree; N18.2 Chronic kidney disease, stage 2 (mild); D86.9 Sarcoidosis, unspecified; E83.42 Hypomagnesemia; E78.00 Pure hypercholesterolemia, unspecified; E83.52 Hypercalcemia; E86.1 Hypovolemia; E87.5 Hyperkalemia; F41.9 Anxiety disorder, unspecified; I25.10 Atherosclerotic heart disease of native coronary artery without angina pectoris; K21.9 Gastro-esophageal reflux disease without esophagitis; H54.61 Unqualified visual loss, right eye, normal vision left eye; G89.29 Other chronic pain; M54.9 Dorsalgia, unspecified; K52.9 Noninfective gastroenteritis and colitis, unspecified; R79.89 Other specified abnormal findings of blood chemistry; R29.6 Repeated falls; W01.0XXA Fall on same level from slipping, tripping and stumbling without subsequent striking against object, initial encounter; Y92.009 Unspecified place in unspecified non-institutional (private) residence as the place of occurrence of the external cause; Z91.81 History of falling; Z79.4 Long term (current) use of insulin; Z79.621 Long term (current) use of calcineurin inhibitor; Z79.624 Long term (current) use of inhibitors of nucleotide synthesis; Z79.899 Other long term (current) drug therapy; Z87.19 Personal history of other diseases of the digestive system; Z86.73 Personal history of transient ischemic attack (TIA), and cerebral infarction without residual deficits; Z87.891 Personal history of nicotine dependence; Z90.49 Acquired absence of other specified parts of digestive tract; Z90.710 Acquired absence of both cervix and uterus; Z88.1 Allergy status to other antibiotic agents; Z88.2 Allergy status to sulfonamides; Z88.3 Allergy status to other anti-infective agents
CPT/HCPCS: 51701; 70450; 71045; 76770; 80048; 80053; 80197; 81003; 81015; 82010; 82805; 82947; 82962; 83036; 83735; 83935; 84100; 84300; 84443; 84484; 85025; 85027; 87040; 87811; 93005; 93306; 94640; 96361; 96374; 96376; 97116; 97163; 97167; 97530; 97535; 99291

== ENCOUNTER → 2024-04-19 11:32 | Outpatient (REF) | payer OTHER, MEDICARE, SELFPAY | LOC: DHVS 11:32 | PROVIDERS: ATTENDING PHYSICIAN Surgery Vascular Surgery | DX: I65.22 Occlusion and stenosis of left carotid artery (principal) | CPT/HCPCS: 93880 ==

== ENCOUNTER → 2024-11-21 12:46 | Outpatient (REF) | payer OTHER, MEDICARE, SELFPAY | LOC: HWRAD 12:46 | PROVIDERS: ATTENDING PHYSICIAN Orthopaedic Surgery | DX: M79.661 Pain in right lower leg (principal); M79.662 Pain in left lower leg | CPT/HCPCS: 93971 ==